=== PATIENT | male | born 1990 | race Two or more races ===

== ENCOUNTER 2016-10-15 00:55 | Inpatient (IN) | payer MEDICAID ==
[2016-10-15] VITALS (35 sets, daily range): BP systolic 82–133; BP diastolic 44–89
[~2016-10-15] VITALS: Ht 165.1 cm; Wt 55.8 kg
[~2016-10-15 00:55] MED LIST: ACET-868 GT; ALBU2.5V13 IN; ALBU2.5V13 NEB; BISA10SU61 PR; CHLO15MO2 MM; CRAN3875 GT; DEXT1DRO3 EACHEYE; DOCU50LI GT; FAMO-130 GT; HEPA500013 SQ; IPRA0.2S9 HHN; IPRA0.2S9 IH; LACT-96 GT; MAGN400O6 GT; METO25TA6 GT; METO5SOL2 GT; MULT-213 GT; MUPI22OI7; NA P133E RC; SACC250C6 GT; VIT500LI GT
[2016-10-15] MEDS ORDERED: LEVOFLOXACIN 750 MG /D5W 150ML PIGGYBACK IV ONE (01:00)
[2016-10-15] MEDS ORDERED: IV NS 0.9% 1,000 ML BAG IV ONE ×2 (01:00→12:30)
[2016-10-15] MEDS ORDERED: MEROPENEM 1,000 MG in IV NS 0.9% 100 ML IV ONE (01:00)
[2016-10-15] MEDS ORDERED: ACETAMINOPHEN ES 500 MG TABLET PO ONE (01:00)
--- NOTE | 2016-10-15 01:00 | NUR ---
bb from [facility]; elevated temp and tachycardic PT BIBRA FROM [facility] FOR ELEVATED TEMP AND TACHYCARDIA. PT OBTUNDED. CONNTECTED TO VENT WITH PRESCRIBED SETTINGS AC 18, TV 400 FIO2 40% AND PEEP 5. PT NTOED WITH GTUBE INTACT AND PATENT. F/C REPLACED PER DR. CAPELLAN ORDER. NO NVD NOTED. PT NOT DIAPHORETIC. PT GOWNED AND PLACED ON MONITOR. DR CAPELLAN AT BEDSIDE FOR EVAL.
[2016-10-15] MEDS ORDERED: ACETAMINOPHEN 650 MG/20.3 ML UDC ONE (01:20)
--- NOTE | 2016-10-15 01:31 | NUR ---
VERBAL ORDERS PER DR. CAPELLAN TO GIVE TYLENOL LIQ 1000MG VVIA GT ONE TIME NOW.
[2016-10-15 01:34] LABS: EOSINOPHILS % (AUTO) 0.1 % (0.0-6.0); HEMATOCRIT 33 % (39-51); HEMOGLOBIN 10.5 g/dL (13.5-17.5); LYMPHOCYTES # (AUTO) 0.7 /CMM (0.8-4.8); LYMPHOCYTES % (AUTO) 4.5 % (20.0-44.0); MEAN CORPUSCULAR HEMOGLOBIN 26 PG (26.0-33.0); MEAN CORPUSCULAR HGB CONC 32 g/dl (31.0-36.0); MEAN CORPUSCULAR VOLUME 82 fL (80-96); MONOCYTES # (AUTO) 0.9 /CMM (0.1-1.30); MONOCYTES % (AUTO) 5.5 % (2.0-12.0); NEUTROPHILS # (AUTO) 14.5 /CMM (1.8-8.9); NEUTROPHILS % (AUTO) 89.9 % (43.0-81.0); PLATELET COUNT (AUTO) 608 /CMM (150-450); RDW COEFFICIENT OF VARIATION 16.4 (11.5-15.0); RED BLOOD CELL COUNT(AUTO) 3.97 MIL/uL (4.5-6.0); WHITE BLOOD COUNT (AUTO) 16.1 K/uL (4.3-11.0)
--- NOTE | 2016-10-15 01:35 | NUR ---
XRAY AT BEDSIDE
[2016-10-15 01:39] LABS: CALCIUM, SERUM 9.4 mg/dL (8.5-10.1); CREATININE 0.2 mg/dL (0.6-1.3); POTASSIUM 4.2 mmol/L (3.5-5.1)
[2016-10-15 01:45] LABS: ALBUMIN 3.1 g/dL (3.4-5.0); BILIRUBIN,DIRECT 0.2 mg/dL (0.0-0.2); BILIRUBIN,TOTAL 0.4 mg/dL (0.2-1.0); TOTAL PROTEIN, SERUM 9.6 g/dL (6.4-8.2)
[2016-10-15 01:49] LABS: LACTIC ACID 0.7 mmol/L (0.4-2.0)
--- NOTE | 2016-10-15 02:01 | NUR ---
EVE MOTHER [phone]
--- NOTE | 2016-10-15 02:34 | NUR ---
URINE COLLECTED. CALLED LAB FOR VAULT WORKER.
[2016-10-15 02:37] LABS: INR 1.05 (0.87-1.13); PROTHROMBIN TIME 11.3 SECS (9.5-12.7)
[2016-10-15] MEDS ORDERED: IV NS 0.9% 2,000 ML ONE (02:58)
[2016-10-15] MEDS ORDERED: IV SET PRIMARY 1 EA INFUS.SET MC ONE (02:58)
--- NOTE | 2016-10-15 03:05 | NUR ---
SAMPLE MOUNTER CATILAN AT BEDSIDE FOR EVAL.
[2016-10-15] MEDS ORDERED: MEROPENEM 1 G VIAL IV ONE (03:07)
[2016-10-15] MEDS ORDERED: IV NS 0.9% 100 ML IV ONE (03:08)
[2016-10-15] MEDS ORDERED: IV SET PRIMARY PUMP SET 1 EA INFUS.SET MC ONE ×3 (03:08→12:38)
[2016-10-15 03:11] LABS: APPEARANCE,URINE CLOUDY (CLEAR)
[2016-10-15 03:12] LABS: COLOR,URINE YELLOW (YELLOW)
[2016-10-15 03:13] LABS: PROTEIN,URINE 2+ mg/dl (NEGATIVE)
[2016-10-15 03:14] LABS: BILIRUBIN,URINE NEGATIVE (NEGATIVE); BLOOD, URINE 3+ Ery/uL (NEGATIVE); KETONES,URINE NEGATIVE (NEGATIVE); UGLUCOSE NEGATIVE (NEGATIVE)
[2016-10-15 03:15] LABS: LEUKOCYTE ESTERASE ,URINE 3+ (NEGATIVE); NITRITE, URINE POSITIVE (NEGATIVE); UROBILINOGEN,URINE 0.2 EU/dL (0.2)
[2016-10-15] MEDS ORDERED: IBUPROFEN SUSP 100 MG/5 ML UDC ONE (03:15)
--- NOTE | 2016-10-15 03:16 | NUR ---
ICU BED 258 PER HOUSE SUP
[2016-10-15 03:17] LABS: ADD URINE CULTURE YES; BACTERIA,URINE 3+ /HPF (None Seen); RBC,URINE TOO NUMEROUS TO COUN /HPF (0-2); SQUAMOUS EPITHELIAL CELL,UR Rare /HPF (None Seen); WBC,URINE TOO NUMEROUS TO COUN /HPF (0-3)
[2016-10-15 03:21] LABS: TRIPLE PHOSPHATE CRYSTAL,UR Rare /HPF (None Seen)
--- NOTE | 2016-10-15 03:26 | NUR ---
RECTAL TEMP 100.4. DR CAPELLAN AWARE.
[2016-10-15] MEDS ORDERED: ACETAMINOPHEN SUSP 80 MG/0.8 ML BOTTLE PO PRN (03:30)
[2016-10-15] MEDS ORDERED: IBUPROFEN SUSP 100 MG/5 ML UDC PO PRN ×2 (03:30→04:30)
[2016-10-15] MEDS ORDERED: LEVOFLOXACIN 750 MG /D5W 150ML 150 ML IV ONE (03:45)
--- NOTE | 2016-10-15 03:59 | NUR ---
REPORT GIVEN TO SAFETY AND HEALTH CONSULTANT FOR CONTINUE TO CARE.
--- NOTE | 2016-10-15 04:09 | NUR ---
PT TRANSFERED TO ICU VIA ACLS PROTOCOL.
--- NOTE | 2016-10-15 04:20 | NUR ---
SERVICE NOW DEVELOPER NOTES RECEIVED PT FROM ER. DX OF SEPSIS AND UTI. PT IS OBTUNDED, NO REFLEXES, NO WITHDRAWAL TO DEEP PAIN. TELE READS ST AT 108 BPM. ON VENT VIA TRACH, SETTINGS OF AC 18, TV 400, FIO2 40%, PEEP 5, TARIK WELL. SPB RANGING 86-93. RIGHT HAND 22G IV NOT WORKING, REMOVED. LEFT FOOT 20G IV RUNNING 2L NS BOLUS AND LEVAQUIN. SKIN ULCER NOTED AT LEFT BUTTOCKS. NEW RENEE CATH PLACED IN ER, DRAINING TO CLOUDY YELLOW URINE. PT NOTED WITH DIAPHORESIS, AFEBRILE. MODERATED AMOUNTS OF CLEAR THIN ORAL SECRETIONS. ORAL CARE RENDERED, BED BATH GIVEN, HOB ELEVATED, TURNED AND REPOSITIONED.
[2016-10-15] MEDS ORDERED: ENOXAPARIN SODIUM 40 MG/0.4 ML DISP.SYRIN SQ SCH (04:30)
[2016-10-15] MEDS ORDERED: METOPROLOL TARTRATE 25 MG TABLET GT SCH (04:30)
[2016-10-15] MEDS ORDERED: ENOXAPARIN SODIUM 40 MG/0.4 ML DISP.SYRIN SQ ONE (04:37)
[2016-10-15] MEDS ORDERED: IV NS 0.9% 1,000 ML ONE (04:38)
[2016-10-15] MEDS: IV NS 0.9% 1,000 ML IV PRN ×2 (04:48→12:42)
[2016-10-15] MEDS: LEVOFLOXACIN 750 MG /D5W 150ML 750 MG in PREMIX 1 EA IV SCH (04:58)
--- NOTE | 2016-10-15 05:15 | NUR ---
ACQUISITIONS EDITOR NOTES PT NOTED WITH LOW SBP RANGING 87-90. KENTRELL SKILL LABOR CONTACTED AND MADE AWARE. ORDER RECEIVED FOR MIDLINE, WANTS TO HOLD OFF ON LEVOPHED AT THIS TIME.
[2016-10-15] MEDS: IPRATROPIUM NEB FS 0.5 MG/2.5 ML AMPUL.NEB IH SCH ×3 (07:22→20:25)
--- NOTE | 2016-10-15 07:30 | NUR ---
ICU/RN: PT RECEIVED, INTUBATED, TOLERATING CURRENT VENT SETTINGS, OBTUNDED, DOES NOT RESPOND TO DEEP PAIN, GAG AND COUGH REFLEX ABSENT. LARGE AMOUNT OF CLEAR WHITE SECRETIONS SUCTIONED. HOB ELEVATED PER ASPIRATION PRECAUTIONS. PT FOR MIDLINE PLACEMENT. ALARM SOUNDS AUDIBLE. WILL CONT TO MONITOR PT.
[2016-10-15] MEDS ORDERED: ALBUTEROL FS 2.5 MG/0.5 ML VIAL.NEB NEB SCH (07:35)
--- NOTE | 2016-10-15 07:37 | NUR ---
RT PATIENT REC'D TRACHED ON [facility] VENT WITH ORDERED SETTINGS SET PER MD TOLERATED WELL. VENT ALARMS CHECKED + AUDIBLE. PATIENT NON RESPONSIVE, NO DISTRESS NOTED. SX'D WITH SMALL AMT PALE SEMITHICK SECRETIONS. B/S MG. STEVOU BAG AT HOB Addendum: 10/15/16 at 1755 by ROMIE RODRIGUEZ RT Amended: Links added.
[2016-10-15] MEDS ORDERED: SECONDARY IV SET 1 EA INFUS.SET MC ONE ×2 (08:37→15:30)
[2016-10-15] MEDS: MULTIVITAMIN LIQ 5 ML UDC GT SCH (08:55)
[2016-10-15] MEDS: ASCORBIC ACID SYRUP 500 MG/5 ML UDC GT SCH (08:56)
[2016-10-15] MEDS: CHLORHEXIDINE GLUCONATE 15 ML UDC MM SCH ×2 (08:56→16:55)
[2016-10-15] MEDS: METOCLOPRAMIDE HCL 10 MG/10 ML UDC GT SCH ×3 (08:56→16:55)
[2016-10-15] MEDS: ATENOLOL 50 MG TABLET GT SCH ×2 (08:56→14:11)
[2016-10-15] MEDS ORDERED: Medication Not On Formulary EA (Cran/Vitc/Mannose/Inulin/Brom (Uti-Stat Liquid) 30 ML) GT SCH (09:00)
[2016-10-15] MEDS ORDERED: SACCHAROMYCES BOULARDII 250 MG CAPSULE PO SCH (09:00)
[2016-10-15] MEDS: LACTOBACILLUS RHAMNOSUS GG 1 EACH CAP.SPRINK PO SCH ×2 (09:38→16:55)
[2016-10-15] MEDS: POLYVINYL ALCOHOL 15 ML BOTTLE EACHEYE SCH ×2 (09:38→17:05)
[2016-10-15] MEDS ORDERED: FIBERSOURCE HN 1,000 ML BOTTLE GT PRN (10:00)
[2016-10-15] MEDS ORDERED: ACETAMINOPHEN 160 MG/5 ML GT PRN (12:00)
[2016-10-15] MEDS ORDERED: IV NS 0.9% 250 ML BAG IV ONE (12:00)
[2016-10-15] MEDS ORDERED: IV NS 0.9% 1,000 ML IV PRN ×2 (12:30)
--- NOTE | 2016-10-15 12:30 | NUR ---
ICU/RN: DR TERRY AT THE BEDSIDE; NOTIFIED ON INCREASED HR 120'S, MINIMAL URINE OUTPUT AND DECREASED BP. ORDERS FOR IVF BOLUS AND FLUIDS NOTED AND CARRIED OUT.
--- NOTE | 2016-10-15 12:37 | NUR ---
RT PER DR CRISOSTOMO RR ON VENT LOWERED TO 14. RN AWARE. VENT ALARMS CHECKED + AUDIBLE. AMBU BAG AT HOB Addendum: 10/15/16 at 1238 by ROMIE RODRIGUEZ RT Amended: Links added.
[2016-10-15] MEDS: FIBERSOURCE HN 1,000 ML BOTTLE GT PRN (12:43)
[2016-10-15] MEDS: ACETAMINOPHEN 650 MG/20.3 ML UDC GT PRN ×2 (12:59→22:03)
[2016-10-15] MEDS ORDERED: MEROPENEM 500 MG in IV NS 0.9% 50 ML IV SCH (13:00)
[2016-10-15] MEDS: MEROPENEM 1 G in IV NS 0.9% 100 ML IV SCH ×2 (13:00→22:03)
[2016-10-15] MEDS: ALBUTEROL FS 2.5 MG/3 ML VIAL.NEB NEB SCH ×2 (13:30→20:25)
--- NOTE | 2016-10-15 13:55 | NUR ---
ICU/RN: DR MURRAY AT BEDSIDE; UPDATED ON PT STATUS. ORDERS NOTED AND CARRIED OUT.
[2016-10-15] MEDS ORDERED: LINEZOLID RTU BAG 600 MG in PREMIX 1 EA IV SCH (14:00)
--- NOTE | 2016-10-15 14:00 | NUR ---
ICU/RN: NON-ADMIN 500CC IV NS AND DUPLICATED 1L NS BOLUS. CLARIFIED WITH DR TERRY. ONLY ADMIN 1L NS BOLUS X1.
--- NOTE | 2016-10-15 14:01 | NUR ---
WOUND CARE CONSULT: PT NOT SEEN YET FOR SKIN ASSESSMENT DUE TO UNSTABLE PER RN. WILL SEE PT PT CONDITION PERMITS. ADMISSION PHOTO SHOWS A WOUND ON LEFT BUTTOCK. RECOMMENDATIONS MADE BASED ON ADMISSION PHOTO AND NURSING REPORT. PT ON FIRST STEP MATTRESS. PT TO BE TURNED AND REPOSITIONED EVERY 2 HRS PT CONDITION PERMITS, HEELS FLOATED. SKIN PROTECTION AND WOUND RECOMMENDATIONS DISCUSSED WITH NURSING STAFF. MD IN AGREEMENT WITH PLAN OF CARE.
[2016-10-15] MEDS: Z GUARD REMEDY 2 OZ OINT TP SCH (15:07)
[2016-10-15] MEDS: HYDROGEL DRESSING 90 GM TUBE TP PRN (15:07)
[2016-10-15] MEDS: HYDROGEL DRESSING 90 GM TUBE TP SCH (15:07)
[2016-10-15] MEDS: Z GUARD REMEDY 2 OZ OINT TP PRN (15:07)
[2016-10-15] MEDS: LINEZOLID RTU BAG 600 MG in PREMIX 1 EA IV SCH (15:41)
--- NOTE | 2016-10-15 16:00 | NUR ---
ICU/RN: BED BATH PROVIDED. WITH ONE MODERATE AMOUNT OF SOFT GREEN STOOL. WOUND CARE RENDERED. TOLERATED WELL.
--- NOTE | 2016-10-15 17:44 | NUR ---
RN NOTES RECEIVED PT FROM ICU IN ROOM 112-2, PT IS OBTUNDED, VENT DEPENDENT , TOLERATING CURRENT SETTING WELL, TRACH CARE AND ORAL SUCTIONING DONE , PT ON TELE ST IN 100'S, FIBERSOURCE RUNNING AT 35CC/HR VIA GT , NO RESIDUAL NOTED, L UPPER ARM MIDLINE CLEAN AND DRY ,SR UP x3, CALL LIGHT WITHIN EASY REACH, BED LOCKED AND IN LOW POSITION , WILL CONTINUE TO MONITOR PT CLOSELY AND NOTIFY MD FOR ANY SIGNIFICANT CHANGES.
--- NOTE | 2016-10-15 17:45 | NUR ---
ICU/RN: PT TRANSFERRED TO GAIL 112-2 WITHOUT INCIDENT ACCOMPANIED BY RN AND RT; REPORT GIVEN. BELONGINGS AND MEDS TRANSFERRED WITH PT.
--- NOTE | 2016-10-15 18:21 | NUR ---
RN NOTES PT STABLE, MOM AT THE BEDSIDE , TRACH CARE DONE.
--- NOTE | 2016-10-15 19:30 | NUR ---
RN INITIAL NOTE RECEIVED PT IN NO ACUTE DISTRESS IN BED. PT IS OBTUNDED. PT IS ON MECHANICAL VENT VIA TRACH. TRACH SITE IS CLEAN DRY INTACT AND PATENT. PT TOLERATING VENT SETTING WELL WITH O2 SAT @ 100%. PT IS ON TELE WITH ST ON THE MONITOR. PT HAS GTUBE THAT IS CLEAN DRY INTACT AND PATENT WITH FIBERSOURCE @ 35ML/HR, BUT WILL INCREASE (PER DIETARY) TO 65ML/HR. PT HAS F/C THAT CLEAN DRY INTACT AND PATENT WITH BHANU COLOR URINE DRAINING. PT HAS KALEB MIDLINE THAT IS CLEAN DRY INTACT AND PATENT WITH NS @ 75ML/HR. BED IN LOW LOCK POSITION WITH RIALS UP X 2. ALL SAFETY MEASURES ENSURED AND CARRIED OUT. WILL CONTINUE TO MONITOR PT.
--- NOTE | 2016-10-15 20:51 | NUR ---
pt received on vent via trach, settings as charted ambu bag at bedside alarms set and audible suctioned a small amount of thick yellow secretions breath sounds equal bilateral coarse pt receiving albuterol and atrovent q6 Addendum: 10/15/16 at 2052 by DRAGAN HAN RT Amended: Links added.
[2016-10-16] VITALS: BP 105/60
[2016-10-16] MEDS: IPRATROPIUM NEB FS 0.5 MG/2.5 ML AMPUL.NEB IH SCH ×4 (02:19→19:54)
[2016-10-16] MEDS: ALBUTEROL FS 2.5 MG/3 ML VIAL.NEB NEB SCH ×4 (02:19→19:30)
[2016-10-16] MEDS ORDERED: MEROPENEM 500 MG in IV NS 0.9% 50 ML IV SCH (03:00)
[2016-10-16] MEDS: LINEZOLID RTU BAG 600 MG in PREMIX 1 EA IV SCH ×2 (03:00→15:48)
[2016-10-16 04:00] VITALS: BP 96/62
[2016-10-16] MEDS: MEROPENEM 1 G in IV NS 0.9% 100 ML IV SCH ×3 (05:54→21:00)
--- NOTE | 2016-10-16 06:50 | NUR ---
RN CLOSING PT REMAINS IN NO ACUTE DISTRESS IN BED. PT DID NOT HAVE ANY SIGNIFICANT CHANGE IN CONDITION. ALL NEEDS MET ALL ORDERS CARRIED OUT. ALL SAFETY MEASURES ENSURED AND CARRIED OUT. WILL ENDORSE REPORT TO AM RN FOR CONTINUITY OF CARE.
[2016-10-16 08:00] VITALS: BP 125/78
--- NOTE | 2016-10-16 08:00 | NUR ---
RN INITIAL NOTE PT RECEIVED IN BED. ON TELE SINUS TACHYCARDIA HR 103. PT IS OBTUNDED. TRACH SHILEY #6, AC14, TV 400, FI02 40. PT SATING WELL. NO S/S OF RESPIRATORY DISTRESS OR SOB, GT INTACT. PT TOLERATING FEEDING WELL. FIBERSOURCE 50ML/HR. IV DRESSING C/D/I. FLUSHED AND PATENT. F/C INTACT, DRAINING WITH GRAVITY. SMALL SKIN WOUND ON BUTTOCKS, CLEANED AND APPLIED NEW DRESSING. SKIN WARM AND DRY TO TOUCH. NO S/S OF PAIN OR DISCOMFORT. SAFETY MEASURES IN PLACE, WILL CONTINUE TO MONITOR.
[2016-10-16] MEDS: ASCORBIC ACID SYRUP 500 MG/5 ML UDC GT SCH (08:18)
[2016-10-16] MEDS: MULTIVITAMIN LIQ 5 ML UDC GT SCH (08:19)
[2016-10-16] MEDS: METOCLOPRAMIDE HCL 10 MG/10 ML UDC GT SCH ×3 (08:19→17:13)
[2016-10-16] MEDS: CHLORHEXIDINE GLUCONATE 15 ML UDC MM SCH ×2 (08:19→17:13)
[2016-10-16] MEDS: POLYVINYL ALCOHOL 15 ML BOTTLE EACHEYE SCH ×2 (08:19→17:13)
[2016-10-16] MEDS: LACTOBACILLUS RHAMNOSUS GG 1 EACH CAP.SPRINK PO SCH ×2 (08:19→17:13)
[2016-10-16] MEDS: Z GUARD REMEDY 2 OZ OINT TP SCH (08:21)
[2016-10-16] MEDS: ATENOLOL 50 MG TABLET GT SCH (08:21)
[2016-10-16] MEDS: HYDROGEL DRESSING 90 GM TUBE TP PRN (08:22)
[2016-10-16] MEDS: HYDROGEL DRESSING 90 GM TUBE TP SCH (08:25)
[2016-10-16] MEDS: ENOXAPARIN SODIUM 40 MG/0.4 ML DISP.SYRIN SQ SCH (08:45)
--- NOTE | 2016-10-16 08:55 | NUR ---
WOUND CARE CONSULT: PT PRESENTS WITH EDEMA TO LOWER EXTREMITIES, IMMOBILITY AND TINY WOUND TO LEFT BUTTOCK PRESENT ON ADMISSION. SOME REDNESS TO SURROUNDING AREA WITH SLIGHT INDURATION. RECOMMEND SURGICAL CONSULT. CONTINUE PRESENT WOUND TREATMENT. DISCUSSED SKIN PROTECTION WITH NURSING STAFF. PT ON FIRST STEP MATTRESS. IN AGREEMENT WITH PLAN OF CARE. Addendum: 10/16/16 at 0857 by SHELIA ARGUELLES WNDNU Amended: Links added.
[2016-10-16 09:55] LABS: BASOPHILS % (AUTO) 0.2 % (0.0-2.0); EOSINOPHILS % (AUTO) 0.2 % (0.0-6.0); HEMATOCRIT 28 % (39-51); HEMOGLOBIN 8.9 g/dL (13.5-17.5); LYMPHOCYTES # (AUTO) 1.2 /CMM (0.8-4.8); MEAN CORPUSCULAR HEMOGLOBIN 26 PG (26.0-33.0); MEAN CORPUSCULAR HGB CONC 32 g/dl (31.0-36.0); MEAN CORPUSCULAR VOLUME 82 fL (80-96); MONOCYTES # (AUTO) 0.8 /CMM (0.1-1.30); MONOCYTES % (AUTO) 7.2 % (2.0-12.0); NEUTROPHILS # (AUTO) 8.7 /CMM (1.8-8.9); NEUTROPHILS % (AUTO) 81.4 % (43.0-81.0); PLATELET COUNT (AUTO) 444 /CMM (150-450); RDW COEFFICIENT OF VARIATION 15.7 (11.5-15.0); RED BLOOD CELL COUNT(AUTO) 3.39 MIL/uL (4.5-6.0); WHITE BLOOD COUNT (AUTO) 10.6 K/uL (4.3-11.0)
[2016-10-16 10:05] LABS: CALCIUM, SERUM 8.5 mg/dL (8.5-10.1); CREATININE 0.2 mg/dL (0.6-1.3); POTASSIUM 3.3 mmol/L (3.5-5.1)
--- NOTE | 2016-10-16 11:30 | NUR ---
RN NOTE PT RUNNING FEVER, TYLENOL GIVEN, ICE PACKS FOR COOLING, FAN. NOTIFIED
[2016-10-16] MEDS: ACETAMINOPHEN 650 MG/20.3 ML UDC GT PRN ×2 (11:37→22:26)
[2016-10-16 12:00] VITALS: BP 99/65
--- NOTE | 2016-10-16 13:00 | NUR ---
SUPERVISOR ELECTROLYTIC TINNING NOTE HR ON TELE MONITOR ST 110-120 ,ELY GONZALEZ DNP AWARE NO NEW ORDER GIVEN AT THIS TIME
--- NOTE | 2016-10-16 13:15 | NUR ---
nutrition consult received on 10/16 regarding TF rate, RD assessed patient on 10/15. currently on PEG feeding of FIBERSOURCE HN@50ml/hr, suggest Nutren pulmonary @ 45ml/hr x24hrs due to respiratory failure w/trach when medically feasible.
[2016-10-16] MEDS ORDERED: POTASSIUM CHLORIDE 20 MEQ POWDER PACKET NG SCH (14:00)
[2016-10-16] MEDS ORDERED: IV SET PRIMARY PUMP SET 1 EA INFUS.SET MC ONE (15:35)
[2016-10-16 16:00] VITALS: BP 116/76
--- NOTE | 2016-10-16 17:00 | NUR ---
LEAN LEADER NOTE ELY JAMA DNP ARE THAT PATIENT HAD EARLIER T101,1 TYLENOL GIVEN AND COOLING MEASURE PROVIDED , WILL CONT TO MONITOR CLOSELY, IVF STOPPED ORDERED
--- NOTE | 2016-10-16 18:27 | NUR ---
N CLOSING NOTE PT RESTING IN BED COMFORTABLY, ALL MD ORDERS CARRIED OUT. PT KEPT CLEAN AND DRY. IV SITE C/D/I PATENT, RUNNING FLUIDS. ALL SAFETY MEASURES IN PLACE AT ALL TIMES. REPORT WILL BE GIVEN TO PM RN FOR HARRY.
[2016-10-16 20:00] VITALS: BP 138/84
--- NOTE | 2016-10-16 20:00 | NUR ---
RECEIVED PATIENT OBTUNDED.AFEBRILE.NORMOTENSIVE.ST 123 PER MONITOR.NO ACUTE DISTRESS NOTED.CHRONIC VENT TRACH PATIENT ON AC 14,TV 400,FIO2 40%,PEEP 5.SPO2 100%.BILATERAL RHONCHI ON AUSCULTATION.SUCTION SMALL AMOUNT WHITE SECRETION.GT FEEDING NOT TOLERATED. RESIDUAL 250 ML.FEEDING OH HOLD FOR NOW WILL RECHECK RESIDUAL IN 2 HRS.FC TO GRAVITY DRAINING YELLOW URINE.REPOSITIONED TO COMFORT.UE AND LE OFFLOADED WITH PILLOWS.SAFETY CHECKED WITH CALL LIGHT AT BEDSIDE.REDNESS NOTED TO BILATERAL NECK,RIGHT SHOULDER AND RIGHT UPPER CHEST PHOTO TAKEN.CONTINUE TO MONITOR.
--- NOTE | 2016-10-16 20:03 | NUR ---
ALBUTEROL NOT GIVEN DUE TO INCREASE HR 138. RN NOTIFIED.
--- NOTE | 2016-10-16 21:30 | NUR ---
PT RECEIVED TRACH WITH MARIA E 6 ON VENT. NO RESP DISTRESS NOTED. PT TOLERATING VENT SETTINGS. SX'D FOR SML AMT OF THICK WHITE SECRETIONS. VENT ALARMS SET AND AUDIBLE. AMBU BAG AT BEDSIDE. VENT PLUGGED INTO RED OUTLET. WILL CONTINUE TO MONITOR. Addendum: 10/16/16 at 2131 by JAVI NOLAN RT Amended: Links added.
--- NOTE | 2016-10-16 22:45 | NUR ---
PATIENT FEBRILE 103.8 TEMPORAL.TYLENOL ADMINISTERED PRN. COMPLETE BED BATH RENDERED. AND COMPLETE LINENS CHANGED.APPLIED COOLING BLANKET AND CONTINUE TO MONITOR.ELECTRIC FAN ON.
[2016-10-17] VITALS: BP 103/59
--- NOTE | 2016-10-17 | NUR ---
PATIENT STATUS UNCHANGED.LATEST TEMP 100.3 CONTINUES COOLING MEASURES DONE. GT RESIDUAL 100 ML.GT FEEDING RESTARTED.HOB KEPT ELEVATED AT 30 DEGREES.
[2016-10-17] MEDS: IPRATROPIUM NEB FS 0.5 MG/2.5 ML AMPUL.NEB IH SCH ×4 (01:06→19:48)
[2016-10-17] MEDS: ALBUTEROL FS 2.5 MG/3 ML VIAL.NEB NEB SCH ×4 (01:07→19:48)
[2016-10-17] MEDS: LINEZOLID RTU BAG 600 MG in PREMIX 1 EA IV SCH (03:11)
[2016-10-17] MEDS ORDERED: SECONDARY IV SET 1 EA INFUS.SET MC ONE (03:12)
[2016-10-17 04:00] VITALS: BP_SYST 103; BP_SYST 104; BP_DIAS 59; BP_DIAS 66
--- NOTE | 2016-10-17 04:00 | NUR ---
PATIENT REDNESS TO NECK,SHOULDER AND RIGHT CHEST RESOLVED.LATEST TEMP 98.7.IV ANTIBIOTICS ADMINISTERED.GT FEEDING RESIDUAL 120 ML.FEEDING CONTINUED.
[2016-10-17] MEDS: LEVOFLOXACIN 750 MG /D5W 150ML 750 MG in PREMIX 1 EA IV SCH (05:03)
[2016-10-17] MEDS: MEROPENEM 1 G in IV NS 0.9% 100 ML IV SCH ×3 (06:42→20:35)
--- NOTE | 2016-10-17 06:48 | NUR ---
PATIENT REMAINS OBTUNDED.NO DISTRESS NOTED.VS STABLE.LATEST TEMP 97.7. ST 120'S. ALL NEEDS ANTICIPATED AND MET.GOOD URINE OUTPUT.
[2016-10-17 07:09] LABS: BASOPHILS % (AUTO) 0.1 % (0.0-2.0); EOSINOPHILS # (AUTO) 0.2 /CMM (0.0-0.7); EOSINOPHILS % (AUTO) 1.7 % (0.0-6.0); HEMATOCRIT 25 % (39-51); HEMOGLOBIN 8.1 g/dL (13.5-17.5); LYMPHOCYTES # (AUTO) 1.3 /CMM (0.8-4.8); MEAN CORPUSCULAR HEMOGLOBIN 27 PG (26.0-33.0); MEAN CORPUSCULAR HGB CONC 33 g/dl (31.0-36.0); MEAN CORPUSCULAR VOLUME 82 fL (80-96); MONOCYTES # (AUTO) 0.7 /CMM (0.1-1.30); MONOCYTES % (AUTO) 7.5 % (2.0-12.0); NEUTROPHILS # (AUTO) 7.1 /CMM (1.8-8.9); NEUTROPHILS % (AUTO) 76.7 % (43.0-81.0); PLATELET COUNT (AUTO) 627 /CMM (150-450); RDW COEFFICIENT OF VARIATION 15.3 (11.5-15.0); RED BLOOD CELL COUNT(AUTO) 2.99 MIL/uL (4.5-6.0); WHITE BLOOD COUNT (AUTO) 9.2 K/uL (4.3-11.0)
--- NOTE | 2016-10-17 07:20 | NUR ---
RN NOTE: RECEIVED PATIENT WHILE RESTING IN BED. PATIENT OBTUNDED, VENT/TRACH DEPENDANT. NO SOB, NO COMPLICATIONS AT THIS TIME. F/C INTACT. GT INTACT. IV AXB INFUSING. PATIENTS TEMPERATURE BEING MONITORED, NO FEVER AT THIS TIME. PATIENTS NEEDS ATTENDED TO, SAFETY MEASURES IN PLACE, WILL CONTINUE TO MONITOR.
[2016-10-17 07:37] LABS: CALCIUM, SERUM 8.9 mg/dL (8.5-10.1); POTASSIUM 4.4 mmol/L (3.5-5.1)
[2016-10-17 07:57] LABS: CREATININE 0.1 mg/dL (0.6-1.3)
[2016-10-17 08:00] VITALS: BP_SYST 131; BP_SYST 139; BP_DIAS 93
--- NOTE | 2016-10-17 08:00 | NUR ---
RN NOTE: GT RESIDUAL IS 250ML. GT FEEDING HELD. MD NOTIFIED, WILL CONTINUE TO MONITOR.
[2016-10-17] MEDS: POLYVINYL ALCOHOL 15 ML BOTTLE EACHEYE SCH ×2 (08:21→16:03)
[2016-10-17] MEDS: METOCLOPRAMIDE HCL 10 MG/10 ML UDC GT SCH ×3 (08:21→16:03)
[2016-10-17] MEDS: ASCORBIC ACID SYRUP 500 MG/5 ML UDC GT SCH (08:21)
[2016-10-17] MEDS: LACTOBACILLUS RHAMNOSUS GG 1 EACH CAP.SPRINK PO SCH ×2 (08:22→16:03)
[2016-10-17] MEDS: ATENOLOL 50 MG TABLET GT SCH (08:22)
[2016-10-17] MEDS: MULTIVITAMIN LIQ 5 ML UDC GT SCH (08:22)
[2016-10-17] MEDS: CHLORHEXIDINE GLUCONATE 15 ML UDC MM SCH ×2 (08:22→16:04)
[2016-10-17] MEDS: HYDROGEL DRESSING 90 GM TUBE TP SCH (08:23)
[2016-10-17] MEDS: Z GUARD REMEDY 2 OZ OINT TP SCH (08:23)
[2016-10-17] MEDS: ENOXAPARIN SODIUM 40 MG/0.4 ML DISP.SYRIN SQ SCH (08:25)
[2016-10-17] MEDS: ACETAMINOPHEN 650 MG/20.3 ML UDC GT PRN ×2 (10:32→21:05)
--- NOTE | 2016-10-17 10:43 | NUR ---
RN NOTE: PATIENT HAS TEMPERATURE OF 100.1. TYLENOL ADMINISTERED. COOLING BLANKET APPLIED, WILL CONTINUE TO MONITOR.
--- NOTE | 2016-10-17 11:00 | NUR ---
RN NOTE: PATIENT'S GT RESIDUAL IS 10ML. GT FEEDING RESTARTED, WILL CONTINUE TO MONITOR.
--- NOTE | 2016-10-17 11:15 | NUR ---
RN NOTE: PER ELY JAMA, RESTART GT FEEDING AT 35ML/HR AT THIS TIME AND SLOWLY INCREASE TOLERATED.
[2016-10-17] MEDS: FIBERSOURCE HN 1,000 ML BOTTLE GT PRN (11:19)
[2016-10-17 12:00] VITALS: BP_SYST 143; BP_SYST 144; BP_DIAS 71; BP_DIAS 72
--- NOTE | 2016-10-17 13:00 | NUR ---
RN NOTE: PATIENTS TEMPERATURE HAS COME DOWN TO 98.0. COOLING BLANKET REMOVED. WILL CONTINUE TO MONITOR.
[2016-10-17 16:00] VITALS: BP 143/72
--- NOTE | 2016-10-17 16:00 | NUR ---
RN NOTE: GT RESIDUAL CHECKED, 30 ML RESIDUAL. WILL CONTINUE TO RUN FEEDING AT 35ML/HR
--- NOTE | 2016-10-17 18:48 | NUR ---
RN NOTE: PATIENT RESTING IN BED, VENT DEPENDENT, OBTUNDED. PATIENTS GT FEEDING INFUSING. COOLING BLANKET IN PLACE. NO FEVER AT THIS TIME. PATIENTS NEEDS ATTENDED TO, SAFETY MEASURES IN PLACE, WILL ENDORSE TO SPRAY GUNNER FOR HARRY.
--- NOTE | 2016-10-17 19:30 | NUR ---
FABRIC SOURCER INITIAL NOTES PT RECEIVED IN BED RESTING. OBTUNDED. FAMILY AT BEDSIDE. ON [facility] VENT TOLERATING WELL AND SATING WELL. NO S/S OF RESPIRATORY DISTRESS NOTED AT THIS TIME. ON TELE SINUS TACH 120. IV KALEB MIDLINE CLEAN, DRY AND INTACT PATENT AND FLUSHING WELL. GTUBE FEEDING WELL TOLERATED AT THIS TIME, 10ML RESIDUAL. GTUBE PATENT AND FLUSHING WELL. RENEE CATHETER IN PLACE AND DRAINING BY GRAVITY, CLEAN AND PATENT.HAS COOLING BLANKET IN PLACE. ALL SAFETY MEASURES IN PLACE. WILL CONTINUE TO MONITOR.
[2016-10-17 20:00] VITALS: BP 123/82
[2016-10-17] MEDS: LINEZOLID 600 MG TABLET GT SCH (20:35)
--- NOTE | 2016-10-17 23:30 | NUR ---
CORRUGATED SHEET MATERIAL SHEETER NOTE PT FOUND WITH GTUBE PULLED OUT. RENEE INSERTED TO KEEP OPEN AND RESIDUAL ASPIRATED. MD NORIEGA AWARE AND ORDERED TO FOLLOW UP WITH GI IN THE MORNING. WILL CONTINUE TO MONITOR. ORDERS NOTED AND CARRIED OUT.
[2016-10-18] VITALS: BP 135/97
[2016-10-18] MEDS: ALBUTEROL FS 2.5 MG/3 ML VIAL.NEB NEB SCH ×4 (02:11→20:26)
[2016-10-18] MEDS: IPRATROPIUM NEB FS 0.5 MG/2.5 ML AMPUL.NEB IH SCH ×4 (02:11→20:26)
[2016-10-18] MEDS: LEVOFLOXACIN 750 MG /D5W 150ML 750 MG in PREMIX 1 EA IV SCH (03:30)
[2016-10-18 04:00] VITALS: BP 133/94
--- NOTE | 2016-10-18 05:30 | NUR ---
TURN SUPERVISOR NOTE DUE TO NO GTUBE ACCESS AT THIS TIME, THERE ARE NO IV PAIN MEDICATIONS AVAILABLE TO ADMINISTER FOR TACHYCARDIA. DR. NORIEGA ORDERED MORPHINE 1MG/0.5ML IVP Q4H PRN FOR SEVERE PAIN. ORDERS NOTED AND CARRIED OUT. WILL CONTINUE TO MONITOR.
[2016-10-18] MEDS: MEROPENEM 1 G in IV NS 0.9% 100 ML IV SCH ×3 (05:38→21:00)
--- NOTE | 2016-10-18 06:45 | NUR ---
PHOTO STUDIO ASSISTANT CLOSING NOTE. PT REMAINED STABLE DURING SHIFT. MECH VENT WITH TRACH WELL TOLERATED AND SATING WELL. IV SITE INTACT. RENEE CATHETER DRAINING WELL. TELE-SINUS TACHY DURING SHIFT. GTUBE SITE OPEN AND INTACT WITH RENEE CATHETER. WILL ENDORSE TO NEXT SHIFT FOR GI TO REINSERT GTUBE AND FOR HARRY.
[2016-10-18 07:07] LABS: BASOPHILS % (AUTO) 0.4 % (0.0-2.0); EOSINOPHILS # (AUTO) 0.1 /CMM (0.0-0.7); EOSINOPHILS % (AUTO) 1.4 % (0.0-6.0); HEMATOCRIT 36 % (39-51); HEMOGLOBIN 11.4 g/dL (13.5-17.5); LYMPHOCYTES # (AUTO) 1.7 /CMM (0.8-4.8); LYMPHOCYTES % (AUTO) 17.2 % (20.0-44.0); MEAN CORPUSCULAR HEMOGLOBIN 26 PG (26.0-33.0); MEAN CORPUSCULAR HGB CONC 32 g/dl (31.0-36.0); MEAN CORPUSCULAR VOLUME 82 fL (80-96); MONOCYTES # (AUTO) 0.7 /CMM (0.1-1.30); MONOCYTES % (AUTO) 7.7 % (2.0-12.0); NEUTROPHILS % (AUTO) 73.3 % (43.0-81.0); PLATELET COUNT (AUTO) 498 /CMM (150-450); RED BLOOD CELL COUNT(AUTO) 4.37 MIL/uL (4.5-6.0); WHITE BLOOD COUNT (AUTO) 9.6 K/uL (4.3-11.0)
--- NOTE | 2016-10-18 07:30 | NUR ---
PT RECEIVED RESTING COMFORTABLY IN BED WITH EYES CLOSED. NO S/S OR C/O PAIN OR DISTRESS NOTED. SIDE RAILS UP X2, CALL LIGHT LEFT WITHIN REACH. WILL CONTINUE PLAN OF CARE.
[2016-10-18 08:00] VITALS: BP 111/80
[2016-10-18 08:01] LABS: CALCIUM, SERUM 9.2 mg/dL (8.5-10.1); CREATININE 0.1 mg/dL (0.6-1.3); POTASSIUM 3.7 mmol/L (3.5-5.1)
[2016-10-18] MEDS: MULTIVITAMIN LIQ 5 ML UDC GT SCH (08:13)
[2016-10-18] MEDS: ASCORBIC ACID SYRUP 500 MG/5 ML UDC GT SCH (08:13)
[2016-10-18] MEDS: LINEZOLID 600 MG TABLET GT SCH ×2 (08:13→21:00)
[2016-10-18] MEDS: CHLORHEXIDINE GLUCONATE 15 ML UDC MM SCH ×2 (08:13→16:16)
[2016-10-18] MEDS: METOCLOPRAMIDE HCL 10 MG/10 ML UDC GT SCH ×3 (08:13→16:16)
[2016-10-18] MEDS: LACTOBACILLUS RHAMNOSUS GG 1 EACH CAP.SPRINK PO SCH ×2 (08:13→16:16)
[2016-10-18] MEDS: ATENOLOL 50 MG TABLET GT SCH (08:29)
[2016-10-18] MEDS: ENOXAPARIN SODIUM 40 MG/0.4 ML DISP.SYRIN SQ SCH (08:33)
[2016-10-18] MEDS: POLYVINYL ALCOHOL 15 ML BOTTLE EACHEYE SCH ×2 (08:35→17:40)
[2016-10-18] MEDS: HYDROGEL DRESSING 90 GM TUBE TP SCH (08:35)
[2016-10-18] MEDS: Z GUARD REMEDY 2 OZ OINT TP SCH (08:35)
--- NOTE | 2016-10-18 10:00 | NUR ---
PAGED DR RIBEIRO. AWAITING CALL BACK
--- NOTE | 2016-10-18 10:15 | NUR ---
RECEIVED CALL MD RIBEIRO.
[2016-10-18] MEDS ORDERED: DIATR MEGLU/DIATRIZOATE SODIUM 30 ML BOTTLE (GASTROGRAPHIN) ONE (10:24)
--- NOTE | 2016-10-18 10:25 | NUR ---
AT BEDSIDE DR RIBEIRO FOR GTUBE REPLACEMENT. NEW ORDERS RECEIVED, WILL CARRY OUT.
[2016-10-18 12:51] VITALS: BP 102/62
[2016-10-18 16:00] VITALS: BP 108/66
--- NOTE | 2016-10-18 18:22 | NUR ---
CHANGE OF SHIFT REPORT PT RESTING COMFORTABLY IN BED WITH EYES CLOSED. NO S/S OR C/O PAIN OR DISTRESS NOTED. SIDE RAILS UP X2, CALL LIGHT LEFT WITHIN REACH. PT KEPT CLEAN, DRY, AND COMFORTABLE. NO SIGNIFICANT CHANGES SINCE PREVIOUS SHIFT. WILL GIVE REPORT TO JOSE FRANCISCO FLOR.
--- NOTE | 2016-10-18 19:30 | NUR ---
TOASTER OPERATOR INITIAL NOTES PT RECEIVED IN BED RESTING. OBTUNDED. FAMILY AT BEDSIDE. ON [facility] VENT TOLERATING WELL AND SATING WELL. NO S/S OF RESPIRATORY DISTRESS NOTED AT THIS TIME. ON TELE SINUS TACH 120'S. IV KALEB MIDLINE CLEAN, DRY AND INTACT PATENT AND FLUSHING WELL. GTUBE FEEDING WELL TOLERATED AT THIS TIME, 20ML RESIDUAL. GTUBE PATENT AND FLUSHING WELL. RENEE CATHETER IN PLACE AND DRAINING BY GRAVITY, CLEAN AND PATENT.HAS COOLING BLANKET IN PLACE. ALL SAFETY MEASURES IN PLACE. WILL CONTINUE TO MONITOR.
[2016-10-18 20:00] VITALS: BP 103/60
[2016-10-18] MEDS ORDERED: SECONDARY IV SET 1 EA INFUS.SET MC ONE (20:53)
[2016-10-18] MEDS: IBUPROFEN SUSP 100 MG/5 ML UDC GT PRN (22:15)
[2016-10-19] VITALS: BP 126/86
[2016-10-19] MEDS: ALBUTEROL FS 2.5 MG/3 ML VIAL.NEB NEB SCH ×4 (01:33→19:18)
[2016-10-19] MEDS: IPRATROPIUM NEB FS 0.5 MG/2.5 ML AMPUL.NEB IH SCH ×4 (01:33→19:18)
[2016-10-19] MEDS: MORPHINE SULFATE INJ 2 MG/ML DISP.SYRIN IV PRN (01:51)
[2016-10-19 04:00] VITALS: BP 137/91
[2016-10-19] MEDS: MEROPENEM 1 G in IV NS 0.9% 100 ML IV SCH ×3 (04:51→21:10)
[2016-10-19] MEDS ORDERED: IV NS 0.9% 250 ML IV ONE (05:21)
[2016-10-19] MEDS ORDERED: IV SET PRIMARY PUMP SET 1 EA INFUS.SET MC ONE (05:21)
--- NOTE | 2016-10-19 06:30 | NUR ---
CMM PROGRAMMER CLOSING NOTE PT REMAINED STABLE DURING SHIFT. MECH VENT WELL TOLERATED, SATING WELL AND NO S/S OF RESPIRATORY DISTRESS NOTED. IV SITE CLEAN AND INTACT. GTUBE FEEDING WELL TOLERATED AND NO RESIDUAL AT THIS TIME. RENEE CATHETER DRAINING BY GRAVITY AND PATENT. ALL SAFETY MEASURES IN PLACE. WILL ENDORSE TO NEXT SHIFT FOR HARRY.
--- NOTE | 2016-10-19 07:00 | NUR ---
RN NOTES RECEIVED PT ON BED, OBTUNDED , NONVERBAL , VENT DEPENDENT , TRACH CARE DONE , TOLERATING CURRENT SETTING WELL, NO S/S OF RESPIRATORY DISTRESS NOTED AT THIS TIME. ON TELE SINUS TACH 120'S. L UA MIDLINE CLEAN, DRY AND INTACT PATENT AND FLUSHING WELL. TOLERATING G TUBE FEEDING WELL, NO RESIDUAL NOTED , .RENEE CATHETER IN PLACE AND DRAINING BY GRAVITY, CLEAN AND PATENT. COOLING BLANKET IN PLACE. SR UP x3, BED LOCKED AND IN LOW POSITION, ALL SAFETY MEASURES IN PLACE. WILL CONTINUE TO MONITOR PT CLOSELY AN NOTIFY MD FOR ANY SIGNIFICANT CHANGES .
--- NOTE | 2016-10-19 07:37 | NUR ---
RT PATIENT REC'D TRACHED ON [facility] VENT WITH SETTINGS SET PER MD TOLERATED WELL. VENT ALARMS CHECKED + AUDIBLE. TRACH SECURE + IN PROPER POSITION. PATIENT APPEARS COMFORTABLE AND IN NO DISTRESS. SX'D WITH SMALL AMT PALE SEMI-THICK SECRETIONS. B/S DIM COARSE. AMBU BAG AT [facility]. Addendum: 10/19/16 at 0844 by ROMIE RODRIGUEZ RT Amended: Links added.
[2016-10-19 07:40] LABS: CALCIUM, SERUM 8.7 mg/dL (8.5-10.1); CREATININE 0.2 mg/dL (0.6-1.3); POTASSIUM 4.5 mmol/L (3.5-5.1)
[2016-10-19 08:00] VITALS: BP 140/72
[2016-10-19] MEDS: CHLORHEXIDINE GLUCONATE 15 ML UDC MM SCH ×2 (08:23→16:37)
[2016-10-19] MEDS: ASCORBIC ACID SYRUP 500 MG/5 ML UDC GT SCH (08:23)
[2016-10-19] MEDS: MULTIVITAMIN LIQ 5 ML UDC GT SCH (08:24)
[2016-10-19] MEDS: ATENOLOL 50 MG TABLET GT SCH (08:24)
[2016-10-19] MEDS: METOCLOPRAMIDE HCL 10 MG/10 ML UDC GT SCH ×3 (08:24→16:37)
[2016-10-19] MEDS: LINEZOLID 600 MG TABLET GT SCH ×2 (08:24→21:10)
[2016-10-19] MEDS: LACTOBACILLUS RHAMNOSUS GG 1 EACH CAP.SPRINK PO SCH ×2 (08:24→16:37)
[2016-10-19] MEDS: ENOXAPARIN SODIUM 40 MG/0.4 ML DISP.SYRIN SQ SCH (08:25)
[2016-10-19] MEDS: POLYVINYL ALCOHOL 15 ML BOTTLE EACHEYE SCH ×2 (08:26→16:38)
[2016-10-19] MEDS: HYDROGEL DRESSING 90 GM TUBE TP PRN (08:26)
[2016-10-19] MEDS: Z GUARD REMEDY 2 OZ OINT TP SCH (08:26)
[2016-10-19] MEDS: HYDROGEL DRESSING 90 GM TUBE TP SCH (08:27)
[2016-10-19 12:00] VITALS: BP 107/67
--- NOTE | 2016-10-19 12:00 | NUR ---
RN NOTES PT STABLE, TRACH CARE DONE, TOLERATING TF WELL. NO RESIDUAL NOTED .
[2016-10-19] MEDS: IBUPROFEN SUSP 100 MG/5 ML UDC GT PRN (12:18)
[2016-10-19] MEDS: FIBERSOURCE HN 1,000 ML BOTTLE GT PRN (15:55)
[2016-10-19 16:00] VITALS: BP 112/77
--- NOTE | 2016-10-19 18:21 | NUR ---
RN NOTES TRACH CARE DONE , MEDICATED PER MD ORDER ,SUPPORTIVE FAMILY AT THE BEDSIDE, NO TF RESIDUAL NOTED , NO SIGNIFICANT CHANGES NOTED ON THIS SHIFT .
--- NOTE | 2016-10-19 19:23 | NUR ---
PT RECEIVED TRACHED ON VENT SETTINGS CHARTED. TRACH IS SECURE. NO RESP DISTRESS NOTED. SX WITH SMALL WHITE THICK SECRETIONS. VENT IS PLUGGED IN RED OUTLET. VENT ALARMS CHECKED AND AUDIBLE. AMBU BAG BEDSIDE. WILL CONTINUE TO MONITOR Addendum: 10/20/16 at 0459 by CHAVEZ POPE RT Amended: Links added.
[2016-10-19 20:00] VITALS: BP 99/66
[2016-10-20] VITALS (7 sets, daily range): BP systolic 107–143; BP diastolic 70–92
[2016-10-20] MEDS: IPRATROPIUM NEB FS 0.5 MG/2.5 ML AMPUL.NEB IH SCH ×4 (00:47→20:07)
[2016-10-20] MEDS: ALBUTEROL FS 2.5 MG/3 ML VIAL.NEB NEB SCH ×4 (00:47→20:08)
[2016-10-20] MEDS: MEROPENEM 1 G in IV NS 0.9% 100 ML IV SCH ×3 (05:04→21:07)
[2016-10-20 06:37] LABS: EOSINOPHILS # (AUTO) 0.2 /CMM (0.0-0.7); EOSINOPHILS % (AUTO) 1.5 % (0.0-6.0); HEMATOCRIT 36 % (39-51); HEMOGLOBIN 11.6 g/dL (13.5-17.5); LYMPHOCYTES # (AUTO) 1.6 /CMM (0.8-4.8); LYMPHOCYTES % (AUTO) 14.6 % (20.0-44.0); MEAN CORPUSCULAR HEMOGLOBIN 26 PG (26.0-33.0); MEAN CORPUSCULAR HGB CONC 32 g/dl (31.0-36.0); MEAN CORPUSCULAR VOLUME 82 fL (80-96); MONOCYTES # (AUTO) 0.6 /CMM (0.1-1.30); MONOCYTES % (AUTO) 5.3 % (2.0-12.0); NEUTROPHILS # (AUTO) 8.7 /CMM (1.8-8.9); NEUTROPHILS % (AUTO) 78.6 % (43.0-81.0); PLATELET COUNT (AUTO) 565 /CMM (150-450); RDW COEFFICIENT OF VARIATION 15.6 (11.5-15.0); RED BLOOD CELL COUNT(AUTO) 4.44 MIL/uL (4.5-6.0); WHITE BLOOD COUNT (AUTO) 11.1 K/uL (4.3-11.0)
[2016-10-20 06:53] LABS: CALCIUM, SERUM 9.7 mg/dL (8.5-10.1); CREATININE 0.2 mg/dL (0.6-1.3); MAGNESIUM 2.2 mg/dL (1.8-2.4); PHOSPHORUS 3.3 mg/dL (2.5-4.9); POTASSIUM 5.1 mmol/L (3.5-5.1)
--- NOTE | 2016-10-20 07:20 | NUR ---
LAMPS TESTER AND INSPECTOR INITIAL NOTES: Rec'd pt on bed, HOB elevated, obtunded. On MV via trache w/ following settings: Shiley #6 XLT, AC 14, TV 400, FiO2 40%, PEEP 5, saturating at 100%. On telemonitor, ST, HR 123 bpm. Has GT patent & intact, residual checked, on continuous GT feeding Fibersource at 50 ml/hr. Has FC patent & intact, draining to adequate yellow urine output. Pt's KALEB midline on TKO, patent & intact, no signs of infection/ infiltration noted. Call light placed w/in reached. Bed kept low & in locked position. Will continue to monitor.
[2016-10-20] MEDS: METOCLOPRAMIDE HCL 10 MG/10 ML UDC GT SCH ×3 (08:00→16:29)
[2016-10-20] MEDS: CHLORHEXIDINE GLUCONATE 15 ML UDC MM SCH ×2 (08:00→16:29)
[2016-10-20] MEDS: MULTIVITAMIN LIQ 5 ML UDC GT SCH (08:00)
[2016-10-20] MEDS: ASCORBIC ACID SYRUP 500 MG/5 ML UDC GT SCH (08:00)
[2016-10-20] MEDS: ATENOLOL 50 MG TABLET GT SCH (08:00)
[2016-10-20] MEDS: LACTOBACILLUS RHAMNOSUS GG 1 EACH CAP.SPRINK PO SCH ×2 (08:00→16:32)
[2016-10-20] MEDS: LINEZOLID 600 MG TABLET GT SCH ×2 (08:00→21:07)
[2016-10-20] MEDS: Z GUARD REMEDY 2 OZ OINT TP SCH (08:01)
[2016-10-20] MEDS: POLYVINYL ALCOHOL 15 ML BOTTLE EACHEYE SCH ×2 (08:01→16:31)
[2016-10-20] MEDS: HYDROGEL DRESSING 90 GM TUBE TP SCH (08:01)
[2016-10-20] MEDS: ENOXAPARIN SODIUM 40 MG/0.4 ML DISP.SYRIN SQ SCH (08:18)
--- NOTE | 2016-10-20 16:00 | NUR ---
RN NOTES: Pt seen & examined by Dr. Shultz & Dr. Ruiz, w/ no new orders made for now.
[2016-10-20] MEDS: FIBERSOURCE HN 1,000 ML BOTTLE GT PRN (16:29)
--- NOTE | 2016-10-20 18:34 | NUR ---
HIGH SCHOOL ENGLISH TEACHER CLOSING NOTES: No acute changes w/in shift. Pt is obtunded, not in any distress. MV settings tolerated well, saturating at 100%. FC patent & intact. Pt KALEB midline at TKO, infusing well, patent, C/D/I, no signs of infection/ infiltration. GT patent & intact. Wound care done. Turned & repositioned, offload heels done as per protocol. Isolation measures observed. Safety maintained. Will endorse to PM nurse for HARRY.
--- NOTE | 2016-10-20 19:30 | NUR ---
ENZYME CHEMIST INITIAL NOTE RECEIVED PT FROM SUDHEER FLOR. PT IN BED. MOTHER AT BEDSIDE. OBTUNDED. LUNG SOUNDS DIMINISHED. BOWEL SOUNDS PRESENT. GT PATENT AND INTACT WITH 100CC RESIDUAL. IV PATENT AND INTACT. PULSES PRESENT IN ALL EXTREMITIES. FLACCID EXTREMITIES. EXTREMITIES OFFLOADED. IV INTACT AND DRAINING. BED IN LOW LOCKED POSITION. WILL CONTINUE TO MONITOR.
[2016-10-21] VITALS: BP 107/67
[2016-10-21] MEDS: IPRATROPIUM NEB FS 0.5 MG/2.5 ML AMPUL.NEB IH SCH ×4 (00:43→20:28)
[2016-10-21] MEDS: ALBUTEROL FS 2.5 MG/3 ML VIAL.NEB NEB SCH ×4 (00:43→20:28)
[2016-10-21 04:00] VITALS: BP 157/69
[2016-10-21] MEDS ORDERED: IV SET PRIMARY PUMP SET 1 EA INFUS.SET MC ONE (04:01)
[2016-10-21] MEDS ORDERED: IV NS 0.9% 250 ML IV ONE (04:01)
[2016-10-21] MEDS: MEROPENEM 1 G in IV NS 0.9% 100 ML IV SCH ×3 (06:19→20:29)
--- NOTE | 2016-10-21 07:41 | NUR ---
GEM CARVER NOTE PATIENT IN BED ,ALL NEEDS ATTENDED , WITH TRACH TO VENT SETTING ORDERED AMBU BAG AT HOB AT ALL TIME, ON TELE MONITOR ST 124 HR , , WITH F\C TO GRAVITY , WITH G TUBE FEEDING ORDERED, KEEP HOB ELEVATED AT ALL TIME ,LT UPPER ARM MID LINE IN PLACE NO S\S INFECTION NOTED, SEEN BY RT , ON [employer] MATRES, BED IN LOWEST AND LOCKED POSITION, ALL NEEDS ATTENDED, CALL LIGHT WITHIN REACH,WILL CONT TO MONITOR CLOSELY
[2016-10-21 08:00] VITALS: BP 113/81
[2016-10-21 08:43] LABS: BASOPHILS % (AUTO) 0.3 % (0.0-2.0); EOSINOPHILS # (AUTO) 0.2 /CMM (0.0-0.7); EOSINOPHILS % (AUTO) 1.4 % (0.0-6.0); HEMATOCRIT 39 % (39-51); HEMOGLOBIN 12.3 g/dL (13.5-17.5); LYMPHOCYTES # (AUTO) 1.4 /CMM (0.8-4.8); LYMPHOCYTES % (AUTO) 11.8 % (20.0-44.0); MEAN CORPUSCULAR HEMOGLOBIN 26 PG (26.0-33.0); MEAN CORPUSCULAR HGB CONC 32 g/dl (31.0-36.0); MEAN CORPUSCULAR VOLUME 82 fL (80-96); MONOCYTES # (AUTO) 0.5 /CMM (0.1-1.30); MONOCYTES % (AUTO) 4.2 % (2.0-12.0); NEUTROPHILS # (AUTO) 9.5 /CMM (1.8-8.9); NEUTROPHILS % (AUTO) 82.3 % (43.0-81.0); PLATELET COUNT (AUTO) 647 /CMM (150-450); RDW COEFFICIENT OF VARIATION 15.6 (11.5-15.0); RED BLOOD CELL COUNT(AUTO) 4.72 MIL/uL (4.5-6.0); WHITE BLOOD COUNT (AUTO) 11.5 K/uL (4.3-11.0)
[2016-10-21] MEDS: LACTOBACILLUS RHAMNOSUS GG 1 EACH CAP.SPRINK PO SCH ×2 (08:44→16:28)
[2016-10-21] MEDS: LINEZOLID 600 MG TABLET GT SCH ×2 (08:44→20:29)
[2016-10-21] MEDS: MULTIVITAMIN LIQ 5 ML UDC GT SCH (08:44)
[2016-10-21] MEDS: ASCORBIC ACID SYRUP 500 MG/5 ML UDC GT SCH (08:44)
[2016-10-21] MEDS: METOCLOPRAMIDE HCL 10 MG/10 ML UDC GT SCH ×3 (08:44→16:28)
[2016-10-21] MEDS: CHLORHEXIDINE GLUCONATE 15 ML UDC MM SCH ×2 (08:44→16:28)
[2016-10-21] MEDS: ATENOLOL 50 MG TABLET GT SCH (08:45)
[2016-10-21] MEDS: ENOXAPARIN SODIUM 40 MG/0.4 ML DISP.SYRIN SQ SCH (08:47)
[2016-10-21] MEDS: POLYVINYL ALCOHOL 15 ML BOTTLE EACHEYE SCH ×2 (08:49→16:28)
[2016-10-21] MEDS: HYDROGEL DRESSING 90 GM TUBE TP SCH (08:49)
[2016-10-21] MEDS: Z GUARD REMEDY 2 OZ OINT TP SCH (08:50)
[2016-10-21 08:59] LABS: CALCIUM, SERUM 9.6 mg/dL (8.5-10.1); CREATININE 0.2 mg/dL (0.6-1.3); PHOSPHORUS 3.4 mg/dL (2.5-4.9); POTASSIUM 4.9 mmol/L (3.5-5.1)
[2016-10-21 12:00] VITALS: BP 110/72
--- NOTE | 2016-10-21 12:49 | NUR ---
PROGRAMMER ANALYST HEALTH IT NOTE DR. GONZALEZ EXAMINE PT. AWARE THAT LF. ARM RED WARM TO TOUCH AND RT. ARM COOL WITH NORMAL COLOR LEFT ARM ELEVATED. WILL CONTINUE TO MONITOR.
[2016-10-21] MEDS: FIBERSOURCE HN 1,000 ML BOTTLE GT PRN (15:58)
[2016-10-21 16:00] VITALS: BP 129/69
--- NOTE | 2016-10-21 16:39 | NUR ---
BRUSH TRIMMING MACHINE SETTER NOTES PT RESTING COMFORTABLY NOT IN ACUTE DISTRESS, KEEP CLEAN AND DRY , ORAL CARE DONE. WILL CONTINUE TO MONITOR CLOSELY.
--- NOTE | 2016-10-21 18:44 | NUR ---
JIG FILLER NOTE RESTING COMFORTABLY AT THIS TIME, CONT ON VENT SETTING NOT IN ACUTE DISTRESS
--- NOTE | 2016-10-21 19:30 | NUR ---
RN INITIAL NOTES RECEIVED PT ASLEEP ON BED, OBTUNDED, OPENS EYES ONLY. FAMILY AT BEDSIDE. ON VENT, SHILEY 6, AC 14, TV 400, 40% FIO2, PEEP 5. CURRENTLY ST ON THE MONITOR, HR 110'S. RENEE CATH INTACT. ON GTUBE FEEDING OF FIBERSOURCE @ 50MLS/HR, WITH 40MLS RESIDUALS, WILL RECHECK LATER. LEFT UPPER ARM MIDLINE FLUSHED AND PATENT, NO S/S OF INFILTRATION/INFECTION, DRESSING CDI. BED LOW AND LOCKED, SIDERAILS UP, BED ALARM ON. WILL MONITOR
[2016-10-21 20:00] VITALS: BP 111/71
[2016-10-22] VITALS: BP_SYST 119; BP_SYST 134; BP_DIAS 57; BP_DIAS 71
[2016-10-22] MEDS: ALBUTEROL FS 2.5 MG/3 ML VIAL.NEB NEB SCH ×4 (02:24→20:15)
[2016-10-22] MEDS: IPRATROPIUM NEB FS 0.5 MG/2.5 ML AMPUL.NEB IH SCH ×4 (02:24→20:15)
[2016-10-22 04:00] VITALS: BP 103/70
[2016-10-22] MEDS: MEROPENEM 1 G in IV NS 0.9% 100 ML IV SCH ×2 (04:06→13:21)
--- NOTE | 2016-10-22 06:30 | NUR ---
RN CLOSING NOTES PT REMAINS STABLE OF THE MOMENT. ALL DUE MEDS GIVEN. AM CARE PROVIDED. WILL ENDORSE TO AM RN
[2016-10-22 07:44] LABS: BASOPHILS % (AUTO) 0.3 % (0.0-2.0); EOSINOPHILS # (AUTO) 0.2 /CMM (0.0-0.7); EOSINOPHILS % (AUTO) 1.4 % (0.0-6.0); HEMATOCRIT 38 % (39-51); HEMOGLOBIN 12.5 g/dL (13.5-17.5); LYMPHOCYTES # (AUTO) 1.4 /CMM (0.8-4.8); LYMPHOCYTES % (AUTO) 12.1 % (20.0-44.0); MEAN CORPUSCULAR HEMOGLOBIN 27 PG (26.0-33.0); MEAN CORPUSCULAR HGB CONC 33 g/dl (31.0-36.0); MEAN CORPUSCULAR VOLUME 82 fL (80-96); MONOCYTES # (AUTO) 0.5 /CMM (0.1-1.30); MONOCYTES % (AUTO) 4.3 % (2.0-12.0); NEUTROPHILS # (AUTO) 9.5 /CMM (1.8-8.9); NEUTROPHILS % (AUTO) 81.9 % (43.0-81.0); PLATELET COUNT (AUTO) 717 /CMM (150-450); RDW COEFFICIENT OF VARIATION 16.3 (11.5-15.0); RED BLOOD CELL COUNT(AUTO) 4.63 MIL/uL (4.5-6.0); WHITE BLOOD COUNT (AUTO) 11.6 K/uL (4.3-11.0)
[2016-10-22 08:00] VITALS: BP_SYST 128; BP_DIAS 73; BP_DIAS 93
[2016-10-22] MEDS: CHLORHEXIDINE GLUCONATE 15 ML UDC MM SCH ×2 (09:24→16:10)
[2016-10-22] MEDS: ASCORBIC ACID SYRUP 500 MG/5 ML UDC GT SCH (09:24)
[2016-10-22] MEDS: LACTOBACILLUS RHAMNOSUS GG 1 EACH CAP.SPRINK PO SCH ×2 (09:24→16:10)
[2016-10-22] MEDS: METOCLOPRAMIDE HCL 10 MG/10 ML UDC GT SCH ×3 (09:24→16:10)
[2016-10-22] MEDS: LINEZOLID 600 MG TABLET GT SCH (09:24)
[2016-10-22] MEDS: MULTIVITAMIN LIQ 5 ML UDC GT SCH (09:24)
[2016-10-22] MEDS: ATENOLOL 50 MG TABLET GT SCH (09:26)
[2016-10-22] MEDS: HYDROGEL DRESSING 90 GM TUBE TP SCH (09:28)
[2016-10-22] MEDS: Z GUARD REMEDY 2 OZ OINT TP SCH (09:28)
[2016-10-22] MEDS: ENOXAPARIN SODIUM 40 MG/0.4 ML DISP.SYRIN SQ SCH (09:28)
[2016-10-22 09:30] LABS: EOSINOPHILS % (MANUAL) 2 % (0-4); LYMPHOCYTES % (MANUAL) 17 % (16-48); MONOCYTES % (MANUAL) 3 % (0-11.0); NEUTROPHILS % (MANUAL) 78 (42-76); PLATELET ESTIMATE INCREASED
[2016-10-22] MEDS: POLYVINYL ALCOHOL 15 ML BOTTLE EACHEYE SCH ×2 (09:30→16:31)
[2016-10-22] MEDS: FIBERSOURCE HN 1,000 ML BOTTLE GT PRN (09:38)
[2016-10-22 11:29] LABS: CREATININE 0.2 mg/dL (0.6-1.3); MAGNESIUM 2.2 mg/dL (1.8-2.4)
[2016-10-22 12:00] VITALS: BP 105/71
--- NOTE | 2016-10-22 15:00 | NUR ---
RN NOTE: BED BATH, WOUND CARE RENDERED, TOLERATED WELL.
[2016-10-22 16:00] VITALS: BP 102/62
[2016-10-22] MEDS ORDERED: PIPERACILLIN /TAZOBACTAM 4.5 G in IV D5W 50 ML IV SCH (16:00)
[2016-10-22] MEDS ORDERED: SECONDARY IV SET 1 EA INFUS.SET MC ONE (17:48)
[2016-10-22] MEDS: PIPERACILLIN /TAZOBACTAM 4.5 G in IV D5W 50 ML IV SCH (18:08)
--- NOTE | 2016-10-22 19:17 | NUR ---
ONSITE CASE MANAGER: NO ACUTE DISTRESS NOTED THROUGHOUT SHIFT. TOLERATING CURRENT VENT SETTINGS; AIRWAY CLEARED OF SECRETIONS. TOLERATING TF WITH 10 CC RESIDUAL. FC DRAINING WELL TO GRAVITY. AFEBRILE. ST 105ON MONITOR. CARE ENDORSED TO PM RN FOR HARRY.
[2016-10-22 20:00] VITALS: BP 113/73
--- NOTE | 2016-10-22 20:00 | NUR ---
TELE NOTES RECEIVED PT ON VENT PER TRACH W/ FI02 40%,JLP=[id number]%.DOES NOT O[PEN EYES TO COMMANDS.EXTREMITIES FLACCID.RECEIVING FIBERSOURCE VIA GT AT 50 ML/HR.NO RESIDUAL OBTAINED.
[2016-10-22] MEDS: SULFAMETH/TRIMETH 800/160 MG 1 UDTAB TABLET PO SCH (21:15)
[2016-10-23] VITALS: BP 111/74
[2016-10-23] MEDS: PIPERACILLIN /TAZOBACTAM 4.5 G in IV D5W 50 ML IV SCH ×4 (00:27→17:39)
[2016-10-23] MEDS: IPRATROPIUM NEB FS 0.5 MG/2.5 ML AMPUL.NEB IH SCH ×4 (02:06→20:30)
[2016-10-23] MEDS: ALBUTEROL FS 2.5 MG/3 ML VIAL.NEB NEB SCH ×4 (02:06→20:30)
[2016-10-23] MEDS ORDERED: IV NS 0.9% 250 ML IV ONE (03:45)
[2016-10-23] MEDS: IV NS 0.9% 250 ML IV PRN (03:55)
[2016-10-23 04:00] VITALS: BP 108/34
--- NOTE | 2016-10-23 05:54 | NUR ---
END NOTES SUCTIONED INFREQUENTLY FOR SCANT YELLOW THIN TO THICK SECRETIONS.TRACH CARE DONE,ORAL CARE DONE.BED BATH GIVEN EARLIER.AFEBRILE.MONITOR SHOWS SINUS TACH W/OUT ECTOPICS.GOOD URINE OUTPUT.
--- NOTE | 2016-10-23 05:57 | NUR ---
END NOT Addendum: 10/23/16 at 0603 by MINI ZARATE RN END NOTES INSTEAD OF END NOT
[2016-10-23 07:36] LABS: EOSINOPHILS # (AUTO) 0.3 /CMM (0.0-0.7); EOSINOPHILS % (AUTO) 1.6 % (0.0-6.0); HEMATOCRIT 37 % (39-51); LYMPHOCYTES # (AUTO) 1.5 /CMM (0.8-4.8); MEAN CORPUSCULAR HEMOGLOBIN 27 PG (26.0-33.0); MEAN CORPUSCULAR HGB CONC 33 g/dl (31.0-36.0); MEAN CORPUSCULAR VOLUME 82 fL (80-96); MONOCYTES # (AUTO) 0.8 /CMM (0.1-1.30); MONOCYTES % (AUTO) 3.9 % (2.0-12.0); NEUTROPHILS # (AUTO) 16.8 /CMM (1.8-8.9); NEUTROPHILS % (AUTO) 86.5 % (43.0-81.0); PLATELET COUNT (AUTO) 661 /CMM (150-450); RDW COEFFICIENT OF VARIATION 16.7 (11.5-15.0); RED BLOOD CELL COUNT(AUTO) 4.49 MIL/uL (4.5-6.0); WHITE BLOOD COUNT (AUTO) 19.4 K/uL (4.3-11.0)
[2016-10-23 07:41] LABS: CALCIUM, SERUM 9.6 mg/dL (8.5-10.1); CREATININE 0.2 mg/dL (0.6-1.3); POTASSIUM 4.5 mmol/L (3.5-5.1)
[2016-10-23 08:00] VITALS: BP 107/41
--- NOTE | 2016-10-23 08:00 | NUR ---
RN GAIL; ASSESSMENT RECEIVED PT VENTED VIA TRACH SEE FLOW SHEET FOR VENT SETTINGS. PT IS OBTUNDED UNABLE TO FOLLOW COMMANDS OR TRACK WITH EYES. PT TOLERATING TUBE FEEDINGS. NO RESIDUALS NOTED. RENEE CATH INTACT DRAINING TO GRAVITY CLEAR YELLOW URINE WITH SOME SEDIMENTATIONS. NO ACUTE DISTRESS NOTED WILL CONTINUE TO MONITOR CLOSELY.
[2016-10-23] MEDS: MULTIVITAMIN LIQ 5 ML UDC GT SCH (08:18)
[2016-10-23] MEDS: LACTOBACILLUS RHAMNOSUS GG 1 EACH CAP.SPRINK PO SCH ×2 (08:18→17:39)
[2016-10-23] MEDS: CHLORHEXIDINE GLUCONATE 15 ML UDC MM SCH ×2 (08:18→17:39)
[2016-10-23] MEDS: METOCLOPRAMIDE HCL 10 MG/10 ML UDC GT SCH ×3 (08:18→17:39)
[2016-10-23] MEDS: ATENOLOL 50 MG TABLET GT SCH (08:18)
[2016-10-23] MEDS: SULFAMETH/TRIMETH 800/160 MG 1 UDTAB TABLET PO SCH (08:18)
[2016-10-23] MEDS: ASCORBIC ACID SYRUP 500 MG/5 ML UDC GT SCH (08:18)
[2016-10-23] MEDS: HYDROGEL DRESSING 90 GM TUBE TP SCH (08:20)
[2016-10-23] MEDS: Z GUARD REMEDY 2 OZ OINT TP SCH (08:20)
[2016-10-23] MEDS: POLYVINYL ALCOHOL 15 ML BOTTLE EACHEYE SCH ×2 (08:21→17:40)
[2016-10-23] MEDS: ENOXAPARIN SODIUM 40 MG/0.4 ML DISP.SYRIN SQ SCH (08:22)
[2016-10-23 12:00] VITALS: BP 100/61
[2016-10-23] MEDS: FIBERSOURCE HN 1,000 ML BOTTLE GT PRN (15:13)
[2016-10-23 16:00] VITALS: BP 115/70
--- NOTE | 2016-10-23 19:30 | NUR ---
RN INITIAL NOTES RECEIVED PT ASLEEP ON BED, OBTUNDED, OPENS EYES ONLY. FAMILY AT BEDSIDE. ON VENT, SHILEY 6, AC 14, TV 400, 40% FIO2, PEEP 5. CURRENTLY ST ON THE MONITOR, HR 110'S. RENEE CATH INTACT. ON GTUBE FEEDING OF FIBERSOURCE @ 50MLS/HR, NO RESIDUALS, TOLERATING WELL. LEFT UPPER ARM MIDLINE FLUSHED AND PATENT, NO S/S OF INFILTRATION/INFECTION, DRESSING CDI. BED LOW AND LOCKED, SIDERAILS UP, BED ALARM ON. WILL MONITOR
[2016-10-23 20:00] VITALS: BP 118/76
[2016-10-23] MEDS: METRONIDAZOLE 500 MG TABLET PO SCH (20:37)
--- NOTE | 2016-10-23 21:50 | NUR ---
PT RECEIVED TRACH WITH MARIA E 6 ON VENT. NO RESP DISTRESS NOTED. PT TOLERATING VENT SETTINGS. SX'D FOR SML AMT OF THICK WHITE SECRETIONS. VENT ALARMS SET AND AUDIBLE. AMBU BAG AT BEDSIDE. VENT PLUGGED INTO RED OUTLET. WILL CONTINUE TO MONITOR. Addendum: 10/23/16 at 2150 by JAVI NOLAN RT Amended: Links added.
[2016-10-24] VITALS: BP 112/65
[2016-10-24] MEDS: PIPERACILLIN /TAZOBACTAM 4.5 G in IV D5W 50 ML IV SCH ×5 (01:07→23:45)
[2016-10-24] MEDS: IPRATROPIUM NEB FS 0.5 MG/2.5 ML AMPUL.NEB IH SCH ×4 (01:35→19:50)
[2016-10-24] MEDS: ALBUTEROL FS 2.5 MG/3 ML VIAL.NEB NEB SCH ×4 (01:35→19:50)
[2016-10-24 04:00] VITALS: BP 110/68
[2016-10-24] MEDS: METRONIDAZOLE 500 MG TABLET PO SCH ×3 (05:01→21:09)
[2016-10-24] MEDS: ACETAMINOPHEN 650 MG/20.3 ML UDC GT PRN (06:27)
--- NOTE | 2016-10-24 06:30 | NUR ---
RN CLOSING NOTES PT REMAINS STABLE OF THE MOMENT. ALL DUE MEDS GIVEN, AM CARE PROVIDED. WILL ENDORSE CONTINUITY OF CARE TO AM RN
--- NOTE | 2016-10-24 07:00 | NUR ---
RN NOTES RECEIVED PT ON BED , OBTUNDED, OPENS EYES ONLY. VENT DEPENDENT, TRACH CARE DONE, SHILEY 6, AC 14, TV 400, 40% FIO2, PEEP 5. TOLERATING CURRENT SETTING WELL, ON TELE ST ON HR 120'S. RENEE CATH INTACT AND DRAINING TO GRAVITY , G TUBE FEEDING OF FIBERSOURCE @ 50MLS/HR TOLERATING WELL, NO RESIDUALS NOTED, LEFT UPPER ARM MIDLINE SITE CDI, NO S/S OF INFILTRATION/INFECTION, BED LOCKED AND IN LOW POSITION , SIDE RAILS UP x3 , BED ALARM ON. WILL CONTINUE TO MONITOR PT CLOSELY AND NOTIFY MD FOR ANY SINGFINCAT CHANGES
[2016-10-24 08:00] VITALS: BP 122/84
[2016-10-24] MEDS: CHLORHEXIDINE GLUCONATE 15 ML UDC MM SCH ×2 (08:02→16:32)
[2016-10-24] MEDS: ASCORBIC ACID SYRUP 500 MG/5 ML UDC GT SCH (08:02)
[2016-10-24] MEDS: ENOXAPARIN SODIUM 40 MG/0.4 ML DISP.SYRIN SQ SCH (08:03)
[2016-10-24] MEDS: ATENOLOL 50 MG TABLET GT SCH (08:08)
[2016-10-24] MEDS: METOCLOPRAMIDE HCL 10 MG/10 ML UDC GT SCH ×3 (08:11→16:32)
[2016-10-24] MEDS: MULTIVITAMIN LIQ 5 ML UDC GT SCH (08:11)
[2016-10-24] MEDS: LACTOBACILLUS RHAMNOSUS GG 1 EACH CAP.SPRINK PO SCH ×2 (08:12→16:32)
[2016-10-24] MEDS: HYDROGEL DRESSING 90 GM TUBE TP SCH (08:13)
[2016-10-24] MEDS: Z GUARD REMEDY 2 OZ OINT TP SCH (08:14)
[2016-10-24] MEDS: POLYVINYL ALCOHOL 15 ML BOTTLE EACHEYE SCH ×2 (09:28→16:33)
--- NOTE | 2016-10-24 10:54 | NUR ---
RN NOTES PT ENDORSE TO [facility] FOR CONTINUITY OF CARE .
[2016-10-24 12:00] VITALS: BP 100/66
--- NOTE | 2016-10-24 15:14 | NUR ---
RT WAS NOT ABLE TO GIVE TX DUE TO CODE BLUE FOR ANOTHER PATIENT. WILL GIVE NEXT SCHEDULED DOSE.
--- NOTE | 2016-10-24 15:19 | NUR ---
RN NOTES PT RECEIVED FROM [facility] RN IN STABLE CONDITION , CONTINUE TO MONITOR PT CLOSELY
[2016-10-24 16:00] VITALS: BP 107/68
[2016-10-24] MEDS: FIBERSOURCE HN 1,000 ML BOTTLE GT PRN (16:32)
--- NOTE | 2016-10-24 18:00 | NUR ---
RN NOTES PT STABLE TRACH CARE DONE, SUPPORTIVE FAMILY AT THE BEDSIDE, TOLERATING TF WELL, NO RESIDUAL NOTED, L UPPER ARM MIDLINE CDI, MEDICATED PER MD ORDER , ONE LOOSE STOOL NOTED ON THIS SHIFT. ID NOTIFIED , NO SIGNIFICANT CHANGES NOTED ON THIS SHIFT.
--- NOTE | 2016-10-24 19:30 | NUR ---
FUR SEWER: RECEIVED PT. OBTUNDED, OPENS EYES WITH DEEP PAIN STIMULI. ON MECH VENT VIA TRACH AND TOLERATING VENT SETTINGS ORDERED WT NO ACUTE DISTRESS. NO FACIAL GRIMACE NOTED. ST WT HR 118 ON TELE MONITOR. AFEBRILE. TOLERATING GTF WT 10ML RESIDUAL. F/C PATENT AND INTACT DRAINING YELLOW URINE. SAFETY PRECAUTION NOTED. WILL CONTINUE TO MONITOR.
[2016-10-24 20:00] VITALS: BP 112/71
[2016-10-24] MEDS: IV NS 0.9% 250 ML IV PRN (21:10)
[2016-10-24] MEDS ORDERED: IV SET PRIMARY PUMP SET 1 EA INFUS.SET MC ONE (21:19)
--- NOTE | 2016-10-24 22:45 | NUR ---
PT RECEIVED TRACH WITH MARIA E 6 ON VENT. NO RESP DISTRESS NOTED. PT TOLERATING VENT SETTINGS. SX'D FOR SML AMT OF THICK WHITE SECRETIONS. VENT ALARMS SET AND AUDIBLE. AMBU BAG AT BEDSIDE. VENT PLUGGED INTO RED OUTLET. WILL CONTINUE TO MONITOR. Addendum: 10/24/16 at 2245 by JAVI NOLAN RT Amended: Links added.
[2016-10-25] VITALS: BP 124/88
[2016-10-25] MEDS: IPRATROPIUM NEB FS 0.5 MG/2.5 ML AMPUL.NEB IH SCH ×4 (01:15→20:36)
[2016-10-25] MEDS: ALBUTEROL FS 2.5 MG/3 ML VIAL.NEB NEB SCH ×4 (01:15→19:30)
[2016-10-25 04:00] VITALS: BP 123/84
[2016-10-25] MEDS: METRONIDAZOLE 500 MG TABLET PO SCH ×3 (05:35→21:20)
[2016-10-25] MEDS: PIPERACILLIN /TAZOBACTAM 4.5 G in IV D5W 50 ML IV SCH ×2 (05:36→11:49)
--- NOTE | 2016-10-25 06:30 | NUR ---
VINEGAR MAKER: REMAINED ST ON TELE MONITOR WT HR IN THE 120s AND LOW 100s. AFEBRILE. NO ACUTE DISTRESS. TOLERATING GTF WT 20CC RESIDUAL. ALL DUE ATB THERAPY GIVEN ORDERED WT NO ADVERSE SIDE EFFECTS. ALL NEEDS MET.
[2016-10-25 07:10] LABS: BASOPHILS % (AUTO) 0.4 % (0.0-2.0); EOSINOPHILS # (AUTO) 0.1 /CMM (0.0-0.7); HEMATOCRIT 38 % (39-51); HEMOGLOBIN 11.9 g/dL (13.5-17.5); LYMPHOCYTES # (AUTO) 1.5 /CMM (0.8-4.8); LYMPHOCYTES % (AUTO) 11.1 % (20.0-44.0); MEAN CORPUSCULAR HEMOGLOBIN 26 PG (26.0-33.0); MEAN CORPUSCULAR HGB CONC 32 g/dl (31.0-36.0); MEAN CORPUSCULAR VOLUME 83 fL (80-96); MONOCYTES % (AUTO) 7.4 % (2.0-12.0); NEUTROPHILS # (AUTO) 10.9 /CMM (1.8-8.9); NEUTROPHILS % (AUTO) 80.1 % (43.0-81.0); PLATELET COUNT (AUTO) 519 /CMM (150-450); RDW COEFFICIENT OF VARIATION 17.1 (11.5-15.0); RED BLOOD CELL COUNT(AUTO) 4.54 MIL/uL (4.5-6.0); WHITE BLOOD COUNT (AUTO) 13.6 K/uL (4.3-11.0)
--- NOTE | 2016-10-25 07:30 | NUR ---
RN INITIAL NOTE PT RECEIVED IN BED. PT IS OBTUNDED, NON-VERBAL. NO S/S OF PAIN OR DISCOMFORT. RESPIRATIONS ARE EVEN AND UNLABORED. TRACH PT. FI02 40%. PT SINUS TACH ON TELE. F/C PATENT AND DRAINING TO GRAVITY. GTUBE FLUSHED AND PATENT. FIBERSOURCE RUNNING AT 50ML/HR. TOLERATING GT FEEDING WELL. LEFT UPPER MIDLINE FLUSHED, AND PATENT. DRESSING C/D/I. SAFETY MEASURES IMPLEMENTED. BED IN LOCKED POSITION, SIDE RAILS UP. CALL LIGHT WITHIN EASY REACH. WILL CONTINUE TO MONITOR.
--- NOTE | 2016-10-25 07:35 | NUR ---
RT PATIENT REC'D TRACHED ON [facility] VENT WITH SETTINGS SET PER MD TARIK KILGORE. VENT ALARMS CHECKED + AUDIBLE. TRACH SECURE + IN PROPER POSITION. SX'D WITH MOD AMT PALE SEMITHICK SECRETIONS. PATIENT APPEARS COMFORTABLE AND IN NO DISTRESS. AMBU BAG AT HOB. Addendum: 10/25/16 at 1356 by ROMIE RODRIGUEZ RT Amended: Links added.
[2016-10-25 07:54] LABS: CALCIUM, SERUM 9.4 mg/dL (8.5-10.1); CREATININE 0.3 mg/dL (0.6-1.3); MAGNESIUM 2.2 mg/dL (1.8-2.4); PHOSPHORUS 3.8 mg/dL (2.5-4.9); POTASSIUM 5.4 mmol/L (3.5-5.1)
[2016-10-25 08:00] VITALS: BP 91/59
[2016-10-25] MEDS: ATENOLOL 50 MG TABLET GT SCH (09:00)
[2016-10-25] MEDS: Z GUARD REMEDY 2 OZ OINT TP PRN (09:08)
[2016-10-25] MEDS: HYDROGEL DRESSING 90 GM TUBE TP SCH (09:09)
[2016-10-25] MEDS: POLYVINYL ALCOHOL 15 ML BOTTLE EACHEYE SCH ×2 (09:09→16:26)
[2016-10-25] MEDS: METOCLOPRAMIDE HCL 10 MG/10 ML UDC GT SCH ×3 (09:11→16:25)
[2016-10-25] MEDS: ASCORBIC ACID SYRUP 500 MG/5 ML UDC GT SCH (09:11)
[2016-10-25] MEDS: MULTIVITAMIN LIQ 5 ML UDC GT SCH (09:11)
[2016-10-25] MEDS: LACTOBACILLUS RHAMNOSUS GG 1 EACH CAP.SPRINK PO SCH ×2 (09:11→16:26)
[2016-10-25] MEDS: CHLORHEXIDINE GLUCONATE 15 ML UDC MM SCH ×2 (09:11→16:25)
[2016-10-25] MEDS: Z GUARD REMEDY 2 OZ OINT TP SCH (09:20)
[2016-10-25] MEDS: ENOXAPARIN SODIUM 40 MG/0.4 ML DISP.SYRIN SQ SCH (09:20)
[2016-10-25] MEDS: FIBERSOURCE HN 1,000 ML BOTTLE GT PRN (11:49)
[2016-10-25 12:00] VITALS: BP 114/72
[2016-10-25] MEDS: IBUPROFEN SUSP 100 MG/5 ML UDC GT PRN (12:04)
--- NOTE | 2016-10-25 13:32 | NUR ---
RN NOTE CALLED DR BURNS REGARDING LOW URINE OUTPUT
[2016-10-25 16:00] VITALS: BP 122/64
[2016-10-25] MEDS: ACETAMINOPHEN 650 MG/20.3 ML UDC GT PRN (16:25)
--- NOTE | 2016-10-25 19:06 | NUR ---
RN CLOSING NOTE PT RESTING IN BED COMFORTABLY, ALL MD ORDERS CARRIED OUT. PT KEPT CLEAN AND DRY. IV SITE C/D/I. ALL SAFETY MEASURES IN PLACE AT ALL TIMES. REPORT WILL BE GIVEN TO PM RN FOR HARRY.
--- NOTE | 2016-10-25 19:30 | NUR ---
BUSINESS PROCESS ANALYST: RECEIVED PT ST ON NEWSROOM INTERN WT HR IN THE 130s. AFEBRILE. REPOSITIONED FOR COMFORT. NOTED K=5.4 IN AM LABS WT NO TX AT THIS TIME. PAGED . WILL CONTINUE TO MONITOR.
[2016-10-25 20:00] VITALS: BP 119/78
[2016-10-25] MEDS ORDERED: SODIUM POLYSTYRENE SULFONATE 15 G/60 ML BOTTLE GT ONE (21:00)
[2016-10-25] MEDS ORDERED: ATENOLOL 50 MG TABLET GT ONE (21:00)
--- NOTE | 2016-10-25 21:00 | NUR ---
CLEANING CREW MEMBER: DR. ELENA CALLED BACK AND WAS NOTIFIED OF HR IN THE 130s SINCE DAY SHIFT, K=5.4, TENORMIN WAS HELD AT 0900 PER PARAMETER. BP AT 8PM = 119/78 AND HR REMAINED IN THE 130s. WT ORDER TO GIVE TENORMIN 50MG VIA GT X 1 AND KAYEXELATE 30GM X 1. NOTED AND CARRIED OUT. WILL CONTINUE TO MONITOR.
[2016-10-25] MEDS: CEFEPIME 1 GM in IV D5W 50 ML IV SCH (21:19)
[2016-10-25] MEDS: IV NS 0.9% 250 ML IV PRN (21:21)
--- NOTE | 2016-10-25 22:30 | NUR ---
MUSIC JOURNALIST: HR IMPROVE NOW LESS THAN 120s
[2016-10-26] VITALS (7 sets, daily range): BP systolic 104–127; BP diastolic 69–90
[2016-10-26] MEDS: IPRATROPIUM NEB FS 0.5 MG/2.5 ML AMPUL.NEB IH SCH ×4 (00:55→19:47)
[2016-10-26] MEDS: ALBUTEROL FS 2.5 MG/3 ML VIAL.NEB NEB SCH ×4 (00:55→19:47)
[2016-10-26] MEDS: METRONIDAZOLE 500 MG TABLET PO SCH ×3 (04:49→20:15)
--- NOTE | 2016-10-26 06:09 | NUR ---
UNIT DOSE ALBUTEROL RESP TX HELD DUE TO INCREASED HR. RN LISETTE AWARE
--- NOTE | 2016-10-26 06:30 | NUR ---
SANITATION TRUCK DRIVER: ON S/P KAYEXELATE 30 GM WT 3 LARGE AMT. OF SOFT TO LIQUID BROWN STOOLS. GOOD SKIN/LORI CARE RENDERED. ST WT HR IN THE 120s. NO OTHER HARRY DURING THE SHIFT. REMAINED AFEBRILE.
--- NOTE | 2016-10-26 07:20 | NUR ---
RN INITIAL NOTES: Rec'd pt on bed obtunded, w/ HOB elevated, not in any distress. On MV via trache w/ ff settings: Shiley 6 XLT, AC 14, TV 400, FiO2 40%, PEEP 5, saturating at 100%. On telemonitor, ST HR 123. On cont GT feeding, Fibersource at 50 cc/hr, patent, residual checked. Pt has patent & intact FC draining to adequate urine output. Has KALEB midline, TKO, patent, C/D/I, no signs of infection/ infiltration noted. Bed kept low & in locked position. Will turn & reposition, offload heels as per protocol. Will continue to monitor.
[2016-10-26 07:21] LABS: BASOPHILS % (AUTO) 0.2 % (0.0-2.0); EOSINOPHILS # (AUTO) 0.1 /CMM (0.0-0.7); EOSINOPHILS % (AUTO) 1.2 % (0.0-6.0); HEMATOCRIT 38 % (39-51); HEMOGLOBIN 12.2 g/dL (13.5-17.5); LYMPHOCYTES # (AUTO) 1.1 /CMM (0.8-4.8); LYMPHOCYTES % (AUTO) 15.1 % (20.0-44.0); MEAN CORPUSCULAR HEMOGLOBIN 26 PG (26.0-33.0); MEAN CORPUSCULAR HGB CONC 32 g/dl (31.0-36.0); MEAN CORPUSCULAR VOLUME 82 fL (80-96); MONOCYTES # (AUTO) 0.6 /CMM (0.1-1.30); MONOCYTES % (AUTO) 7.6 % (2.0-12.0); NEUTROPHILS # (AUTO) 5.6 /CMM (1.8-8.9); NEUTROPHILS % (AUTO) 75.9 % (43.0-81.0); PLATELET COUNT (AUTO) 564 /CMM (150-450); RDW COEFFICIENT OF VARIATION 16.4 (11.5-15.0); RED BLOOD CELL COUNT(AUTO) 4.62 MIL/uL (4.5-6.0); WHITE BLOOD COUNT (AUTO) 7.4 K/uL (4.3-11.0)
--- NOTE | 2016-10-26 07:38 | NUR ---
Received male davina pt on a mechanical vent. Pt davina is secure. Vent is plugged into a red outlet, alarms are set and audible. BVM is at bedside. Addendum: 10/26/16 at 0953 by VERENICE GOOD RT Amended: Links added.
[2016-10-26 08:04] LABS: CALCIUM, SERUM 8.9 mg/dL (8.5-10.1); CREATININE 0.2 mg/dL (0.6-1.3); MAGNESIUM 1.8 mg/dL (1.8-2.4); PHOSPHORUS 3.6 mg/dL (2.5-4.9); POTASSIUM 2.9 mmol/L (3.5-5.1)
[2016-10-26] MEDS: CEFEPIME 1 GM in IV D5W 50 ML IV SCH ×2 (08:53→20:15)
[2016-10-26] MEDS: CHLORHEXIDINE GLUCONATE 15 ML UDC MM SCH ×2 (08:53→17:25)
[2016-10-26] MEDS: ATENOLOL 50 MG TABLET GT SCH (08:54)
[2016-10-26] MEDS: METOCLOPRAMIDE HCL 10 MG/10 ML UDC GT SCH ×3 (08:54→17:25)
[2016-10-26] MEDS: ASCORBIC ACID SYRUP 500 MG/5 ML UDC GT SCH (08:54)
[2016-10-26] MEDS: MULTIVITAMIN LIQ 5 ML UDC GT SCH (08:54)
[2016-10-26] MEDS: LACTOBACILLUS RHAMNOSUS GG 1 EACH CAP.SPRINK PO SCH ×2 (08:54→17:25)
[2016-10-26] MEDS: Z GUARD REMEDY 2 OZ OINT TP SCH (08:55)
[2016-10-26] MEDS: HYDROGEL DRESSING 90 GM TUBE TP SCH (08:55)
[2016-10-26] MEDS: ENOXAPARIN SODIUM 40 MG/0.4 ML DISP.SYRIN SQ SCH (08:57)
[2016-10-26] MEDS: POLYVINYL ALCOHOL 15 ML BOTTLE EACHEYE SCH ×2 (08:59→17:26)
[2016-10-26] MEDS: POTASSIUM CHLORIDE 20 MEQ POWDER PACKET GT SCH ×3 (11:11→12:42)
[2016-10-26] MEDS: FIBERSOURCE HN 1,000 ML BOTTLE GT PRN (11:11)
--- NOTE | 2016-10-26 18:34 | NUR ---
RN CLOSING NOTES: No acute changes w/in shift. Pt saturated 100% w/ prescribed MV settings. Suctioned secretions. On telemonitor, ST w/ HR 114. GT feeding of Fibersource x 50 cc/hr, tolerated well, residual checked. Pt KALEB midline, TKO, patent & intact w/ no signs of infection/ infiltration noted. Low potassium level 2.9 replaced as ordered. Wound care done. Turned & repositioned, offloading of heels done. Will endorse to PM RN for HARRY.
[2016-10-26] MEDS: ACETAMINOPHEN 650 MG/20.3 ML UDC GT PRN (21:44)
[2016-10-26] MEDS: MORPHINE SULFATE INJ 2 MG/ML DISP.SYRIN IV PRN (21:45)
--- NOTE | 2016-10-26 21:54 | NUR ---
RN:TELE: PT HR INCREASING 130-140'S. PT MEDICATED FOR PAIN AND FEVER, DUE TO ABNORMAL VS. WILL CONTINUE TO MONITOR CLOSELY.
--- NOTE | 2016-10-26 22:10 | NUR ---
WBC trending down & afebrile, contineu IV abx, plan is to dc back to [facility] [phone] when discharge. Addendum: 10/26/16 at 2214 by ERICK NANCE RN Amended: Links added.
[2016-10-27] VITALS: BP 136/87
[2016-10-27] MEDS: IPRATROPIUM NEB FS 0.5 MG/2.5 ML AMPUL.NEB IH SCH ×4 (01:30→20:14)
[2016-10-27] MEDS: ALBUTEROL FS 2.5 MG/3 ML VIAL.NEB NEB SCH ×4 (01:30→20:14)
--- NOTE | 2016-10-27 01:57 | NUR ---
RT Q6 TX HELD DUE TPO INCREASED HR AND NURSE REQUEST. NO SOB OR DISTRESS NOTED AT THIS TIME.
[2016-10-27 04:00] VITALS: BP 122/92
[2016-10-27] MEDS: FIBERSOURCE HN 1,000 ML BOTTLE GT PRN (04:43)
[2016-10-27] MEDS: METRONIDAZOLE 500 MG TABLET PO SCH ×3 (04:43→21:00)
--- NOTE | 2016-10-27 07:30 | NUR ---
RN INITIAL NOTES PT IS IN BED, WITH HOB 35 DEGREES ELEVATED, NO SIGN AND SYMPTOMS OF DISTRESS NOTED, OBTUNDED, ON VENT, TRACHE SHILEY 6XLT, AC 14, VT 400, PEEP 5, SAT 100%, ON TELE, ST HR OF 118. ON GT FEEDING, RESIDUAL CHECKED FIBERSOURCE @ 50 ML/HR, PT RENEE IS PATENT AND DRAINING, PTS IV IS PATENT, NO SIGN OR SYMPTOMS OF INFECTION OR INFILTRATION. PT SKIN IS CDI AND PT TURNED Q2 HOURS, PATIENTS NEED ANTICIPATED. WILL CONTINUE TO MONITOR.
[2016-10-27 08:00] VITALS: BP 133/92
[2016-10-27 08:08] LABS: CALCIUM, SERUM 9.4 mg/dL (8.5-10.1); CREATININE 0.2 mg/dL (0.6-1.3)
[2016-10-27] MEDS: ASCORBIC ACID SYRUP 500 MG/5 ML UDC GT SCH (08:09)
[2016-10-27] MEDS: MULTIVITAMIN LIQ 5 ML UDC GT SCH (08:09)
[2016-10-27] MEDS: METOCLOPRAMIDE HCL 10 MG/10 ML UDC GT SCH ×3 (08:09→16:41)
[2016-10-27] MEDS: LACTOBACILLUS RHAMNOSUS GG 1 EACH CAP.SPRINK PO SCH ×2 (08:09→16:42)
[2016-10-27] MEDS: CHLORHEXIDINE GLUCONATE 15 ML UDC MM SCH ×2 (08:09→16:42)
[2016-10-27] MEDS: ATENOLOL 50 MG TABLET GT SCH (08:12)
[2016-10-27] MEDS: ENOXAPARIN SODIUM 40 MG/0.4 ML DISP.SYRIN SQ SCH (08:13)
[2016-10-27] MEDS: POLYVINYL ALCOHOL 15 ML BOTTLE EACHEYE SCH ×2 (08:14→16:47)
[2016-10-27] MEDS: Z GUARD REMEDY 2 OZ OINT TP SCH (08:15)
[2016-10-27] MEDS: HYDROGEL DRESSING 90 GM TUBE TP SCH (08:15)
[2016-10-27 12:00] VITALS: BP 91/61
[2016-10-27 16:00] VITALS: BP 114/80
--- NOTE | 2016-10-27 19:20 | NUR ---
RN CLOSING NOTES ENDORSED TO THE NIGHT NURSE, PT IS IN BED, NO ACUTE DISTRESS NOTED, PT KEPT CLEAN AND DRY, TURNED AND REPOSITIONED. ALL MD ORDER CARRIED OUT, ALL MEDS GIVEN, SAFETY MEASURES MAINTAINED, ALL NEEDS ANTICIPATED.
[2016-10-27 20:00] VITALS: BP 115/82
[2016-10-28] VITALS (9 sets, daily range): BP systolic 111–131; BP diastolic 73–93
[2016-10-28] MEDS: IV NS 0.9% 1,000 ML IV PRN ×2 (00:33→12:49)
[2016-10-28] MEDS: IPRATROPIUM NEB FS 0.5 MG/2.5 ML AMPUL.NEB IH SCH ×4 (01:45→16:23)
[2016-10-28] MEDS: ALBUTEROL FS 2.5 MG/3 ML VIAL.NEB NEB SCH ×4 (01:45→19:30)
[2016-10-28] MEDS: FIBERSOURCE HN 1,000 ML BOTTLE GT PRN (04:23)
[2016-10-28] MEDS: METRONIDAZOLE 500 MG TABLET PO SCH ×3 (04:23→20:07)
[2016-10-28 08:01] LABS: EOSINOPHILS # (AUTO) 0.2 /CMM (0.0-0.7); EOSINOPHILS % (AUTO) 1.3 % (0.0-6.0); HEMATOCRIT 36 % (39-51); HEMOGLOBIN 11.5 g/dL (13.5-17.5); LYMPHOCYTES # (AUTO) 1.3 /CMM (0.8-4.8); MEAN CORPUSCULAR HEMOGLOBIN 27 PG (26.0-33.0); MEAN CORPUSCULAR HGB CONC 32 g/dl (31.0-36.0); MEAN CORPUSCULAR VOLUME 82 fL (80-96); MONOCYTES # (AUTO) 0.9 /CMM (0.1-1.30); MONOCYTES % (AUTO) 5.6 % (2.0-12.0); NEUTROPHILS # (AUTO) 13.5 /CMM (1.8-8.9); NEUTROPHILS % (AUTO) 85.1 % (43.0-81.0); PLATELET COUNT (AUTO) 453 /CMM (150-450); RDW COEFFICIENT OF VARIATION 16.9 (11.5-15.0); RED BLOOD CELL COUNT(AUTO) 4.32 MIL/uL (4.5-6.0); WHITE BLOOD COUNT (AUTO) 15.8 K/uL (4.3-11.0)
--- NOTE | 2016-10-28 08:12 | NUR ---
RT PATIENT REC'D TRACHED ON [facility] VENT WITH SETTINGS SET PER MD TOLERATED WELL. VENT ALARMS CHECKED + AUDIBLE. VENT PLUGGED INTO RED OUTLET. PATIENT APPEARS COMFORTABLE AND NO DISTRESS. TRACH SECURE AND IN PROPER POSITION. PATIENT SUCTIONED WITH SMALL AMT PALE SEMITHICK SECRETIONS. BS DIM COARSE. AMBU BAG AT [facility]. CONT CURRENT PLAN OF CARE. Addendum: 10/28/16 at 1225 by ROMIE RODRIGUEZ RT Amended: Links added.
[2016-10-28] MEDS: METOCLOPRAMIDE HCL 10 MG/10 ML UDC GT SCH ×3 (08:47→16:22)
[2016-10-28] MEDS: ASCORBIC ACID SYRUP 500 MG/5 ML UDC GT SCH (08:47)
[2016-10-28] MEDS: LACTOBACILLUS RHAMNOSUS GG 1 EACH CAP.SPRINK PO SCH ×2 (08:47→16:24)
[2016-10-28] MEDS: MULTIVITAMIN LIQ 5 ML UDC GT SCH (08:47)
[2016-10-28] MEDS: CHLORHEXIDINE GLUCONATE 15 ML UDC MM SCH ×2 (08:47→16:22)
[2016-10-28] MEDS: ATENOLOL 50 MG TABLET GT SCH (08:48)
[2016-10-28] MEDS: ACETAMINOPHEN 650 MG/20.3 ML UDC GT PRN ×2 (08:48→16:22)
[2016-10-28] MEDS: Z GUARD REMEDY 2 OZ OINT TP SCH (08:49)
[2016-10-28] MEDS: HYDROGEL DRESSING 90 GM TUBE TP SCH (08:49)
[2016-10-28] MEDS: ENOXAPARIN SODIUM 40 MG/0.4 ML DISP.SYRIN SQ SCH (08:51)
[2016-10-28] MEDS: POLYVINYL ALCOHOL 15 ML BOTTLE EACHEYE SCH ×2 (08:53→16:23)
--- NOTE | 2016-10-28 09:08 | NUR ---
RECEIVED ASLEEP,NO ACUTE DISTRESS BUT TACHYCARDIC,NO ACUTE DISTRESS. Addendum: 10/28/16 at 1634 by LILIANA WOOTEN RN pt. w/ low urine output , made aware,continue ivf as ordered will continue to monitor output
[2016-10-28 10:06] LABS: CALCIUM, SERUM 9.3 mg/dL (8.5-10.1); CREATININE 0.2 mg/dL (0.6-1.3); MAGNESIUM 1.8 mg/dL (1.8-2.4); PHOSPHORUS 2.9 mg/dL (2.5-4.9); POTASSIUM 3.6 mmol/L (3.5-5.1)
--- NOTE | 2016-10-28 16:37 | NUR ---
pt. c/o grimacing prn tylenol given via gtube.
[2016-10-28] MEDS ORDERED: IV LR 1000 ML 1,000 ML IV ONE (18:00)
--- NOTE | 2016-10-28 20:00 | NUR ---
RN INITIAL NOTES RECEIVED PT OBTUNDED ON BED. ON VENT AC 14, TV 400, 40% FIO2, PEEP 5, SHILEY 6 XLT, SATURATING WELL. CURRENTLY SINUS RHYTHM ON THE MONITOR, HR 80-90'S. FAMILY IS AT BEDSIDE. RENEE CATH IS INTACT. ON GTUBE FEEDING OF FIBERSOURCE @ 50MLS/HR, NO RESIDUALS. LEFT UPPER ARM MIDLINE WITH NS @ 100MLS/HR, FLUSHED AND PATENT, NO S/S OF INFILTRATION/INFECTION, DRESSING CDI. BED LOW AND LOCKED, SIDERAIILS UP. WILL MONITOR
--- NOTE | 2016-10-28 20:34 | NUR ---
pt received on vent via trach, settings as charted ambu bag at bedside alarms set and audible. disconnect alarms checked suctioned a small amount of thin yellow secretions breath sounds equal bilateral coarse pt receiving albuterol and atrovent q6 Addendum: 10/28/16 at 2034 by DRAGAN HAN RT Amended: Links added.
--- NOTE | 2016-10-28 21:45 | NUR ---
RN NOTES CALLED ON-CALL KENTRELL TATE NP TO NOTIFY OF PATIENT RECTAL TEMP 94.6 DESPITE WARM BLANKETS COVERING PATIENT. LEA PRADO ORDERED HELIO HUGGER TO BE USED TO BRING PATIENT TEMP TO NORMAL RANGE
[2016-10-29] VITALS: BP 117/79
[2016-10-29] MEDS: FIBERSOURCE HN 1,000 ML BOTTLE GT PRN (01:43)
[2016-10-29] MEDS: IV NS 0.9% 1,000 ML IV PRN ×2 (01:44→12:49)
[2016-10-29] MEDS: ALBUTEROL FS 2.5 MG/3 ML VIAL.NEB NEB SCH ×3 (02:07→13:47)
[2016-10-29] MEDS: IPRATROPIUM NEB FS 0.5 MG/2.5 ML AMPUL.NEB IH SCH ×3 (02:07→13:47)
[2016-10-29 04:00] VITALS: BP 108/76
[2016-10-29] MEDS: METRONIDAZOLE 500 MG TABLET PO SCH ×2 (04:31→12:42)
--- NOTE | 2016-10-29 06:30 | NUR ---
RN CLOSING NOTES PT REMAINS STABLE OF THE MOMENT. ALL DUE MEDS GIVEN, AM CARE PROVIDED. WILL ENDORSE TO AM RN
--- NOTE | 2016-10-29 07:10 | NUR ---
RN INITIAL NOTES: Received patient on bed during rounds, obtunded, not responsive to painful stimuli, does not track, not able to make needs known needs anticipated and attended. With KALEB midline flushed with NS and patent SL on TKO. With Vent and trach setting are the following AC 14 TV 400 FIO2 40% Peep 5 saturating well at 99-100%. NPO maintained. With Gtube in placed, checked for patency and no residual noted, Fibersource at 50cc/hr tolerating well. HOB elevated, aspiration precaution observed. On Degroot catheter in placed, draining well to yellow urine, no sediments, no hematuria, no foul odor noted. NO SOB, No LOC, respirations are even and unlabored, no acute distress noted. Kept clean and dry. Provided safety and comfort measures. Bed low and locked position, fall precaution observed. Will turn and reposition, offload heels as per protocol. Suction secretions PRN. Possible dc to SNF. To continue to monitor accordingly.
--- NOTE | 2016-10-29 07:20 | NUR ---
RN NOTES: With IVF NS at 100cc/hr infusing well.
[2016-10-29 07:44] LABS: BASOPHILS % (AUTO) 0.1 % (0.0-2.0); EOSINOPHILS # (AUTO) 0.2 /CMM (0.0-0.7); EOSINOPHILS % (AUTO) 1.3 % (0.0-6.0); HEMATOCRIT 34 % (39-51); HEMOGLOBIN 10.8 g/dL (13.5-17.5); LYMPHOCYTES # (AUTO) 1.1 /CMM (0.8-4.8); LYMPHOCYTES % (AUTO) 9.3 % (20.0-44.0); MEAN CORPUSCULAR HEMOGLOBIN 26 PG (26.0-33.0); MEAN CORPUSCULAR HGB CONC 32 g/dl (31.0-36.0); MEAN CORPUSCULAR VOLUME 83 fL (80-96); MONOCYTES # (AUTO) 0.8 /CMM (0.1-1.30); MONOCYTES % (AUTO) 6.7 % (2.0-12.0); NEUTROPHILS # (AUTO) 9.7 /CMM (1.8-8.9); NEUTROPHILS % (AUTO) 82.6 % (43.0-81.0); PLATELET COUNT (AUTO) 411 /CMM (150-450); RDW COEFFICIENT OF VARIATION 16.7 (11.5-15.0); RED BLOOD CELL COUNT(AUTO) 4.09 MIL/uL (4.5-6.0); WHITE BLOOD COUNT (AUTO) 11.8 K/uL (4.3-11.0)
[2016-10-29 07:51] LABS: CALCIUM, SERUM 8.7 mg/dL (8.5-10.1); CREATININE 0.2 mg/dL (0.6-1.3); MAGNESIUM 1.6 mg/dL (1.8-2.4); PHOSPHORUS 3.1 mg/dL (2.5-4.9); POTASSIUM 4.2 mmol/L (3.5-5.1)
[2016-10-29 08:00] VITALS: BP 122/81
[2016-10-29] MEDS: ASCORBIC ACID SYRUP 500 MG/5 ML UDC GT SCH (08:15)
[2016-10-29] MEDS: MULTIVITAMIN LIQ 5 ML UDC GT SCH (08:15)
[2016-10-29] MEDS: LACTOBACILLUS RHAMNOSUS GG 1 EACH CAP.SPRINK PO SCH (08:16)
[2016-10-29] MEDS: CHLORHEXIDINE GLUCONATE 15 ML UDC MM SCH (08:16)
[2016-10-29] MEDS: METOCLOPRAMIDE HCL 10 MG/10 ML UDC GT SCH ×2 (08:16→12:42)
[2016-10-29] MEDS: ATENOLOL 50 MG TABLET GT SCH (08:16)
[2016-10-29] MEDS: ENOXAPARIN SODIUM 40 MG/0.4 ML DISP.SYRIN SQ SCH (08:17)
[2016-10-29] MEDS: POLYVINYL ALCOHOL 15 ML BOTTLE EACHEYE SCH (08:19)
[2016-10-29] MEDS: HYDROGEL DRESSING 90 GM TUBE TP SCH (08:20)
[2016-10-29] MEDS: Z GUARD REMEDY 2 OZ OINT TP SCH (08:20)
[2016-10-29 12:00] VITALS: BP 102/67
[2016-10-29] MEDS ORDERED: MAGNESIUM OXIDE 400 MG TABLET PO ONE (12:44)
[2016-10-29 16:00] VITALS: BP 97/67
--- NOTE | 2016-10-29 16:09 | NUR ---
RN NOTES: Seen and examined by Dr. Bar with orders noted and carried out. For dc today to [facility], Gunjan mother informed of transfer.
--- NOTE | 2016-10-29 16:44 | NUR ---
CHACHO NOTES: Referred to JOHAN Stanford to continue x7more days, noted and carried out. Addendum: 10/29/16 at 1653 by LAZARUS CLARKE RN Flagyl x7more days.
--- NOTE | 2016-10-29 16:51 | NUR ---
RN NOTES: Report to Thony lenz given to CHACHO Oconnor, all queries answered.
--- NOTE | 2016-10-29 17:18 | NUR ---
RN NOTES: As per Dr. Bar to continue all medication to [facility]di dc Narcotics, noted and carried out. Left the unit at this time in stable condition accompanied by EMT and RT, all dc paper forms given to EMT.
== END 2016-10-29 17:20 | DRG 130 ==
LOC: ER 00:57 → TELE1 03:05 → ICU 04:00 → TELE-TD 17:24 → TELE1 10-16 11:18
PROVIDERS: ADMIT Nurse Practitioner Acute Care; ATTEND Nurse Practitioner Acute Care
PROC: 5A1955Z Respiratory Ventilation, Greater than 96 Consecutive Hours (ICD-10-PCS; principal; 2016-10-15)
PROC: 05H633Z Insertion of Infusion Device into Left Subclavian Vein, Percutaneous Approach (ICD-10-PCS; principal; 2016-10-15)
DX: J95.851 Ventilator associated pneumonia (principal); J69.0 Pneumonitis due to inhalation of food and vomit; A41.9 Sepsis, unspecified organism; G93.41 Metabolic encephalopathy; R53.2 Functional quadriplegia; G12.21 Amyotrophic lateral sclerosis; L89.309 Pressure ulcer of unspecified buttock, unspecified stage; J96.11 Chronic respiratory failure with hypoxia; Z99.11 Dependence on respirator [ventilator] status; J44.0 Chronic obstructive pulmonary disease with (acute) lower respiratory infection; M21.372 Foot drop, left foot; M21.371 Foot drop, right foot; B96.5 Pseudomonas (aeruginosa) (mallei) (pseudomallei) as the cause of diseases classified elsewhere; B96.4 Proteus (mirabilis) (morganii) as the cause of diseases classified elsewhere; K21.9 Gastro-esophageal reflux disease without esophagitis; L03.113 Cellulitis of right upper limb; Y84.8 Other medical procedures as the cause of abnormal reaction of the patient, or of later complication, without mention of misadventure at the time of the procedure; Z93.0 Tracheostomy status; Y92.89 Other specified places as the place of occurrence of the external cause; Z93.1 Gastrostomy status; N39.0 Urinary tract infection, site not specified; F03.90 Unspecified dementia, unspecified severity, without behavioral disturbance, psychotic disturbance, mood disturbance, and anxiety; E87.6 Hypokalemia; D63.8 Anemia in other chronic diseases classified elsewhere; Z79.01 Long term (current) use of anticoagulants; R13.19 Other dysphagia; D75.89 Other specified diseases of blood and blood-forming organs; J98.11 Atelectasis; Z87.442 Personal history of urinary calculi; Z88.1 Allergy status to other antibiotic agents
CPT/HCPCS: 31720; 36415; 36600; 71010-TC; 74000-TC; 80048-TC; 80076-TC; 81000-TC; 82803-TC; 82962-TC; 83605-TC; 83735-TC; 84100-TC; 85025-TC; 85730-TC; 87040-TC; 87070-TC; 87081-TC; 87086-TC; 87186-TC; 94002-TC; 94003-TC; 94640-TC; 94760-TC; 99082-TC; A4216; A4606; A6248; J0692; J1650; J1956; J2020; J2185; J2270; J2543; J7030; J7050; J7060; J7120; J8597; Q9963; Z7610

== ENCOUNTER 2016-12-17 20:53 | Inpatient (IN) | payer MEDICAID ==
[~2016-12-17] VITALS: Ht 157.5 cm; Wt 51.7 kg
--- NOTE | 2016-12-17 20:55 | NUR ---
26 YO MALE BB RA FROM SNF. PT IS ALERT X 0, NON VERBAL. PT DS TO ER BED 5. PER EMS, SNF CALLED EMS FOR HYPOTENSION. PT IS CHRONIC G TUBE/ VENT DEPENDENT; PORTEX 7.0, AC 14, TV 400, PEEP 5.0, FIO2 30%. PT ERCTAL TEMP IS NOTED AT 90.8. PT GOWNED, PLACED ONC ARDIAC MONITOR. WARM BLANKETS PLACED ON PT. NOTED HYPOTENSION 93/45. 20G RIGHT FOOT IV STARTED, BLOOD SAMPLE OBTAINED AND SENT TO LAB. AWAITING ORDERS FROM PROVIDER, WILL CONTINUE TO SEBASTIEN.
--- NOTE | 2016-12-17 21:00 | NUR ---
MD BAIN AT BED SIDE FOR EVAL
[2016-12-17 21:12] VITALS: BP 97/69
--- NOTE | 2016-12-17 21:15 | NUR ---
MEDICATED PT ORDERED
--- NOTE | 2016-12-17 21:15 | NUR ---
RT NOTE PT PLACED ON VENTILATOR ON SETTINGS ENDORSED. AC 14 400 30% +5. PT TRACH SIZE PORTEX 7 CUFFED. CUFF INFLATED. VENT ALARMS SET PER PROTOCOL AND AUDIBLE. VENT PLUGGED IN TO RED OUTLET. AMBU BAG AT BEDSIDE. CLEAR BREATH SOUNDS UPON AUSCULTATION. MODERATE THIN YELLOW SECRETIONS FOUND UPON SUCTION. NO DISTRESS NOTED. WILL CONTINUE TO MONITOR. Addendum: 12/17/16 at 2119 by ANGELIA NAIK RT Amended: Links added.
[2016-12-17] MEDS ORDERED: IV NS 0.9% 1,000 ML ONE ×4 (21:22→23:41)
[2016-12-17] MEDS ORDERED: IV SET PRIMARY PUMP SET 1 EA INFUS.SET MC ONE ×3 (21:22→22:32)
[2016-12-17 21:28] LABS: BASOPHILS % (AUTO) 0.3 % (0.0-2.0); EOSINOPHILS % (AUTO) 0.3 % (0.0-6.0); HEMATOCRIT 31 % (39-51); HEMOGLOBIN 10.4 g/dL (13.5-17.5); LYMPHOCYTES # (AUTO) 0.6 /CMM (0.8-4.8); LYMPHOCYTES % (AUTO) 4.1 % (20.0-44.0); MEAN CORPUSCULAR HEMOGLOBIN 27 PG (26.0-33.0); MEAN CORPUSCULAR HGB CONC 33 g/dl (31.0-36.0); MEAN CORPUSCULAR VOLUME 82 fL (80-96); MONOCYTES # (AUTO) 0.2 /CMM (0.1-1.30); MONOCYTES % (AUTO) 1.1 % (2.0-12.0); NEUTROPHILS # (AUTO) 13.7 /CMM (1.8-8.9); NEUTROPHILS % (AUTO) 94.2 % (43.0-81.0); PLATELET COUNT (AUTO) 199 /CMM (150-450); RDW COEFFICIENT OF VARIATION 17.7 (11.5-15.0); RED BLOOD CELL COUNT(AUTO) 3.84 MIL/uL (4.5-6.0); WHITE BLOOD COUNT (AUTO) 14.5 K/uL (4.3-11.0)
--- NOTE | 2016-12-17 21:29 | NUR ---
RADILOGY AT BED SIDE FOR X RAY
[2016-12-17] MEDS ORDERED: IV NS 0.9% 1,000 ML BAG IV ONE ×3 (21:30→22:30)
[2016-12-17 21:40] LABS: INR 1.12 (0.87-1.13); PROTHROMBIN TIME 11.7 SECS (9.5-12.7)
[2016-12-17 21:43] LABS: CALCIUM, SERUM 9.7 mg/dL (8.5-10.1); CARBON DIOXIDE 21 mmol/L (21-32); CHLORIDE 105 mmol/L (98-107); CREATININE 0.2 mg/dL (0.6-1.3); GLUCOSE 72 mg/dL (74-106); POTASSIUM 3.3 mmol/L (3.5-5.1); SODIUM SERUM 138 mmol/L (136-145); UREA NITROGEN, BLOOD 22 mg/dL (7-18)
[2016-12-17 21:45] LABS: TROPONIN I < 0.017 ng/mL (0.00-0.056)
[2016-12-17 21:48] LABS: ALANINE AMINOTRANSFERASE 71 U/L (12-78); ALBUMIN 2.7 g/dL (3.4-5.0); ALKALINE PHOSPHATASE 257 U/L (46-116); ASPARTATE AMINOTRANSFERASE 59 U/L (15-37); BILIRUBIN,DIRECT 0.7 mg/dL (0.0-0.2); BILIRUBIN,TOTAL 1.3 mg/dL (0.2-1.0); TOTAL PROTEIN, SERUM 8.6 g/dL (6.4-8.2)
[2016-12-17 21:55] LABS: APPEARANCE,URINE CLOUDY (CLEAR); BILIRUBIN,URINE 1+ (NEGATIVE); BLOOD, URINE 1+ Ery/uL (NEGATIVE); COLOR,URINE YELLOW (YELLOW); KETONES,URINE NEGATIVE (NEGATIVE); LEUKOCYTE ESTERASE ,URINE 3+ (NEGATIVE); NITRITE, URINE POSITIVE (NEGATIVE); PROTEIN,URINE 2+ mg/dl (NEGATIVE); UGLUCOSE NEGATIVE (NEGATIVE)
[2016-12-17 21:59] LABS: BACTERIA,URINE Many /HPF (None Seen); SQUAMOUS EPITHELIAL CELL,UR Rare /HPF (None Seen); WBC,URINE 21-50 /HPF (0-3)
--- NOTE | 2016-12-17 22:09 | NUR ---
PT BP 85/60, NOTIFIED. ADMIN 1000ML NS PER VERBAL ORDER MD BEACH
--- NOTE | 2016-12-17 22:23 | NUR ---
PAGED DR MARA DAMON
[2016-12-17] MEDS ORDERED: LEVOFLOXACIN 750 MG /D5W 150ML PIGGYBACK IV ONE (22:30)
[2016-12-17] MEDS ORDERED: AZTREONAM 1 G in IV NS 0.9% 100 ML IV ONE (22:30)
[2016-12-17] MEDS ORDERED: AZTREONAM 1 G VIAL ONE (22:32)
[2016-12-17] MEDS ORDERED: IV NS 0.9% 100 ML IV ONE (22:32)
[2016-12-17] MEDS ORDERED: FIBERSOURCE HN 1,000 ML BOTTLE GT PRN (23:00)
[2016-12-17] MEDS ORDERED: BISACODYL SUPP (10 MG) 10 MG/SUPP.RECT SUPP.RECT RC PRN (23:00)
[2016-12-17] MEDS ORDERED: ONDANSETRON HCL/PF 4 MG/2 ML VIAL IVP PRN (23:00)
[2016-12-17] MEDS ORDERED: NA PHOS,M-B/NA PHOS,DI-BA 1 EA ENEMA RC PRN (23:00)
[2016-12-17] MEDS ORDERED: ACETAMINOPHEN 325 MG TABLET PO PRN (23:00)
[2016-12-17] MEDS ORDERED: MORPHINE SULFATE INJ 2 MG/ML DISP.SYRIN IV PRN (23:00)
--- NOTE | 2016-12-17 23:05 | NUR ---
REPORT GIVEN TO HERNAN FLOR FOR HARRY
--- NOTE | 2016-12-17 23:15 | NUR ---
ICU ADMISSION TO ROOM 258: RECEIVED PT VIA GURNEY FROM ER. PT OBTUNDED AND DOES NOT RESPOND TO PAIN .PUPILS EQUAL BUT SLUGGISH . PT TRACH PORTEX 7 CONNECTED TO VENT AT FOLLOWING SETTINGS: AC 14 ,TV 400, FIO2 30%, PEEP 5 . O2 SAT 88%. SUCTIONED PT AND HOB ELEVATED. FIO2 TITRATED UP TO 50%. GTUBE INTACT AND PATENT. FC INTACT AND PATENT. CLOUDY YELLOW URINE NOTED. SKIN INTACT BUT SACRUM NOTED TO BE RED AND HAS AN OLD SCAR. PICTURE TAKEN AND PLACED IN CHART. R FOOT AND L WRIST IV ACCESS INTACT AND PATENT. DR MARA DAMON AT BEDSIDE . ASSESSED PT AND GAVE ORDER FOR VASOPRESSOR AND CENTRAL LINE . BED BATH GIVEN AND TOLERATED WELL. WILL CONT TO MONITOR FOR ANY CHANGES IN CONDITION.
--- NOTE | 2016-12-17 23:28 | NUR ---
TRANSPORTED PT TO ICU BED WITHOUT INCIDENT
[2016-12-17 23:30] VITALS: BP 88/17
[2016-12-17] MEDS ORDERED: SECONDARY IV SET 1 EA INFUS.SET MC ONE (23:42)
[2016-12-17] MEDS: IV NS 0.9% 1,000 ML IV PRN (23:47)
[2016-12-17] MEDS ORDERED: LINEZOLID RTU BAG 300 ML IV ONE (23:58)
[2016-12-17] MEDS ORDERED: MEROPENEM 1 G VIAL IV ONE (23:58)
[2016-12-17] MEDS ORDERED: LEVOFLOXACIN 750 MG /D5W 150ML 150 ML IV ONE (23:59)
[2016-12-18] VITALS (79 sets, daily range): BP systolic 71–121; BP diastolic 43–72
--- NOTE | 2016-12-18 | NUR ---
TOE FORMER: CALLED [facility] FOR CENTRAL LINE PLACEMENT. PER [facility] ,NO ONE IS AVAILABLE AT THIS TIME FOR CENTRAL LINE INSERTION AND IT WILL HAVE TO BE DONE BY ER MD. CALLED ER , PER ER NURSE HERNESTO CHANG IS NOT AVAILABLE AT THIS TIME TO INSERT CENTRAL LINE. CHARGE NURSE SULMA INSERTED PERIPHERAL IV IN EJ FOR NOW.
[2016-12-18] MEDS: MEROPENEM 1 G in IV NS 0.9% 100 ML IV SCH ×4 (00:19→20:08)
[2016-12-18] MEDS ORDERED: IV NS 0.9% 100 ML IV ONE ×2 (00:20→04:16)
[2016-12-18] MEDS ORDERED: IV D5W 500 ML IV ONE (00:21)
[2016-12-18] MEDS ORDERED: IV SET PRIMARY PUMP SET 1 EA INFUS.SET MC ONE ×3 (00:21→08:49)
[2016-12-18] MEDS ORDERED: NOREPINEPHRINE 4 MG/4 ML AMPUL IV ONE (00:21)
[2016-12-18] MEDS: LINEZOLID RTU BAG 600 MG in PREMIX 1 EA IV SCH ×3 (00:21→20:48)
--- NOTE | 2016-12-18 00:30 | NUR ---
CLOSING COORDINATOR : MOTHER AT BEDSIDE . UPDATED WITH CURRENT CONDITION. VERIFIED CODE STATUS WITH MOTHER. MOTHER DOES NOT WANT DEFIBRILLATION DONE DURING CODE BUT CHEST COMPRESSIONS AND MEDICATIONS ARE OKAY. CHARGE NURSE AND DR MARA DAMON AWARE AND ORDER PLACED IN CHART.
[2016-12-18] MEDS: NOREPINEPHRINE 8 MG in IV D5W 500 ML IV PRN ×2 (00:49→10:18)
[2016-12-18] MEDS: ALBUTEROL FS 2.5 MG/0.5 ML VIAL.NEB NEB SCH ×4 (01:02→19:48)
[2016-12-18] MEDS: IPRATROPIUM NEB FS 0.5 MG/2.5 ML AMPUL.NEB IH SCH ×4 (01:02→19:48)
[2016-12-18] MEDS ORDERED: FIBERSOURCE HN 1,000 ML BOTTLE ONE (02:48)
--- NOTE | 2016-12-18 04:00 | NUR ---
ENVIRONMENTAL COORDINATOR :TURNED LEVOPHED OFF . BP AND MAP WNL .
[2016-12-18 04:49] LABS: BASOPHILS % (AUTO) 0.3 % (0.0-2.0); EOSINOPHILS % (AUTO) 0.1 % (0.0-6.0); HEMATOCRIT 30 % (39-51); HEMOGLOBIN 9.6 g/dL (13.5-17.5); LYMPHOCYTES # (AUTO) 0.4 /CMM (0.8-4.8); LYMPHOCYTES % (AUTO) 4.2 % (20.0-44.0); MEAN CORPUSCULAR HEMOGLOBIN 26 PG (26.0-33.0); MEAN CORPUSCULAR HGB CONC 32 g/dl (31.0-36.0); MEAN CORPUSCULAR VOLUME 82 fL (80-96); MONOCYTES # (AUTO) 0.2 /CMM (0.1-1.30); MONOCYTES % (AUTO) 1.8 % (2.0-12.0); NEUTROPHILS # (AUTO) 9.4 /CMM (1.8-8.9); NEUTROPHILS % (AUTO) 93.6 % (43.0-81.0); PLATELET COUNT (AUTO) 140 /CMM (150-450); RDW COEFFICIENT OF VARIATION 19.1 (11.5-15.0); RED BLOOD CELL COUNT(AUTO) 3.66 MIL/uL (4.5-6.0)
[2016-12-18 05:02] LABS: CALCIUM, SERUM 8.4 mg/dL (8.5-10.1); CREATININE 0.3 mg/dL (0.6-1.3); MAGNESIUM 1.7 mg/dL (1.8-2.4); PHOSPHORUS 4.2 mg/dL (2.5-4.9); POTASSIUM 3.2 mmol/L (3.5-5.1)
[2016-12-18 05:10] LABS: THYROID STIMULATING HORMONE 2.836 uIU/mL (0.358-3.74)
--- NOTE | 2016-12-18 07:17 | NUR ---
METEOROLOGY TEACHER: NO CHANGES NOTED . ENDORSED CARE TO AM NURSE Addendum: 12/18/16 at 0721 by NOEL ASIF RN ALL IVS INTACT AND PATENT , GOOD BLOOD RETURN NOTED. BEDSIDE REPORT DONE.
--- NOTE | 2016-12-18 07:22 | NUR ---
INITIAL ITINERANT TEACHER ASSISTANT NOTE RCVD PT WITH EYES CLOSED, NON-VERBAL, UNABLE TO FOLLOW ANY COMMANDS, UNABLE TO RESPOND TO PAINFUL STIMULI. EYES APPEAR RED. PUPILS EQUAL BUT SLUGGISH. TOLERATING ORDERED VENT SETTINGS. TUBE FEEDING HELD 150ML GASTRIC RESIDUAL OBTAINED. HOB ELEVATED. RENEE DRAINING CLOUDY, YELLOW URINE. IV SITES C/D/I/PATENT. NO S/O INFILTRATION OR PHLEBITIS OBSERVED. BED IN LOW AND LOCKED POSITION. CALL LIGHT WITHIN REACH. PT'S TEMP UPON INITIAL ASSESSMENT 93.3 RECTALLY. BEAR HUGGER BLANKET WAS PLACED OVER PT, RECTAL PROBE IN PLACE FOR CONTINUOUS TEMP MONITORING. AVANI NICHOLE RN INFORMED.
[2016-12-18] MEDS ORDERED: FIBERSOURCE HN 1,000 ML BOTTLE GT PRN (08:00)
[2016-12-18] MEDS ORDERED: SECONDARY IV SET 1 EA INFUS.SET MC ONE ×3 (08:13→13:13)
[2016-12-18] MEDS: Magnesium 1GM/D5W 100ML PREMIX 100 ML IV SCH ×2 (08:21→10:48)
[2016-12-18] MEDS: CHLORHEXIDINE GLUCONATE 15 ML UDC MM SCH ×2 (08:22→16:05)
[2016-12-18] MEDS: MULTIVITAMINS W-MINERALS 1 TAB TABLET PO SCH (08:22)
[2016-12-18] MEDS: DOCUSATE SODIUM LIQ 100 MG/10 ML UDC GT SCH ×2 (08:22→16:05)
[2016-12-18] MEDS: PANTOPRAZOLE 40 MG VIAL IV SCH (08:22)
[2016-12-18] MEDS: ACIDOPHILUS/BULGARICUS 1 EACH TAB.CHEW GT SCH ×3 (08:22→16:05)
[2016-12-18] MEDS: IV NS 0.9% 1,000 ML IV PRN ×2 (08:22→20:11)
[2016-12-18] MEDS: MUPIROCIN OINT 2% 22 GM TUBE SCH ×2 (08:53→20:09)
[2016-12-18] MEDS ORDERED: METOCLOPRAMIDE HCL 10 MG/10 ML UDC GT SCH (09:00)
[2016-12-18] MEDS ORDERED: IV NS 0.9% 1,000 ML BAG IV ONE (09:30)
--- NOTE | 2016-12-18 09:33 | NUR ---
JOB COST ESTIMATOR NOTE DR. WREN AT PT'S BEDSIDE HE WAS INFORMED OF PT'S DECREASED BP, PT STARTED ON LEVOPHED MAINTAINING SBP > 90 AT THIS TIME. RCVD ORDER TO GIVE 1L NS BOLUS AND DECREASE PEEP TO 0. RT CONTACTED FOR VENT CHANGES. ORDERS PLACED AND ACKNOWLEDGED. WILL CONTINUE TO MONITOR.
[2016-12-18] MEDS: ENOXAPARIN SODIUM 40 MG/0.4 ML DISP.SYRIN SQ SCH (11:37)
[2016-12-18] MEDS: POTASSIUM CL. PREMIX PERIPHER. 50 ML IV SCH ×2 (11:38→13:06)
--- NOTE | 2016-12-18 12:30 | NUR ---
CONTINUOUS PILLOWCASE CUTTER NOTE PAULO DISCONTINUED PT'S SBP >110. WILL CONTINUE TO MONITOR. Addendum: 12/18/16 at 1911 by HU JOHNSON RN KYLE MCDONALD DISCONTINUED TEMP OVER 99 F. WILL CONTINUE TO MONITOR.
[2016-12-18] MEDS ORDERED: IV NS 0.9% 250 ML IV ONE (13:13)
[2016-12-18] MEDS: POLYVINYL ALCOHOL 15 ML BOTTLE EACHEYE PRN (13:20)
[2016-12-18] MEDS ORDERED: ACETAMINOPHEN 650 MG/20 ML UDC- FOR SA PATIENTS ONLY GT PRN (13:30)
[2016-12-18] MEDS: ACETAMINOPHEN 650 MG/20.3 ML UDC NG PRN (13:50)
--- NOTE | 2016-12-18 16:27 | NUR ---
BALE PILER NOTE JOHAN ROJAS INFORMED OF PT'S HIGH RESIDUALS THROUGHOUT THE DAY. HE RECOMMENDED TO DECREASE THE RATE OF FEEDING TO 20ML/HR FOR NOW. ORDER ENTERED AND ACKNOWLEDGED. WILL CONTINUE MONITORING.
[2016-12-18 16:55] LABS: ABG BASE EXCESS -7.9 mmol/L; ABG OXYGEN SATURATION 95.9 % (92.0-98.5); ABG PCO2 54.6 mmHg (35.0-45.0); ABG PH 7.187 (7.350-7.450); ABG PO2 98.9 mmHg (75.0-100.0); AaDO2 196.2 mmHg; COHb 0.4 % (0.5-1.5); MetHb 0.8 % (0.0-1.5); O2Hb 94.7 % (94.0-97.0); SITE, ABG Right Radial; VT, ABG 400 mL
--- NOTE | 2016-12-18 17:30 | NUR ---
NETWORK OPERATIONS PROJECT MANAGER NOTE LEVO RESTARTED SBP 83 WILL CONTINUE TO MONITOR.
--- NOTE | 2016-12-18 19:07 | NUR ---
HAND BULLDOZER NOTE NO NEURO CHANGES IN PT'S CONDITION, SR AT THIS TIME. VENT SETTINGS ADJUSTED AFTER ABG RESULTS. RENEE CHANGED, DATED AND DRAINING. SASKIA PICC AND LEFT WRIST #22 C/D/I/PATENT. NO S/O INFILTRATION OR PHLEBITIS OBSERVED. TUBE FEEDING RATE DECREASED DUE TO HIGH RESIDUALS. HOGSHEAD COOPER RN INFORMED. PT'S CARE ENDORSED FOR CONTINUATION OF CARE. PT'S MOTHER AT BEDSIDE UPDATED ON PT'S CONDITION.
--- NOTE | 2016-12-18 20:44 | NUR ---
PT RECEIVED TRACHED PTX 7 ON VENT. NO RESP DISTRESS. PT TOLERATING VENT SETTINGS. SX'D FOR MOD AMT OF THIN WHITE SECRETIONS. VENT ALARMS SET AND AUDIBLE. AMBU BAG AT BEDSIDE. WILL CONTINUE TO MONITOR. Addendum: 12/18/16 at 2044 by JAVI NOLAN RT Amended: Links added.
[2016-12-19] VITALS (80 sets, daily range): BP systolic 85–136; BP diastolic 40–74
--- NOTE | 2016-12-19 | NUR ---
RADIO PRESENTER: KATE TURNED OFF . WILL CONT TO MONITOR BP THROUGHOUT THE SHIFT.
[2016-12-19] MEDS: ALBUTEROL FS 2.5 MG/0.5 ML VIAL.NEB NEB SCH ×4 (01:18→19:38)
[2016-12-19] MEDS: IPRATROPIUM NEB FS 0.5 MG/2.5 ML AMPUL.NEB IH SCH ×4 (01:18→19:38)
[2016-12-19] MEDS: FIBERSOURCE HN 1,000 ML BOTTLE GT PRN ×2 (03:24→20:02)
[2016-12-19] MEDS: IV NS 0.9% 1,000 ML IV PRN (03:26)
--- NOTE | 2016-12-19 04:00 | NUR ---
SIDE SAWYER:PT TOLERATED BED BATH WELL. NO BM . COPIOUS AMOUNTS OF ORAL SECRETIONS SUCTIONED. RECTAL THERMOMETER REMOVED. TEMP WNL AND NOT NEEDED AT THIS TIME. SACRAL AREA STILL HAS REDNESS BUT IS INTACT. NO CHANGES NOTED TO SKIN
[2016-12-19 04:33] LABS: BASOPHILS % (AUTO) 0.3 % (0.0-2.0); EOSINOPHILS % (AUTO) 0.5 % (0.0-6.0); HEMATOCRIT 24 % (39-51); HEMOGLOBIN 7.9 g/dL (13.5-17.5); LYMPHOCYTES # (AUTO) 0.7 /CMM (0.8-4.8); LYMPHOCYTES % (AUTO) 13.3 % (20.0-44.0); MEAN CORPUSCULAR HEMOGLOBIN 27 PG (26.0-33.0); MEAN CORPUSCULAR HGB CONC 33 g/dl (31.0-36.0); MEAN CORPUSCULAR VOLUME 83 fL (80-96); MONOCYTES # (AUTO) 0.4 /CMM (0.1-1.30); MONOCYTES % (AUTO) 9.1 % (2.0-12.0); NEUTROPHILS # (AUTO) 3.8 /CMM (1.8-8.9); NEUTROPHILS % (AUTO) 76.8 % (43.0-81.0); PLATELET COUNT (AUTO) 160 /CMM (150-450); RED BLOOD CELL COUNT(AUTO) 2.94 MIL/uL (4.5-6.0); WHITE BLOOD COUNT (AUTO) 4.9 K/uL (4.3-11.0)
[2016-12-19] MEDS: MEROPENEM 1 G in IV NS 0.9% 100 ML IV SCH ×3 (04:33→20:01)
[2016-12-19 04:44] LABS: ALBUMIN 1.9 g/dL (3.4-5.0); BILIRUBIN,TOTAL 0.3 mg/dL (0.2-1.0); CALCIUM, SERUM 8.2 mg/dL (8.5-10.1); CREATININE 0.3 mg/dL (0.6-1.3); MAGNESIUM 2.1 mg/dL (1.8-2.4); PHOSPHORUS 2.9 mg/dL (2.5-4.9); POTASSIUM 3.4 mmol/L (3.5-5.1); TOTAL PROTEIN, SERUM 6.5 g/dL (6.4-8.2)
--- NOTE | 2016-12-19 07:50 | NUR ---
DRAG OUT WORKER: pt.is without sedation, on AC vent mode, obtunded, U/LE flat, no cough reflex, AML, no grimacing, O2 sat. WNL, SR, Levophed was stopped over night, MAP 60-67 now, Levophed gtt to keep MAP below 60 order, H/H 7.9/24, no acute bleeding events by report, K+3.4/replace by order and stop IVF, suctioned orally - 100ml saliva out, viaTT - no blood
--- NOTE | 2016-12-19 08:00 | NUR ---
LOCAL TELEPHONE OPERATOR: GTF residual 20ml, no high episodes over night, continue goal 40ml/h, keep HOB over 35
[2016-12-19 08:12] LABS: ABG BASE EXCESS -4.9 mmol/L; ABG OXYGEN SATURATION 97.7 % (92.0-98.5); ABG PH 7.448 (7.350-7.450); ABG PO2 112.8 mmHg (75.0-100.0); AaDO2 213.3 mmHg; COHb 0.8 % (0.5-1.5); MetHb 0.9 % (0.0-1.5); PEEP,BG 0 cm H2O; SITE, ABG Right Radial
[2016-12-19] MEDS: MULTIVITAMINS W-MINERALS 1 TAB TABLET PO SCH (08:20)
[2016-12-19] MEDS: CHLORHEXIDINE GLUCONATE 15 ML UDC MM SCH ×2 (08:20→17:07)
[2016-12-19] MEDS: DOCUSATE SODIUM LIQ 100 MG/10 ML UDC GT SCH ×2 (08:20→17:07)
[2016-12-19] MEDS: PANTOPRAZOLE 40 MG VIAL IV SCH (08:20)
[2016-12-19] MEDS: POTASSIUM CHLORIDE 20 MEQ TAB.PRT.SR PO SCH ×3 (08:20→10:53)
[2016-12-19] MEDS: ACIDOPHILUS/BULGARICUS 1 EACH TAB.CHEW GT SCH ×3 (08:20→17:07)
[2016-12-19] MEDS: LINEZOLID RTU BAG 600 MG in PREMIX 1 EA IV SCH (08:21)
[2016-12-19] MEDS: POLYVINYL ALCOHOL 15 ML BOTTLE EACHEYE PRN ×2 (08:23→20:04)
[2016-12-19] MEDS: Z GUARD REMEDY 2 OZ OINT TP PRN ×2 (08:23→20:04)
[2016-12-19] MEDS: MUPIROCIN OINT 2% 22 GM TUBE SCH ×2 (08:23→20:03)
--- NOTE | 2016-12-19 08:50 | NUR ---
INDUSTRIAL SECURITY ANALYST: is in room, updated with pt.current status, neuro status, long time mental flat reaction with cough/gag reflex absent by RT, Caleb report(he knows pt.well), VS, I/O, ABG, H/H, GTF, pressor off now, see new orders
--- NOTE | 2016-12-19 12:25 | NUR ---
KNOCKER OFF: JOHAN Louie updated with pt.current condition, neuro status, pressor off, VS, I/O, GTF, labs, H/H, meds, said: continue Lovenox, see new orders
[2016-12-19] MEDS: ENOXAPARIN SODIUM 40 MG/0.4 ML DISP.SYRIN SQ SCH (12:28)
[2016-12-19] MEDS ORDERED: IV NS 0.9% 250 ML BAG IV ONE (16:40)
[2016-12-19] MEDS ORDERED: BLOOD IV SET 1 EA INFUS.SET MC ONE (17:00)
--- NOTE | 2016-12-19 17:00 | NUR ---
HOT STRIP MILL SUPERVISOR: pt.mother was notified by phone call re pt.current status, VS, orders, POC, H/H with Romanian translation, agree and gave consent for blood transfusion per JOHAN Louie order
--- NOTE | 2016-12-19 18:14 | NUR ---
ANESTHESIOLOGY PHYSICIAN ASSISTANT: pt.neuro status is same, comatose, still cough/gag reflex negative, suctioned deeply/keep HOB over 35, flat U/LE, no reaction by pain stimuli, very sluggish pupils reaction, SR, MAP over 65, pressor is off over 18 hrs, O2 sat. WNL, GTF residual WNL, charge nurse updated
--- NOTE | 2016-12-19 18:35 | NUR ---
PULLER OUT: unable to verify PRBC unit and match by product code scan (confirmed with CHACHO Gerber), notified blood bank and sent unit back
--- NOTE | 2016-12-19 18:43 | NUR ---
POLYMER MATERIALS CONSULTANT: blood bank will make other PRBC unit
--- NOTE | 2016-12-19 18:44 | NUR ---
GRINDER MACHINE SETTER: pt.mother is in room, notified re pt.current condition/neurostatus, VS, I/O, POC, orders, BT, H/H, said: she is aware and over 2 years her son is with status without pain stimuli reaction/absent cough reflex and flat extremities
--- NOTE | 2016-12-19 19:28 | NUR ---
EQUIPMENT SERVICE ASSOCIATE : RECEIVED REPORT AT BEDSIDE. ONE UNIT OF BLOOD VERIFIED AND TRANSFUSION STARTED W VIJAY RN . WILL MONITOR FOR ADVERSE REACTIONS . PT OBTUNDED AND DOES NOT RESPOND TO PAIN . NO GAG REFLEX NOTED. PUPILS EQUAL BUT SLUGGISH . PT TRACH PORTEX 7 CONNECTED TO VENT AT FOLLOWING SETTINGS: AC 14 ,TV 400, FIO2 50%, PEEP 5 . O2 SAT WNL . SUCTIONED PT AND HOB ELEVATED. G-TUBE INTACT AND PATENT. NO RESIDUAL NOTED AT THIS TIME , CONTINUE WITH FEEDING AT GOAL RATE . FC INTACT AND PATENT. CLOUDY YELLOW URINE NOTED. SKIN INTACT BUT SACRUM NOTED TO BE REDDENED AND HAS AN OLD SCAR. SASKIA AND L WRIST IV ACCESS INTACT AND PATENT. WILL CONT TO MONITOR FOR ANY CHANGES IN CONDITION
[2016-12-19] MEDS: LINEZOLID 600 MG TABLET GT SCH (20:01)
--- NOTE | 2016-12-19 21:55 | NUR ---
SPONGE BUFFER: TRANSFUSION ENDED. PT HAD NO AVERSE REACTIONS. WILL CONT TO MONITOR. BED BATH GIVEN AND TOLERATED WELL
[2016-12-20] VITALS (33 sets, daily range): BP systolic 92–115; BP diastolic 49–70
[2016-12-20] MEDS: ALBUTEROL FS 2.5 MG/0.5 ML VIAL.NEB NEB SCH ×4 (01:41→19:35)
[2016-12-20] MEDS: IPRATROPIUM NEB FS 0.5 MG/2.5 ML AMPUL.NEB IH SCH ×4 (01:41→19:35)
[2016-12-20 04:43] LABS: BASOPHILS % (AUTO) 0.3 % (0.0-2.0); EOSINOPHILS # (AUTO) 0.2 /CMM (0.0-0.7); EOSINOPHILS % (AUTO) 2.1 % (0.0-6.0); HEMATOCRIT 31 % (39-51); LYMPHOCYTES # (AUTO) 0.8 /CMM (0.8-4.8); MEAN CORPUSCULAR HEMOGLOBIN 27 PG (26.0-33.0); MEAN CORPUSCULAR HGB CONC 32 g/dl (31.0-36.0); MEAN CORPUSCULAR VOLUME 85 fL (80-96); MONOCYTES # (AUTO) 0.4 /CMM (0.1-1.30); MONOCYTES % (AUTO) 5.7 % (2.0-12.0); NEUTROPHILS # (AUTO) 6.3 /CMM (1.8-8.9); NEUTROPHILS % (AUTO) 81.9 % (43.0-81.0); PLATELET COUNT (AUTO) 240 /CMM (150-450); RDW COEFFICIENT OF VARIATION 18.9 (11.5-15.0); RED BLOOD CELL COUNT(AUTO) 3.65 MIL/uL (4.5-6.0); WHITE BLOOD COUNT (AUTO) 7.7 K/uL (4.3-11.0)
[2016-12-20 05:03] LABS: CALCIUM, SERUM 8.8 mg/dL (8.5-10.1); CREATININE 0.2 mg/dL (0.6-1.3)
[2016-12-20 05:07] LABS: POTASSIUM 5.3 mmol/L (3.5-5.1)
[2016-12-20] MEDS: MEROPENEM 1 G in IV NS 0.9% 100 ML IV SCH ×3 (05:09→21:09)
--- NOTE | 2016-12-20 07:31 | NUR ---
MANAGER MEAT: pt.is comatose, no cough/gag reflex, pupils are equal, very sluggish reaction, no grimacing, U/LE flat, keep HOB over 35, SR, pressor off, MAP over 60, got PRBC x1 last night, Hb 10.0, no acute bleeding event over night, GTF residaul, O2sat WNL
[2016-12-20] MEDS: MULTIVITAMINS W-MINERALS 1 TAB TABLET PO SCH (08:33)
[2016-12-20] MEDS: ACIDOPHILUS/BULGARICUS 1 EACH TAB.CHEW GT SCH ×3 (08:33→17:32)
[2016-12-20] MEDS: PANTOPRAZOLE 40 MG VIAL IV SCH (08:33)
[2016-12-20] MEDS: CHLORHEXIDINE GLUCONATE 15 ML UDC MM SCH ×2 (08:33→17:32)
[2016-12-20] MEDS: LINEZOLID 600 MG TABLET GT SCH (08:33)
[2016-12-20] MEDS: DOCUSATE SODIUM LIQ 100 MG/10 ML UDC GT SCH ×2 (08:33→17:32)
[2016-12-20] MEDS: ENOXAPARIN SODIUM 40 MG/0.4 ML DISP.SYRIN SQ SCH (08:34)
[2016-12-20] MEDS: POLYVINYL ALCOHOL 15 ML BOTTLE EACHEYE PRN (08:35)
[2016-12-20] MEDS: MUPIROCIN OINT 2% 22 GM TUBE SCH ×2 (08:35→21:10)
--- NOTE | 2016-12-20 08:57 | NUR ---
POCKET MARKER: Bob Louie NP is in room, updated with pt.current condition, neuro status, VS, I/O, labs, meds, [facility] transfer order, no BM last 24hrs, one PRBC unit was given, pt.mother visit, checked pt.reflexes, see new orders
--- NOTE | 2016-12-20 09:15 | NUR ---
MANAGER OF ENVIRONMENTAL SERVICES: is in room, notified re pt.current, neurostatus, VS, I/O, suction amount, GTF, pressor off over 24hrs, O2 sat., labs, see new orders, ok for [facility] transfer order
--- NOTE | 2016-12-20 15:42 | NUR ---
PER DIEM CLERK: same neuro status, SR, SBP over 100, GTF residual 60ml now, keep HOB over 40, no BM, O2 sat. WNL, got room in [facility]
--- NOTE | 2016-12-20 16:00 | NUR ---
ACQUISITIONS LOGISTICS ANALYST: pt.is transferred to [facility] after report for Zabrina, RN
--- NOTE | 2016-12-20 16:20 | NUR ---
GAIL/RN: RECEIVED REPORT FROM VIJAY FLOR IN ICU. PT TRANSFERRED TO ROOM 101 VIA BED. PT ON VENT SETTINGS ORDERED BY MD, NO ACUTE DISTRESS NOTED AT THIS TIME. PT SINUS ON TELE. PT COMATOSE, DOES NOTE FOLLOW COMMANDS, NO GAG OR COUGH REFLEX NOTED. RENEE CATH IN PLACE, URINE OUTPUT NOTED. GTUBE FEEDING INFUSING ORDERED, TOLERATING WELL. PICC LINE PATENT AND INTACT, NO S/S OF INFECTION. ALL NEEDS WILL BE MET, SAFETY MEASURES TAKEN, BED IN LOW POSITION, SIDE RAILS UP, CALL LIGHT WITHIN REACH.
--- NOTE | 2016-12-20 18:53 | NUR ---
GAIL/RN: REPORT WILL BE ENDORSED TO NIGHT NURSE FOR CONTINUATION OF CARE. ALL NEEDS MET. PT ON VENT SETTINGS ORDERED BY MD, NO ACUTE DISTRESS NOTED. STOOL SAMPLE SENT FOR OB. MOTHER AT BEDSIDE, PT CLEAN AND DRY. FEEDING INFUSING ORDERED. BED IN LOW POSITION, SIDE RAILS UP, CALL LIGHT WITHIN REACH. WILL CONTINUE CARE
[2016-12-20] MEDS: FIBERSOURCE HN 1,000 ML BOTTLE GT PRN (21:08)
[2016-12-21] VITALS: BP 102/60
[2016-12-21] MEDS: IPRATROPIUM NEB FS 0.5 MG/2.5 ML AMPUL.NEB IH SCH ×4 (01:45→19:43)
[2016-12-21] MEDS: ALBUTEROL FS 2.5 MG/0.5 ML VIAL.NEB NEB SCH ×4 (01:45→19:43)
[2016-12-21 04:00] VITALS: BP 102/78
[2016-12-21] MEDS: MEROPENEM 1 G in IV NS 0.9% 100 ML IV SCH ×3 (05:05→21:32)
[2016-12-21] MEDS ORDERED: IV NS 0.9% 250 ML IV ONE (05:06)
[2016-12-21 06:26] LABS: BASOPHILS % (AUTO) 0.3 % (0.0-2.0); EOSINOPHILS # (AUTO) 0.1 /CMM (0.0-0.7); EOSINOPHILS % (AUTO) 1.8 % (0.0-6.0); HEMATOCRIT 33 % (39-51); HEMOGLOBIN 10.6 g/dL (13.5-17.5); LYMPHOCYTES # (AUTO) 0.9 /CMM (0.8-4.8); LYMPHOCYTES % (AUTO) 11.1 % (20.0-44.0); MEAN CORPUSCULAR HEMOGLOBIN 28 PG (26.0-33.0); MEAN CORPUSCULAR HGB CONC 33 g/dl (31.0-36.0); MEAN CORPUSCULAR VOLUME 85 fL (80-96); MONOCYTES # (AUTO) 0.4 /CMM (0.1-1.30); MONOCYTES % (AUTO) 5.6 % (2.0-12.0); NEUTROPHILS # (AUTO) 6.3 /CMM (1.8-8.9); NEUTROPHILS % (AUTO) 81.2 % (43.0-81.0); PLATELET COUNT (AUTO) 312 /CMM (150-450); RDW COEFFICIENT OF VARIATION 18.8 (11.5-15.0); RED BLOOD CELL COUNT(AUTO) 3.86 MIL/uL (4.5-6.0); WHITE BLOOD COUNT (AUTO) 7.7 K/uL (4.3-11.0)
[2016-12-21 06:51] LABS: CREATININE 0.3 mg/dL (0.6-1.3); POTASSIUM 4.5 mmol/L (3.5-5.1)
[2016-12-21 08:00] VITALS: BP 110/71
[2016-12-21] MEDS: MULTIVITAMINS W-MINERALS 1 TAB TABLET PO SCH (09:26)
[2016-12-21] MEDS: PANTOPRAZOLE 40 MG VIAL IV SCH (09:26)
[2016-12-21] MEDS: CHLORHEXIDINE GLUCONATE 15 ML UDC MM SCH ×2 (09:26→17:02)
[2016-12-21] MEDS: DOCUSATE SODIUM LIQ 100 MG/10 ML UDC GT SCH ×2 (09:26→17:02)
[2016-12-21] MEDS: ACIDOPHILUS/BULGARICUS 1 EACH TAB.CHEW GT SCH ×3 (09:26→17:02)
[2016-12-21] MEDS: MUPIROCIN OINT 2% 22 GM TUBE SCH ×2 (09:27→21:33)
[2016-12-21] MEDS: ENOXAPARIN SODIUM 40 MG/0.4 ML DISP.SYRIN SQ SCH (09:37)
[2016-12-21 12:00] VITALS: BP 111/69
[2016-12-21 16:00] VITALS: BP 99/72
--- NOTE | 2016-12-21 16:00 | NUR ---
PT ASSISTED WITH FULL BED BATH , SKIN CARE. VSS, DOES NOT INDICATE PAIN.
--- NOTE | 2016-12-21 19:00 | NUR ---
FAMILY AT BEDSIDE UPDATED ON PROGRESS.
--- NOTE | 2016-12-21 19:50 | NUR ---
RN INITIAL NOTE; PT IN THE BED OBTUNDED , ON MECH VENT ,SETTING ORDERED. TELE MONITOR SHOWING SR HR 87. PICC LINE IN SASKIA AND PERIPHERAL IV IN LW 20 G INTACT AND PATENT. PEG TUBE INTACT AND PATENT WITH CONTINUE FIBERSOURCE @ 40 ML/HR . RESIDUAL NOTED 50ML . ASPIRATION PRECAUTION APPLIED. RENEE CATH INTACT AND DRAINING YELLOWISH URINE. BED IN THE LOWEST/LOCKED POSITION ,SAFETY MEASURES APPLIED. WILL CONTINUE TO MONITOR .
[2016-12-21 20:00] VITALS: BP 98/67
[2016-12-21] MEDS: POLYVINYL ALCOHOL 15 ML BOTTLE EACHEYE PRN (21:36)
[2016-12-22] VITALS: BP 102/68
[2016-12-22] MEDS: IPRATROPIUM NEB FS 0.5 MG/2.5 ML AMPUL.NEB IH SCH ×4 (01:27→19:46)
[2016-12-22] MEDS: ALBUTEROL FS 2.5 MG/0.5 ML VIAL.NEB NEB SCH ×4 (01:27→19:46)
[2016-12-22 04:00] VITALS: BP 102/68
[2016-12-22] MEDS: FIBERSOURCE HN 1,000 ML BOTTLE GT PRN (04:36)
[2016-12-22] MEDS: MEROPENEM 1 G in IV NS 0.9% 100 ML IV SCH ×3 (04:37→21:31)
[2016-12-22] MEDS ORDERED: IV NS 0.9% 250 ML IV ONE (05:00)
[2016-12-22] MEDS ORDERED: IV SET PRIMARY PUMP SET 1 EA INFUS.SET MC ONE (05:00)
[2016-12-22] MEDS ORDERED: SECONDARY IV SET 1 EA INFUS.SET MC ONE (05:00)
--- NOTE | 2016-12-22 06:54 | NUR ---
RN EOS NOTE; PT REMAINED STABLE DURING THE SHIFT, NO ANY DISTRESS NOTED DURING THE SHIFT, REMAINED SR 80s ON TELE MONITOR . KEPT CLEAN AND DRY . G TUBE FEEDING TOLERATED WELL. TOTAL CARE RENDERED. WILL ENDORSE TO NEXT SHIFT RN FOR CONTINUITY OF CARE.
[2016-12-22 08:00] VITALS: BP 104/65
[2016-12-22] MEDS: DOCUSATE SODIUM LIQ 100 MG/10 ML UDC GT SCH ×2 (09:03→16:32)
[2016-12-22] MEDS: ACETAMINOPHEN 650 MG/20.3 ML UDC NG PRN (09:03)
[2016-12-22] MEDS: PANTOPRAZOLE 40 MG VIAL IV SCH (09:03)
[2016-12-22] MEDS: CHLORHEXIDINE GLUCONATE 15 ML UDC MM SCH ×2 (09:03→16:32)
[2016-12-22] MEDS: ACIDOPHILUS/BULGARICUS 1 EACH TAB.CHEW GT SCH ×3 (09:04→16:32)
[2016-12-22] MEDS: MUPIROCIN OINT 2% 22 GM TUBE SCH ×2 (09:04→21:31)
[2016-12-22] MEDS: MULTIVITAMINS W-MINERALS 1 TAB TABLET PO SCH (09:04)
[2016-12-22] MEDS: ENOXAPARIN SODIUM 40 MG/0.4 ML DISP.SYRIN SQ SCH (09:09)
[2016-12-22 12:00] VITALS: BP_SYST 102; BP_SYST 12; BP_DIAS 54; BP_DIAS 58
[2016-12-22 16:00] VITALS: BP 100/71
--- NOTE | 2016-12-22 18:52 | NUR ---
end of shift patient remained stable this shift with no breathing complications. GT residuals always less than 50ml- tolerating feeding. no aspiration. minimal secretions via trach, moderate from mouth. no new skin break down. no complication @ midline iv site. L wrist iv removed. f/c patent, good urine output. LOC unchanged. call light in reach. repositioned q2hr and provided skin care.
--- NOTE | 2016-12-22 19:45 | NUR ---
RN INITIAL NOTE; PT IN THE BED OBTUNDED , ON MECH VENT ,SETTING ORDERED. TELE MONITOR SHOWING SR HR 78. PICC LINE IN SASKIA AND PERIPHERAL IV IN LW 20 G INTACT AND PATENT. PEG TUBE INTACT AND PATENT WITH CONTINUE FIBERSOURCE @ 40 ML/HR . NO RESIDUAL . ASPIRATION PRECAUTION APPLIED. RENEE CATH INTACT AND DRAINING YELLOWISH URINE. BED IN THE LOWEST/LOCKED POSITION ,SAFETY MEASURES APPLIED. WILL TURN AND REPOSITION Q2H AND NEEDED. WILL CONTINUE TO MONITOR .
[2016-12-22 20:00] VITALS: BP 105/63
[2016-12-22] MEDS: POLYVINYL ALCOHOL 15 ML BOTTLE EACHEYE PRN (21:32)
[2016-12-23] VITALS (7 sets, daily range): BP systolic 93–111; BP diastolic 48–73
[2016-12-23] MEDS: IPRATROPIUM NEB FS 0.5 MG/2.5 ML AMPUL.NEB IH SCH ×4 (01:30→20:11)
[2016-12-23] MEDS: ALBUTEROL FS 2.5 MG/0.5 ML VIAL.NEB NEB SCH ×4 (01:30→20:11)
[2016-12-23] MEDS ORDERED: IV NS 0.9% 250 ML IV ONE (02:55)
[2016-12-23] MEDS: MEROPENEM 1 G in IV NS 0.9% 100 ML IV SCH ×3 (04:54→20:47)
[2016-12-23] MEDS: FIBERSOURCE HN 1,000 ML BOTTLE GT PRN (04:55)
--- NOTE | 2016-12-23 07:00 | NUR ---
RN EOS NOTE; PT REMAINED STABLE DURING THE SHIFT, ALL PRESCRIBED MEDS TOLERATED WELL. REMAINED SR IN TELE MONITOR, G TUBE INTACT AND PATENT , FEEDING TOLERATED WELL. ASPIRATION PRECAUTION APPLIED. TOTAL CARE RENDERED , KEPT CLEAN AND DRY . ENDORSED TO DAY SHIFT RN FOR CONTINUITY OF CARE.
--- NOTE | 2016-12-23 07:15 | NUR ---
RN INITIAL NOTE PT RECEIVED IN BED, RESTING COMFORTABLY. PT IS OBTUNDED. NO S/S OF PAIN OR DISCOMFORT. SATING WELL ON TRACH SETTINGS. PORTEX #7, AC-14, TV-500, FI02 40%, PEEP-0. NO S/S OF RESPIRATORY DISTRESS OR SOB. SINUS RHYTHM ON TELE MONITOR. RENEE CATHETER DRAINING TO GRAVITY. GTUBE, FLUSHED, PATENT. PLACEMENT VERIFIED. FIBERSOURCE RUNNING AT 40ML/HR. TOLERATING FEEDING WELL. RIGHT UPPER ARM PICC LINE FLUSHED AND PATENT. DRESSING C/D/I. SKIN IS WARM AND DRY TO TOUCH. SAFETY MEASURES IMPLEMENTED, BED IN LOCKED, LOW POSITION. TWO SIDE RAILS UP. WILL MONITOR CLOSELY.
[2016-12-23] MEDS: MULTIVITAMINS W-MINERALS 1 TAB TABLET PO SCH (08:17)
[2016-12-23] MEDS: CHLORHEXIDINE GLUCONATE 15 ML UDC MM SCH ×2 (08:18→17:20)
[2016-12-23] MEDS: ACIDOPHILUS/BULGARICUS 1 EACH TAB.CHEW GT SCH ×3 (08:18→17:20)
[2016-12-23] MEDS: DOCUSATE SODIUM LIQ 100 MG/10 ML UDC GT SCH ×2 (08:18→17:20)
[2016-12-23] MEDS: PANTOPRAZOLE 40 MG VIAL IV SCH (08:18)
[2016-12-23] MEDS: MUPIROCIN OINT 2% 22 GM TUBE SCH ×2 (08:19→20:50)
[2016-12-23] MEDS: ENOXAPARIN SODIUM 40 MG/0.4 ML DISP.SYRIN SQ SCH (08:19)
[2016-12-23] MEDS: HYDROCODONE/APAP 5/325MG 1 EACH TABLET PO PRN (17:20)
--- NOTE | 2016-12-23 19:24 | NUR ---
RN CLOSING NOTE ALL MD ORDERS CARRIED OUT. PT KEPT CLEAN AND DRY. SAFETY PRECAUTIONS IN PLACE AT ALL TIMES. ISOLATION PRECAUTIONS OBSERVED ALWAYS. REPORT GIVEN TO PM RN FOR HARRY.
[2016-12-24] VITALS (7 sets, daily range): BP systolic 98–117; BP diastolic 63–70
[2016-12-24] MEDS: IPRATROPIUM NEB FS 0.5 MG/2.5 ML AMPUL.NEB IH SCH ×4 (02:20→19:43)
[2016-12-24] MEDS: ALBUTEROL FS 2.5 MG/0.5 ML VIAL.NEB NEB SCH ×4 (02:21→19:43)
[2016-12-24] MEDS: MEROPENEM 1 G in IV NS 0.9% 100 ML IV SCH ×3 (04:12→20:33)
--- NOTE | 2016-12-24 07:15 | NUR ---
RN INITIAL NOTE PT RECEIVED IN BED. NON VERBAL. ON TRACH PORTEX #7, AC-14, TV-500, FI02-40% PEEP-0. SATING WELL. NO S/S OF RESPIRATORY DISTRESS OR SOB. SINUS RHYTHM ON TELE MONITOR.. RENEE CATHETER DRAINING TO GRAVITY. GTUBE FLUSHED, PATENT AND PLACEMENT VERIFIED. FIBERSOURCE RUNNING AT 40ML/HR. TOLERATING FEEDING WELL. RIGHT UPPER ARM PICC LINE FLUSHED AND PATENT. DRESSING C/D/I. SAFETY PRECAUTIONS IMPLEMENTED. BED IN LOCKED, LOW POSITION WITH TWO SIDE RAILS UP. CALL LIGHT WITHIN EASY REACH. WILL MONITOR CLOSELY
[2016-12-24] MEDS: CHLORHEXIDINE GLUCONATE 15 ML UDC MM SCH ×2 (08:32→17:56)
[2016-12-24] MEDS: PANTOPRAZOLE 40 MG VIAL IV SCH (08:32)
[2016-12-24] MEDS: HYDROCODONE/APAP 5/325MG 1 EACH TABLET PO PRN (08:32)
[2016-12-24] MEDS: ACIDOPHILUS/BULGARICUS 1 EACH TAB.CHEW GT SCH ×3 (08:32→17:56)
[2016-12-24] MEDS: MULTIVITAMINS W-MINERALS 1 TAB TABLET PO SCH (08:32)
[2016-12-24] MEDS: DOCUSATE SODIUM LIQ 100 MG/10 ML UDC GT SCH ×2 (08:32→17:56)
[2016-12-24] MEDS: MUPIROCIN OINT 2% 22 GM TUBE SCH ×2 (08:32→20:34)
[2016-12-24] MEDS: ENOXAPARIN SODIUM 40 MG/0.4 ML DISP.SYRIN SQ SCH (08:35)
[2016-12-24] MEDS: FIBERSOURCE HN 1,000 ML BOTTLE GT PRN (09:27)
--- NOTE | 2016-12-24 19:21 | NUR ---
RN CLOSING NOTE ALL MD ORDERS CARRIED OUT, PT KEPT CLEAN AND DRY. SAFETY PRECAUTIONS IN PLACE AT ALL TIMES. REPORT GIVEN TO PM RN FOR HARRY.
--- NOTE | 2016-12-24 20:00 | NUR ---
RN NOTES RECEIVED PX NOT AROUSABLE TO PAIN, WIH FLACCID EXTREMITIES; TRACH TO VENT WITH DRESSING CLEAN,DRY,INTACT; WITH G TUBE CONNECTED TO TF, NO RESIDUAL; WITH DIAPER ON; RENEE CATH TAPED TO THIGH TO BAG BY GRAVITY; BILA DVT PUMPS ON WITH HEELS OFFLOADED; IV ACCESS ON RIGHT UA FLUSHED, PATENT,DRY,INTACT; HOB AT 30 ANGLE; REPOSITIONED TO THE RIGHT; SUCTIONED ORALLY AND TRACHEALLY; SR ON MONITOR.
[2016-12-24] MEDS: POLYVINYL ALCOHOL 15 ML BOTTLE EACHEYE PRN (20:34)
[2016-12-24] MEDS ORDERED: IV NS 0.9% 250 ML IV ONE (22:39)
[2016-12-25] VITALS: BP 104/66
[2016-12-25] MEDS: IPRATROPIUM NEB FS 0.5 MG/2.5 ML AMPUL.NEB IH SCH ×4 (01:32→20:22)
[2016-12-25] MEDS: ALBUTEROL FS 2.5 MG/0.5 ML VIAL.NEB NEB SCH ×4 (01:32→20:22)
[2016-12-25 04:00] VITALS: BP_SYST 104; BP_DIAS 66; BP_DIAS 67
[2016-12-25] MEDS: MEROPENEM 1 G in IV NS 0.9% 100 ML IV SCH ×3 (04:00→20:58)
--- NOTE | 2016-12-25 06:21 | NUR ---
RN NOTES NO ACUTE EVENTS OVERNIGHT; V/S WNL; SUCTIONED ORALLY AND TRACHEALLY; CLEANED PX AND CHANGED GOWN AND BED LINENS, PERICARE RENDERED; ORAL, TRACH, RENEE AND G TUBE SITE CARE RENDERED, PROCEDURE TOLERATED; NO NEW SKIN BREAKDOWN; IV ACCESS FLUSHABLE, PATENT INTACT; WILL ENDORSE TO NEXT RN.
[2016-12-25 08:00] VITALS: BP 104/73
[2016-12-25] MEDS: MULTIVITAMINS W-MINERALS 1 TAB TABLET PO SCH (08:20)
[2016-12-25] MEDS: ACIDOPHILUS/BULGARICUS 1 EACH TAB.CHEW GT SCH ×3 (08:20→17:20)
[2016-12-25] MEDS: PANTOPRAZOLE 40 MG VIAL IV SCH (08:20)
[2016-12-25] MEDS: CHLORHEXIDINE GLUCONATE 15 ML UDC MM SCH ×2 (08:20→17:20)
[2016-12-25] MEDS: DOCUSATE SODIUM LIQ 100 MG/10 ML UDC GT SCH ×2 (08:20→17:20)
[2016-12-25] MEDS: MUPIROCIN OINT 2% 22 GM TUBE SCH ×2 (08:21→21:02)
[2016-12-25] MEDS: ENOXAPARIN SODIUM 40 MG/0.4 ML DISP.SYRIN SQ SCH (08:24)
[2016-12-25 12:00] VITALS: BP 100/63
[2016-12-25 16:00] VITALS: BP 100/60
--- NOTE | 2016-12-25 18:24 | NUR ---
RN NOTES PT RESTING IN BED, MECH VENT SETTINGS PRESCRIBED, TARIK WELL. AFEBRILE. NO ACUTE CHANGE IN CONDITION NOTED. ALL DUE MEDS GIVEN NEEDS ATTENDED. KEPT COMFORTABLE.
--- NOTE | 2016-12-25 19:29 | NUR ---
TESTER FOOD PRODUCTS INITIAL NOTE RECEIVED PT IN BED. ON [facility] VENT WITH SETTINGS WELL TOLERATED. OBTUNDED WITH FLACCID PARALYSIS. TELE-SINUS RHYTHM. IV R UPPER ARM PICC CLEAN, FLUSHING WELL AND INTACT. GTUBE FEEDING WELL TOLERATED WITHOUT RESIDUAL. GTUBE SITE CLEAN AND INTACT. RENEE CATHETER IN PLACE, PATENT AND DRAINING WELL. ISOLATION PRECAUTIONS OBSERVED. WILL CONTINUE TO MONITOR.
[2016-12-25 20:00] VITALS: BP 106/69
[2016-12-25] MEDS ORDERED: SECONDARY IV SET 1 EA INFUS.SET MC ONE (20:29)
--- NOTE | 2016-12-25 22:25 | NUR ---
RN OPEN NOTES RECEIVED PATIENT RESTING IN BED. OBTUNDED. NO SIGNS OF DISTRESS OR DISCOMFORT. BREATHING EVEN AND UNLABORED. ON MECH VENT WITH SETTINGS ORDERED. ON TELE MONITORING WITH SR 70'S NOTED. SASKIA PICC, PATENT AND INTACT. GTUBE FEEDING RUNNING AND TOLERATING WELL. F/C PATENT AND INTACT, WITH CLEAR DARK YELLOW FLUID NOTED. BED IN LOW LOCKED POSITION WITH SIDE RAILS X2. CALL LIGHT WITHIN REACH. WILL CONTINUE TO MONITOR.
--- NOTE | 2016-12-25 22:32 | NUR ---
RN NOTE TRANSFER CARE TO ASHLEY FLOR FOR CONT OF CARE.
[2016-12-26] VITALS: BP 102/64
[2016-12-26] MEDS: ALBUTEROL FS 2.5 MG/0.5 ML VIAL.NEB NEB SCH ×4 (02:29→20:45)
[2016-12-26] MEDS: IPRATROPIUM NEB FS 0.5 MG/2.5 ML AMPUL.NEB IH SCH ×4 (02:29→20:45)
[2016-12-26] MEDS: FIBERSOURCE HN 1,000 ML BOTTLE GT PRN (03:41)
[2016-12-26 04:00] VITALS: BP 107/67
[2016-12-26] MEDS: MEROPENEM 1 G in IV NS 0.9% 100 ML IV SCH ×3 (05:17→21:04)
[2016-12-26 06:25] LABS: BASOPHILS % (AUTO) 0.1 % (0.0-2.0); EOSINOPHILS # (AUTO) 0.2 /CMM (0.0-0.7); EOSINOPHILS % (AUTO) 2.4 % (0.0-6.0); HEMATOCRIT 34 % (39-51); HEMOGLOBIN 11.3 g/dL (13.5-17.5); LYMPHOCYTES # (AUTO) 1.4 /CMM (0.8-4.8); LYMPHOCYTES % (AUTO) 19.2 % (20.0-44.0); MEAN CORPUSCULAR HEMOGLOBIN 28 PG (26.0-33.0); MEAN CORPUSCULAR HGB CONC 33 g/dl (31.0-36.0); MEAN CORPUSCULAR VOLUME 84 fL (80-96); MONOCYTES # (AUTO) 0.4 /CMM (0.1-1.30); MONOCYTES % (AUTO) 5.5 % (2.0-12.0); NEUTROPHILS # (AUTO) 5.4 /CMM (1.8-8.9); NEUTROPHILS % (AUTO) 72.8 % (43.0-81.0); PLATELET COUNT (AUTO) 514 /CMM (150-450); RDW COEFFICIENT OF VARIATION 19.1 (11.5-15.0); WHITE BLOOD COUNT (AUTO) 7.4 K/uL (4.3-11.0)
[2016-12-26 06:32] LABS: CALCIUM, SERUM 9.2 mg/dL (8.5-10.1); CREATININE 0.3 mg/dL (0.6-1.3); POTASSIUM 3.6 mmol/L (3.5-5.1)
--- NOTE | 2016-12-26 07:00 | NUR ---
RN NOTE RECEIVED PT ON BED , NONVERBAL , DOES NOT FOLLOWS COMMAND , VENT DEPENDENT , TRACH CARE DONE , TOLERATING CURRENT VENT SETTING WELL, PT IN BED. ON MECH VENT WITH SETTINGS WELL, ON TELE SR R UPPER ARM PICC CLEAN, FLUSHING WELL AND INTACT. G TUBE FEEDING WELL TOLERATED WITHOUT RESIDUAL. G TUBE SITE CLEAN AND INTACT. RENEE CATHETER DRAINING TO GRAVITY SR UP x3, CALL LIGHT WITHIN EASY REACH, ISOLATION PRECAUTIONS OBSERVED. WILL CONTINUE TO MONITOR PT CLOSELY AND NOTIFY MD FOR ANY SINGIFNCT CHANGES
--- NOTE | 2016-12-26 07:01 | NUR ---
RN CLOSING NOTES PATIENT RESTING IN BED. OBTUNDED. NO SIGNS OF DISTRESS OR DISCOMFORT. BREATHING EVEN AND UNLABORED. ON MECH VENT WITH SETTINGS ORDERED. ON TELE MONITORING WITH SR 100 NOTED. SASKIA PICC, PATENT AND INTACT. GTUBE FEEDING RUNNING AND TOLERATING WELL. F/C PATENT AND INTACT, WITH CLEAR DARK YELLOW FLUID NOTED. NO SIGNIFICANT CHANGES THROUGH THE NIGHT. PATIENT KEPT CLEAN DRY AND COMFORTABLE. REPOSITIONED Q2H. BED IN LOW LOCKED POSITION WITH SIDE RAILS X2. CALL LIGHT WITHIN REACH. WILL ENDORSE TO AM SHIFT FOR HARRY.
[2016-12-26 08:00] VITALS: BP 111/77
[2016-12-26] MEDS: CHLORHEXIDINE GLUCONATE 15 ML UDC MM SCH ×2 (08:53→16:20)
[2016-12-26] MEDS: DOCUSATE SODIUM LIQ 100 MG/10 ML UDC GT SCH ×2 (08:53→16:20)
[2016-12-26] MEDS: ENOXAPARIN SODIUM 40 MG/0.4 ML DISP.SYRIN SQ SCH (08:53)
[2016-12-26] MEDS: MULTIVITAMINS W-MINERALS 1 TAB TABLET PO SCH (08:53)
[2016-12-26] MEDS: ACIDOPHILUS/BULGARICUS 1 EACH TAB.CHEW GT SCH ×3 (08:53→16:20)
[2016-12-26] MEDS: PANTOPRAZOLE 40 MG VIAL IV SCH (08:53)
[2016-12-26] MEDS: MUPIROCIN OINT 2% 22 GM TUBE SCH ×2 (08:54→21:05)
[2016-12-26 12:00] VITALS: BP 109/71
--- NOTE | 2016-12-26 12:00 | NUR ---
RN NOTES TRACH CARE DONE, PT STABLE , CONTINUE TO MONITOR .
[2016-12-26 16:00] VITALS: BP 102/60
[2016-12-26] MEDS: PROSOURCE / PROSTAT (PYXIS) 30 ML UDC GT SCH (16:20)
--- NOTE | 2016-12-26 18:14 | NUR ---
RN NOTES VSS STABLE , SUPPORTIVE FAMILY AT THE BEDSIDE ,RENEE DRAINING TO GRAVITY , R UPPER ARM MIDLINE CDI,PT MEDICATED PER MD ORDER , NO SIGNIFICANT CHANGES NOTED ON THIS SHIFT .
--- NOTE | 2016-12-26 19:36 | NUR ---
COTTON FACTOR INITIAL NOTE RECEIVED PT IN BED WITH MOTHER AT BEDSIDE. OBTUNDED AND ON MECH VENT WITH SETTINGS WELL TOLERATED. IV SITE INTACT AND PATENT. GTUBE CLEAN, INTACT AND PATENT. FLUSHING WELL WITHOUT RESIDUAL NOTED. ISOLATION PRECAUTION OBSERVED. TELE-SINUS RHYTHM 80'S. WILL CONTINUE TO MONITOR.
[2016-12-26 20:00] VITALS: BP 100/68
[2016-12-27] VITALS: BP 104/75
[2016-12-27] MEDS: ALBUTEROL FS 2.5 MG/0.5 ML VIAL.NEB NEB SCH ×3 (02:11→13:06)
[2016-12-27] MEDS: IPRATROPIUM NEB FS 0.5 MG/2.5 ML AMPUL.NEB IH SCH ×3 (02:11→13:06)
[2016-12-27] MEDS ORDERED: IV SET PRIMARY PUMP SET 1 EA INFUS.SET MC ONE (03:20)
[2016-12-27] MEDS ORDERED: IV NS 0.9% 250 ML IV ONE (03:20)
[2016-12-27] MEDS: FIBERSOURCE HN 1,000 ML BOTTLE GT PRN (03:27)
[2016-12-27 04:00] VITALS: BP 112/77
[2016-12-27] MEDS: MEROPENEM 1 G in IV NS 0.9% 100 ML IV SCH ×2 (04:41→12:32)
--- NOTE | 2016-12-27 06:29 | NUR ---
WOMEN DESIGNER CLOSING NOTE PT REMAINED STABLE DURING SHIFT. NO ACUTE DISTRESS NOTED. VENT SETTINGS WELL TOLERATED. ISOLATION PRECAUTIONS OBSERVED. ALL NEEDS ATTENDED TO AND MET PROMPTLY. WILL ENDORSE TO NEXT SHIFT FOR HARRY.
--- NOTE | 2016-12-27 07:30 | NUR ---
INITIAL NOTE RESTING IN BED, OBTUNDED. BREATHING STABLE WITH MECH VENT. GT NO COMPLICATIONS, 40ML RESIDUAL, FEEDING RUNNING ORDER. F/C AND IV PATENT, NO COMPLICATIONS AT INSERTION SITE. SKIN WARM AND DRY. SUCTION, MODERATE SECRETIONS. REPOSITIONED, EXPLAINED PLAN OF CARE. CALL LIGHT IN REACH.
[2016-12-27 08:00] VITALS: BP 112/77
[2016-12-27] MEDS: PANTOPRAZOLE 40 MG VIAL IV SCH (08:07)
[2016-12-27] MEDS: MULTIVITAMINS W-MINERALS 1 TAB TABLET PO SCH (08:07)
[2016-12-27] MEDS: ACIDOPHILUS/BULGARICUS 1 EACH TAB.CHEW GT SCH ×3 (08:07→16:14)
[2016-12-27] MEDS: PROSOURCE / PROSTAT (PYXIS) 30 ML UDC GT SCH ×2 (08:07→16:14)
[2016-12-27] MEDS: MUPIROCIN OINT 2% 22 GM TUBE SCH (08:07)
[2016-12-27] MEDS: DOCUSATE SODIUM LIQ 100 MG/10 ML UDC GT SCH ×2 (08:07→16:14)
[2016-12-27] MEDS: CHLORHEXIDINE GLUCONATE 15 ML UDC MM SCH ×2 (08:07→16:14)
[2016-12-27] MEDS: ENOXAPARIN SODIUM 40 MG/0.4 ML DISP.SYRIN SQ SCH (08:08)
--- NOTE | 2016-12-27 11:39 | NUR ---
EMAR CLEARED FOR UPTODATE ADMINISTRATION OF MEDS
[2016-12-27 12:00] VITALS: BP 111/72
--- NOTE | 2016-12-27 12:49 | NUR ---
seen by JOHAN Rojas, deemed stable to return to senior care. family independence case manager aware and said no bed available at this time and will inform nursing staff when to start discharge.
[2016-12-27 16:00] VITALS: BP 109/76
--- NOTE | 2016-12-27 19:24 | NUR ---
Patient discharged at this time after confirmed and ordered by PORK CUTLET MAKER Bob. VS have been stable, patient LOC and breathing is unchanged and at baseline. PICC line remain in patient for continuation of IV ordered by Bob. F/C and GT functioning well. no new skin breakdown, photo of sacrum in chart, only blanchable redness. unknown vaccination status- no pneumo vaccine administered. out of flu season. mother at the bed side verbalizing understanding. all paper work given and signed by 2 nurses. no belongings. transported via ambulance and gurney with RT present. medication continuation and d/c list with paper work and copy in chart. gave report to Hipolito, nurse at [facility] for continuity of care- informed of PICC and F/C. gave full bed bath before transferring. patient left in stable condition.
== END 2016-12-27 19:35 | DRG 130 ==
LOC: ER 20:55 → ICU 22:46 → TELE-TD 12-20 16:06 → TELE1 12-21 08:41
PROC: 5A1955Z Respiratory Ventilation, Greater than 96 Consecutive Hours (ICD-10-PCS; 2016-12-17)
PROC: B548ZZA Ultrasonography of Superior Vena Cava, Guidance (ICD-10-PCS; principal; 2016-12-18)
PROC: 02HV33Z Insertion of Infusion Device into Superior Vena Cava, Percutaneous Approach (ICD-10-PCS; principal; 2016-12-18)
PROC: 30233N1 Transfusion of Nonautologous Red Blood Cells into Peripheral Vein, Percutaneous Approach (ICD-10-PCS; 2016-12-19)
DX: J95.851 Ventilator associated pneumonia (principal); R65.21 Severe sepsis with septic shock; A41.9 Sepsis, unspecified organism; G93.40 Encephalopathy, unspecified; J15.1 Pneumonia due to Pseudomonas; J90 Pleural effusion, not elsewhere classified; E87.0 Hyperosmolality and hypernatremia; G12.21 Amyotrophic lateral sclerosis; K72.00 Acute and subacute hepatic failure without coma; Z99.11 Dependence on respirator [ventilator] status; Z93.0 Tracheostomy status; R13.10 Dysphagia, unspecified; K21.9 Gastro-esophageal reflux disease without esophagitis; N39.0 Urinary tract infection, site not specified; E87.6 Hypokalemia; E83.42 Hypomagnesemia; J96.11 Chronic respiratory failure with hypoxia; Y84.8 Other medical procedures as the cause of abnormal reaction of the patient, or of later complication, without mention of misadventure at the time of the procedure; Z87.440 Personal history of urinary (tract) infections; D68.59 Other primary thrombophilia; F03.90 Unspecified dementia, unspecified severity, without behavioral disturbance, psychotic disturbance, mood disturbance, and anxiety; Z74.01 Bed confinement status; J98.11 Atelectasis; D63.8 Anemia in other chronic diseases classified elsewhere; E88.09 Other disorders of plasma-protein metabolism, not elsewhere classified; Z93.1 Gastrostomy status; Z68.20 Body mass index [BMI] 20.0-20.9, adult; R74.0 Nonspecific elevation of levels of transaminase and lactic acid dehydrogenase [LDH]; E80.6 Other disorders of bilirubin metabolism; B96.1 Klebsiella pneumoniae [K. pneumoniae] as the cause of diseases classified elsewhere; B96.89 Other specified bacterial agents as the cause of diseases classified elsewhere; Z16.12 Extended spectrum beta lactamase (ESBL) resistance; E44.0 Moderate protein-calorie malnutrition; Y82.8 Other medical devices associated with adverse incidents; Y92.129 Unspecified place in nursing home as the place of occurrence of the external cause
CPT/HCPCS: 31720; 36415; 36569; 36600; 71010-TC; 80048-TC; 80053-TC; 80061-TC; 80076-TC; 81000-TC; 82272-TC; 82803-TC; 83605-TC; 83735-TC; 84100-TC; 84443-TC; 84484-TC; 85025-TC; 85730-TC; 86850-TC; 86921-TC; 87040-TC; 87070-TC; 87081-TC; 87086-TC; 87186-TC; 93307-TC; 94002-TC; 94003-TC; 94762-TC; 99082-TC; A4216; A4606; A4623; C1751; C1769; C9113; J1650; J1956; J2020; J2185; J2270; J3475; J3480; J3490; J7030; J7050; J7060; P9016-BL; Z7610

== ENCOUNTER 2017-04-03 21:19 | Inpatient (IN) | payer MEDICAID, OTHER ==
[~2017-04-03] VITALS: Ht 172.7 cm; Wt 49.0 kg
--- NOTE | 2017-04-03 21:20 | NUR ---
26 YO MALE BB RA FROM SNF. PT IS ALERT X 3, PER EMS SNF CALLED FOR FEVER. PT DS TO ER BED, SKIN WARM AND DRY, RR EVEN AND VENT DEPENDENT. NOTED RIGHT UPPER ARM PICC LINE. PT GOWNED, PLACED ON [employer] AND CAMPING GROUND MANAGER. AWAITING ORDERS FORM PROVIDER, WILL CONTINEU TO MONITOR
--- NOTE | 2017-04-03 21:28 | NUR ---
BLOOD SAMPLE OBTAINED AND SENT TO LAB
[2017-04-03] MEDS ORDERED: IV NS 0.9% 1,000 ML BAG IV ONE (21:30)
--- NOTE | 2017-04-03 21:30 | NUR ---
MEDICATED PT ORDERED
[2017-04-03 21:33] VITALS: BP 98/75
--- NOTE | 2017-04-03 21:36 | NUR ---
PT REC'D TRACHED PORTEX SZ 7 ON NOTED VENT SETTING GIVEN FROM EMT. NO RESP DISTRESS NOTED AT THIS TIME. SWINE GENETICS RESEARCHER CUFF PRESSURE NOTED. SX'D THICK MOD AMT OF YELLOW SECRETIONS. VENT PLUGGED INTO RED OUTLET, ALARMS ARE SET AND AUDIBLE, AMBU BAG BEDSIDE, WILL CONTINUE TO MONITOR Addendum: 04/03/17 at 3478 by CHAVEZ POPE RT Amended: Links added.
--- NOTE | 2017-04-03 21:40 | NUR ---
URINE SAMPLE COLLECTED AND SENT TO LAB
[2017-04-03 21:42] LABS: BASOPHILS # (AUTO) 0.1 /CMM (0.0-0.2); BASOPHILS % (AUTO) 0.2 % (0.0-2.0); EOSINOPHILS # (AUTO) 0.1 /CMM (0.0-0.7); EOSINOPHILS % (AUTO) 0.2 % (0.0-6.0); HEMATOCRIT 39 % (39-51); HEMOGLOBIN 12.7 g/dL (13.5-17.5); LYMPHOCYTES # (AUTO) 0.7 /CMM (0.8-4.8); LYMPHOCYTES % (AUTO) 2.5 % (20.0-44.0); MEAN CORPUSCULAR HEMOGLOBIN 26 PG (26.0-33.0); MEAN CORPUSCULAR HGB CONC 33 g/dl (31.0-36.0); MEAN CORPUSCULAR VOLUME 81 fL (80-96); MONOCYTES # (AUTO) 0.9 /CMM (0.1-1.30); MONOCYTES % (AUTO) 2.9 % (2.0-12.0); NEUTROPHILS # (AUTO) 27.8 /CMM (1.8-8.9); NEUTROPHILS % (AUTO) 94.2 % (43.0-81.0); PLATELET COUNT (AUTO) 435 /CMM (150-450); RDW COEFFICIENT OF VARIATION 20.1 (11.5-15.0); RED BLOOD CELL COUNT(AUTO) 4.81 MIL/uL (4.5-6.0); WHITE BLOOD COUNT (AUTO) 29.6 K/uL (4.3-11.0)
[2017-04-03 21:59] LABS: CALCIUM, SERUM 9.4 mg/dL (8.5-10.1); CARBON DIOXIDE 25 mmol/L (21-32); CHLORIDE 106 mmol/L (98-107); CREATININE 0.2 mg/dL (0.6-1.3); GLUCOSE 84 mg/dL (74-106); POTASSIUM 3.7 mmol/L (3.5-5.1); SODIUM SERUM 143 mmol/L (136-145); UREA NITROGEN, BLOOD 20 mg/dL (7-18)
[2017-04-03 22:00] LABS: INR 1.05 (0.87-1.13); PROTHROMBIN TIME 11.3 SECS (9.5-12.7)
[2017-04-03 22:05] LABS: ALANINE AMINOTRANSFERASE 39 U/L (12-78); ALBUMIN 3.2 g/dL (3.4-5.0); ALKALINE PHOSPHATASE 181 U/L (46-116); ASPARTATE AMINOTRANSFERASE 18 U/L (15-37); BILIRUBIN,DIRECT 0.1 mg/dL (0.0-0.2); BILIRUBIN,TOTAL 0.6 mg/dL (0.2-1.0); TOTAL PROTEIN, SERUM 9.5 g/dL (6.4-8.2)
[2017-04-03 22:07] LABS: TROPONIN I < 0.017 ng/mL (0.00-0.056)
[2017-04-03 22:35] LABS: APPEARANCE,URINE CLOUDY (CLEAR); COLOR,URINE YELLOW (YELLOW)
[2017-04-03 22:38] LABS: BILIRUBIN,URINE 2+ (NEGATIVE); BLOOD, URINE 3+ Ery/uL (NEGATIVE); KETONES,URINE NEGATIVE (NEGATIVE); PH,URINE 8.5 (5.0-8.0); PROTEIN,URINE 3+ mg/dl (NEGATIVE); UGLUCOSE NEGATIVE (NEGATIVE)
[2017-04-03 22:39] LABS: LEUKOCYTE ESTERASE ,URINE 3+ (NEGATIVE); NITRITE, URINE POSITIVE (NEGATIVE); UROBILINOGEN,URINE 0.2 EU/dL (0.2)
[2017-04-03 22:40] LABS: BACTERIA,URINE 4+ /HPF (None Seen); WBC,URINE 81-100 /HPF (0-3)
[2017-04-03 22:41] LABS: SQUAMOUS EPITHELIAL CELL,UR Rare /HPF (None Seen)
[2017-04-03] MEDS ORDERED: PIPERACILLIN /TAZOBACTAM 3.375 G in IV D5W 50 ML IV ONE (23:00)
[2017-04-03] MEDS ORDERED: LEVOFLOXACIN 750 MG /D5W 150ML 150 ML IV ONE (23:00)
[2017-04-03] MEDS ORDERED: LEVOFLOXACIN 750 MG /D5W 150ML PIGGYBACK IV ONE (23:00)
[2017-04-03] MEDS ORDERED: PIPERACILLIN /TAZOBACTAM 3.375 G VIAL IV ONE (23:17)
--- NOTE | 2017-04-03 23:30 | NUR ---
PT CONTINUE TO BE HYPOTENSIVE. NOTIFIED
[2017-04-04] VITALS (7 sets, daily range): BP systolic 98–117; BP diastolic 61–70
[2017-04-04] MEDS ORDERED: IV NS 0.9% 1,000 ML BAG IV ONE
--- NOTE | 2017-04-04 00:05 | NUR ---
TELE-TD/DBA RECEIVED PT TO ROOM 110 ACCOMPANIED BY ER STAFF. PT WAS TRANSFERRED TO BED. PLACED ON MECH VENT BY RT. PT PLACED ON TELE MONITOR SINUS TACH. ADMISSION ASSESSMENT COMPLETE. SKIN ASSESSMENT COMPLETE. SKIN INTACT. RIGHT UPPER ARM PICC LINE INTACT AND PATENT. RENEE CATH DRAINING CLEAR YELLOW URINE TO GRAVITY. SIDE RAILS UP x3. BED IN LOWEST LOCKED POSITION. CALL LIGHT WITHIN REACH. AWAITING ORDERS FROM DR. JAMA. WILL CONTINUE TO MONITOR.
--- NOTE | 2017-04-04 00:09 | NUR ---
TRANSPORTED PT TO TELE BED WITHOUT INCDIENT
[2017-04-04] MEDS ORDERED: ONDANSETRON HCL/PF 4 MG/2 ML VIAL IVP PRN (02:30)
[2017-04-04] MEDS ORDERED: ACETAMINOPHEN 650 MG/SUPP.RECT RC PRN (02:30)
[2017-04-04] MEDS ORDERED: IPRATROPIUM NEB FS 0.5 MG/2.5 ML AMPUL.NEB HHN PRN (02:30)
[2017-04-04] MEDS ORDERED: ENOXAPARIN SODIUM 40 MG/0.4 ML DISP.SYRIN SQ SCH (02:30)
[2017-04-04] MEDS ORDERED: FIBERSOURCE HN 1,000 ML BOTTLE GT PRN (02:30)
[2017-04-04] MEDS ORDERED: ALBUTEROL FS 2.5 MG/0.5 ML VIAL.NEB NEB PRN (02:30)
[2017-04-04] MEDS ORDERED: ENOXAPARIN SODIUM 40 MG/0.4 ML DISP.SYRIN SQ ONE (02:45)
[2017-04-04] MEDS: IV NS 0.9% 1,000 ML IV PRN ×2 (02:59→21:19)
[2017-04-04] MEDS ORDERED: MEROPENEM 1 G VIAL IV ONE (04:37)
[2017-04-04] MEDS: MEROPENEM 1 G in IV NS 0.9% 100 ML IV SCH ×3 (05:08→21:18)
[2017-04-04 06:51] LABS: HEMATOCRIT 33 % (39-51); LYMPHOCYTES # (AUTO) 0.6 /CMM (0.8-4.8); LYMPHOCYTES % (AUTO) 1.7 % (20.0-44.0); MEAN CORPUSCULAR HEMOGLOBIN 27 PG (26.0-33.0); MEAN CORPUSCULAR HGB CONC 33 g/dl (31.0-36.0); MEAN CORPUSCULAR VOLUME 81 fL (80-96); MONOCYTES # (AUTO) 0.9 /CMM (0.1-1.30); MONOCYTES % (AUTO) 2.6 % (2.0-12.0); NEUTROPHILS % (AUTO) 95.7 % (43.0-81.0); PLATELET COUNT (AUTO) 345 /CMM (150-450); RDW COEFFICIENT OF VARIATION 21.3 (11.5-15.0)
[2017-04-04 07:17] LABS: CALCIUM, SERUM 8.6 mg/dL (8.5-10.1); CREATININE 0.2 mg/dL (0.6-1.3); MAGNESIUM 1.6 mg/dL (1.8-2.4); PHOSPHORUS 3.3 mg/dL (2.5-4.9); POTASSIUM 3.4 mmol/L (3.5-5.1)
[2017-04-04 07:26] LABS: WHITE BLOOD COUNT (AUTO) 33.5 K/uL (4.3-11.0)
[2017-04-04] MEDS: IPRATROPIUM NEB FS 0.5 MG/2.5 ML AMPUL.NEB IH SCH ×3 (07:35→19:46)
[2017-04-04] MEDS: ALBUTEROL FS 2.5 MG/0.5 ML VIAL.NEB NEB SCH ×3 (07:35→19:46)
--- NOTE | 2017-04-04 07:53 | NUR ---
GAIL RN NOTES PT IN BED OBTUNDED UNABLE TO FOLLOW ANY COMMANDS. TRACH TO VENT SETTING. AMBU BAG AT BS. TELE ST 107. F/C YELLOW TO GRAVITY. WILL START TF FIBER SOURCE ORDERED. RUE PICC INTACT, PATENT, NO S/S INFECTION. IVF ORDERED. BED LOW LOCKED POSITION SAFETY MEASURE PROVIDED. CALL LIGHT W/IN REACH. WILL CONT TO MONITOR CLOSELY.
[2017-04-04 08:43] LABS: ABG BASE EXCESS -4.8 mmol/L; ABG OXYGEN SATURATION 92.1 % (92.0-98.5); ABG PCO2 35.3 mmHg (35.0-45.0); ABG PH 7.367 (7.350-7.450); ABG PO2 67.9 mmHg (75.0-100.0); AaDO2 176.7 mmHg; MetHb 0.8 % (0.0-1.5); O2Hb 90.4 % (94.0-97.0); SITE, ABG Right Radial; VT, ABG 500 mL
[2017-04-04] MEDS ORDERED: METOCLOPRAMIDE HCL 10 MG/10 ML UDC GT SCH (09:00)
[2017-04-04] MEDS ORDERED: LINEZOLID RTU BAG 600 MG in PREMIX 1 EA IV SCH (09:00)
[2017-04-04] MEDS: CHLORHEXIDINE GLUCONATE 15 ML UDC MM SCH ×2 (09:08→16:24)
[2017-04-04] MEDS: ACIDOPHILUS/BULGARICUS 1 EACH TAB.CHEW GT SCH ×3 (09:09→16:26)
[2017-04-04] MEDS: METOPROLOL TARTRATE 25 MG TABLET GT SCH ×2 (09:09→16:25)
[2017-04-04 09:22] LABS: BAND % (MANUAL) 16 % (0.0-5.0); LYMPHOCYTES % (MANUAL) 2 % (16-48); MONOCYTES % (MANUAL) 2 % (0-11.0); NEUTROPHILS % (MANUAL) 80 (42-76)
[2017-04-04] MEDS: LINEZOLID RTU BAG 600 MG in PREMIX 1 EA IV SCH ×2 (09:24→21:18)
[2017-04-04] MEDS: MUPIROCIN OINT 2% 22 GM TUBE SCH ×2 (09:24→21:19)
--- NOTE | 2017-04-04 09:50 | NUR ---
ANGY BROWN SPOKE WIT DR WREN NOTIFIED THAT SAT WAS LOW BEFRE 88 % OK TO CHANGE PEEP 5, RT AT BEDSIDE , CHANGED ORDERED, WILL CONT TO MONITOR CLOSELY Addendum: 04/04/17 at 0956 by HERBERT CARRILLO RN DR ENGEL AWARE THAT WBC 33.5
[2017-04-04] MEDS ORDERED: POTASSIUM CHLORIDE 20 MEQ POWDER PACKET GT SCH (12:30)
[2017-04-04] MEDS: Magnesium 1GM/D5W 100ML PREMIX 100 ML IV SCH ×2 (12:53→13:58)
--- NOTE | 2017-04-04 14:08 | NUR ---
GAIL RN NOTE DIETATION NOTIFIED THAT PATIENT HAS RESIDUAL 150 ML ,STATED OK TO START GTUBE FEEDING AT 30 ML PER HOUR MAX 60 . WILL F\U
--- NOTE | 2017-04-04 18:30 | NUR ---
GAIL RN NOTES PT TOLERATING TF WELL. 5CC RESIDUAL NOTED AT THIS TIME. WILL CONT AT 30CC/HR TOWARDS WITH MAXIMUM GOAL OF 65CC/HR.
[2017-04-04] MEDS: ENOXAPARIN SODIUM 40 MG/0.4 ML DISP.SYRIN SQ SCH (21:22)
[2017-04-05] VITALS (8 sets, daily range): BP systolic 94–131; BP diastolic 58–70
[2017-04-05] MEDS: ALBUTEROL FS 2.5 MG/0.5 ML VIAL.NEB NEB SCH ×4 (01:31→19:35)
[2017-04-05] MEDS: IPRATROPIUM NEB FS 0.5 MG/2.5 ML AMPUL.NEB IH SCH ×4 (01:31→19:35)
[2017-04-05] MEDS: MEROPENEM 1 G in IV NS 0.9% 100 ML IV SCH ×3 (05:07→22:04)
[2017-04-05 06:50] LABS: CALCIUM, SERUM 8.4 mg/dL (8.5-10.1); CREATININE 0.2 mg/dL (0.6-1.3); MAGNESIUM 1.8 mg/dL (1.8-2.4); PHOSPHORUS 2.7 mg/dL (2.5-4.9); POTASSIUM 3.8 mmol/L (3.5-5.1)
[2017-04-05 06:51] LABS: THYROID STIMULATING HORMONE 1.624 uIU/mL (0.358-3.74)
--- NOTE | 2017-04-05 07:00 | NUR ---
GAIL INITIAL NOTE RECEIVED PT IN BED, OBTUNDED, PT IS ON MECH VENT, PORTEX #8 AC 14 AC 500 FIO2 40% PEEP 5, SATING 100%, NO S/S OF RESP.DISTRESS OR SOB NOTED AT THIS TIME, PT IS ON TELE MONITOR SHOWING SR @91 BPM, NO S/S OF CHEST PAIN OR DISCOMFORT AT THIS TIME, PT HAS F/C DRAINING URINE TO GRAVITY, PT HAS GTUBE, INTACT/PATENT, FLUSHING WELL, RUNNING FIBERSOURCE @30ML/HR, TOLERATING WELL, PT HAS SASKIA PICC LINE C/D/I/PATENT, FLUSHING WELL, RUNNING NS @75ML/HR, NO S/S OF INFECTION/ INFILTRATION NOTED AT THIS TIME, PT IS NOTED WITH MULTIPLE SKIN ISSUES NOTED, ALL SAFETY MEASURES IN PLACE AT ALL TIMES, CALL LIGHT WITHIN EASY REACH, WILL MONITOR PT CLOSELY FOR CHANGES
[2017-04-05 07:57] LABS: BASOPHILS % (AUTO) 0.2 % (0.0-2.0); EOSINOPHILS # (AUTO) 0.1 /CMM (0.0-0.7); EOSINOPHILS % (AUTO) 1.4 % (0.0-6.0); HEMATOCRIT 28 % (39-51); HEMOGLOBIN 9.4 g/dL (13.5-17.5); LYMPHOCYTES # (AUTO) 1.2 /CMM (0.8-4.8); LYMPHOCYTES % (AUTO) 11.3 % (20.0-44.0); MEAN CORPUSCULAR HEMOGLOBIN 26 PG (26.0-33.0); MEAN CORPUSCULAR HGB CONC 33 g/dl (31.0-36.0); MEAN CORPUSCULAR VOLUME 80 fL (80-96); MONOCYTES # (AUTO) 0.5 /CMM (0.1-1.30); MONOCYTES % (AUTO) 4.9 % (2.0-12.0); NEUTROPHILS # (AUTO) 8.4 /CMM (1.8-8.9); NEUTROPHILS % (AUTO) 82.2 % (43.0-81.0); PLATELET COUNT (AUTO) 339 /CMM (150-450); RDW COEFFICIENT OF VARIATION 21.3 (11.5-15.0); RED BLOOD CELL COUNT(AUTO) 3.54 MIL/uL (4.5-6.0)
[2017-04-05 08:03] LABS: WHITE BLOOD COUNT (AUTO) 10.2 K/uL (4.3-11.0)
[2017-04-05] MEDS: ACIDOPHILUS/BULGARICUS 1 EACH TAB.CHEW GT SCH ×3 (08:53→18:26)
[2017-04-05] MEDS: CHLORHEXIDINE GLUCONATE 15 ML UDC MM SCH ×2 (08:53→18:25)
[2017-04-05] MEDS: FIBERSOURCE HN 1,000 ML BOTTLE GT PRN (08:53)
[2017-04-05] MEDS: PROSOURCE / PROSTAT (PYXIS) 30 ML UDC GT SCH (08:53)
[2017-04-05] MEDS: IV NS 0.9% 1,000 ML IV PRN (08:53)
[2017-04-05] MEDS: LINEZOLID RTU BAG 600 MG in PREMIX 1 EA IV SCH ×2 (08:54→22:39)
[2017-04-05] MEDS: METOPROLOL TARTRATE 25 MG TABLET GT SCH ×2 (08:54→17:00)
[2017-04-05] MEDS: MUPIROCIN OINT 2% 22 GM TUBE SCH ×2 (08:55→22:21)
[2017-04-05] MEDS: Z GUARD REMEDY 2 OZ OINT TP PRN (08:55)
--- NOTE | 2017-04-05 14:30 | NUR ---
GAIL NOTE REPORT GIVEN TO SUDHEER FOR HARRY
--- NOTE | 2017-04-05 19:00 | NUR ---
GREENHOUSE GROWER CLOSING NOTES: NO ACUTE CHANGES NOTED W/IN SHIFT. PT TOLERATED MECH VENT SETTINGS, SATING 100%, NO S/S OF RESP.DISTRESS OR SOB NOTED. F/C AND GT KEPT PATENT INTACT. FIBERSOURCE @30ML/HR, TOLERATED WELL, NO RESIDUAL. SASKIA PICC LINE KEPT PATENT AND INTACT W/ NS @75ML/HR, INFUSING WELL. KEPT WELL RESTED. ALL SAFETY MEASURES IN PLACE AT ALL TIMES, CALL LIGHT WITHIN EASY REACH. ENDORSED TO PM RN FOR HARRY.
--- NOTE | 2017-04-05 20:28 | NUR ---
TELE INITIAL NOTE RECEIVED PT IN BED, OBTUNDED, [facility] AC 14 AC 500 FIO2 40% PEEP 5, SATING 100%, NO S/S OF RESP.DISTRESS OR SOB NOTED AT THIS TIME, PT IS ON TELE MONITOR SHOWING SR @98 BPM, NO S/S OF CHEST PAIN OR DISCOMFORT AT THIS TIME, PT HAS F/C DRAINING URINE TO GRAVITY, PT HAS GTUBE, INTACT/PATENT, FLUSHING WELL, RUNNING FIBERSOURCE @30ML/HR, TOLERATING WELL, PT HAS SASKIA PICC LINE C/D/I/PATENT, FLUSHING WELL, RUNNING NS @75ML/HR, NO S/S OF INFECTION/ INFILTRATION NOTED AT THIS TIME, PT IS NOTED WITH MULTIPLE SKIN ISSUES NOTED, ALL SAFETY MEASURES IN PLACE AT ALL TIMES, CALL LIGHT WITHIN EASY REACH, WILL MONITOR PT CLOSELY FOR CHANGES
[2017-04-05] MEDS: ENOXAPARIN SODIUM 40 MG/0.4 ML DISP.SYRIN SQ SCH (22:06)
[2017-04-06] VITALS (7 sets, daily range): BP systolic 96–111; BP diastolic 61–69
[2017-04-06] MEDS: IPRATROPIUM NEB FS 0.5 MG/2.5 ML AMPUL.NEB IH SCH ×4 (01:05→20:04)
[2017-04-06] MEDS: ALBUTEROL FS 2.5 MG/0.5 ML VIAL.NEB NEB SCH ×4 (01:05→20:04)
[2017-04-06] MEDS: IV NS 0.9% 1,000 ML IV PRN ×2 (03:40→21:28)
[2017-04-06] MEDS: MEROPENEM 1 G in IV NS 0.9% 100 ML IV SCH ×3 (04:35→21:28)
--- NOTE | 2017-04-06 06:15 | NUR ---
TELE CLOSING NOTE ENDORSED PT IN BED, OBTUNDED, [facility] AC 14 AC 500 FIO2 40% PEEP 5, SATING 100%, NO S/S OF RESP.DISTRESS OR SOB NOTED AT THIS TIME, PT IS ON TELE MONITOR SHOWING SR @98 BPM, NO S/S OF CHEST PAIN OR DISCOMFORT AT THIS TIME, PT HAS F/C DRAINING URINE TO GRAVITY, PT HAS GTUBE, INTACT/PATENT, FLUSHING WELL, RUNNING FIBERSOURCE @30ML/HR, TOLERATING WELL, PT HAS SASKIA PICC LINE C/D/I/PATENT, FLUSHING WELL, RUNNING NS @75ML/HR, NO S/S OF INFECTION/ INFILTRATION NOTED AT THIS TIME, PT IS NOTED WITH MULTIPLE SKIN ISSUES NOTED, ALL SAFETY MEASURES IN PLACE AT ALL TIMES, CALL LIGHT WITHIN EASY REACH, WILL MONITOR PT CLOSELY FOR CHANGES
--- NOTE | 2017-04-06 07:15 | NUR ---
TELE INITIAL NOTES: RECEIVED PT ON BED, OBTUNDED, NOT IN ANY FORM DISTRESS. PT ON MECH VENT VIA TRACH (PORTEX 8) W/ FF SETTINGS: AC 14 AC 500 FIO2 45% PEEP 5, SATING 100%. AT THIS TIME, PT IS ON TELE MONITOR, SR 75 BPM. PT HAS F/C DRAINING URINE TO GRAVITY, PT HAS GTUBE, INTACT/PATENT, FLUSHING WELL, RUNNING FIBERSOURCE @30ML/HR, NO RESIDUAL NOTED UPON CHECKING. PT HAS SASKIA PICC LINE C/D/I/PATENT, FLUSHING WELL, NS @75ML/HR, NO S/S OF INFECTION/ INFILTRATION NOTED AT THIS TIME. PROVIDED COMFORT & SAFETY MEASURES. CALL LIGHT WITHIN EASY REACH, WILL MONITOR PT CLOSELY FOR CHANGES.
[2017-04-06] MEDS: PROSOURCE / PROSTAT (PYXIS) 30 ML UDC GT SCH (08:35)
[2017-04-06] MEDS: CHLORHEXIDINE GLUCONATE 15 ML UDC MM SCH ×2 (08:35→17:08)
[2017-04-06] MEDS: ACIDOPHILUS/BULGARICUS 1 EACH TAB.CHEW GT SCH ×3 (08:35→17:08)
[2017-04-06] MEDS: METOPROLOL TARTRATE 25 MG TABLET GT SCH ×2 (08:35→17:00)
[2017-04-06] MEDS: LINEZOLID RTU BAG 600 MG in PREMIX 1 EA IV SCH (08:35)
[2017-04-06] MEDS: MUPIROCIN OINT 2% 22 GM TUBE SCH ×2 (08:36→21:32)
[2017-04-06] MEDS: Z GUARD REMEDY 2 OZ OINT TP PRN (08:36)
--- NOTE | 2017-04-06 19:00 | NUR ---
TRANSFER OPERATOR CLOSING NOTES: NO ACUTE CHANGES NOTED W/IN SHIFT. PT TOLERATED MECH VENT SETTINGS, SATURATING 100%, NO S/S OF RESP DISTRESS OR SOB NOTED. F/C AND GT KEPT PATENT INTACT. FIBERSOURCE @30ML/HR, TOLERATED WELL, NO RESIDUAL W/IN SHIFT. SASKIA PICC LINE KEPT PATENT AND INTACT W/ NS @75ML/HR, INFUSING WELL. KEPT WELL RESTED. ALL SAFETY MEASURES IN PLACE AT ALL TIMES, CALL LIGHT WITHIN EASY REACH. FAMILY AT BEDSIDE. ENDORSED TO PM RN FOR HARRY.
--- NOTE | 2017-04-06 19:50 | NUR ---
TELE INITIAL NOTE RECEIVED PT IN BED, OBTUNDED, [facility] PORTEX #8 AC 14 AC 500 FIO2 40% PEEP 5, SATING 100%, NO S/S OF RESP.DISTRESS OR SOB NOTED AT THIS TIME, PT IS ON TELE MONITOR SHOWING SR @98 BPM, NO S/S OF CHEST PAIN OR DISCOMFORT AT THIS TIME, PT HAS F/C DRAINING URINE TO GRAVITY, PT HAS GTUBE, INTACT/PATENT, FLUSHING WELL, RUNNING FIBERSOURCE @30ML/HR, TOLERATING WELL, PT HAS SASKIA PICC LINE C/D/I/PATENT, FLUSHING WELL, RUNNING NS @75ML/HR, NO S/S OF INFECTION/ INFILTRATION NOTED AT THIS TIME, PT IS NOTED WITH MULTIPLE SKIN ISSUES NOTED, ALL SAFETY MEASURES IN PLACE AT ALL TIMES, CALL LIGHT WITHIN EASY
[2017-04-06] MEDS: ENOXAPARIN SODIUM 40 MG/0.4 ML DISP.SYRIN SQ SCH (21:30)
[2017-04-06] MEDS: LINEZOLID 600 MG TABLET GT SCH (21:32)
[2017-04-06] MEDS: FIBERSOURCE HN 1,000 ML BOTTLE GT PRN (21:36)
[2017-04-07] VITALS: BP 95/55
[2017-04-07] MEDS: ALBUTEROL FS 2.5 MG/0.5 ML VIAL.NEB NEB SCH ×2 (01:16→07:52)
[2017-04-07] MEDS: IPRATROPIUM NEB FS 0.5 MG/2.5 ML AMPUL.NEB IH SCH ×2 (01:16→07:52)
[2017-04-07 04:00] VITALS: BP 92/58
[2017-04-07] MEDS: MEROPENEM 1 G in IV NS 0.9% 100 ML IV SCH ×2 (04:36→11:29)
[2017-04-07 06:43] LABS: BASOPHILS % (AUTO) 0.7 % (0.0-2.0); EOSINOPHILS # (AUTO) 0.3 /CMM (0.0-0.7); EOSINOPHILS % (AUTO) 6.7 % (0.0-6.0); HEMATOCRIT 32 % (39-51); HEMOGLOBIN 10.6 g/dL (13.5-17.5); LYMPHOCYTES # (AUTO) 1.2 /CMM (0.8-4.8); LYMPHOCYTES % (AUTO) 24.2 % (20.0-44.0); MEAN CORPUSCULAR HEMOGLOBIN 27 PG (26.0-33.0); MEAN CORPUSCULAR HGB CONC 33 g/dl (31.0-36.0); MEAN CORPUSCULAR VOLUME 80 fL (80-96); MONOCYTES # (AUTO) 0.3 /CMM (0.1-1.30); NEUTROPHILS # (AUTO) 3.1 /CMM (1.8-8.9); NEUTROPHILS % (AUTO) 62.4 % (43.0-81.0); PLATELET COUNT (AUTO) 398 /CMM (150-450); RDW COEFFICIENT OF VARIATION 21.3 (11.5-15.0); RED BLOOD CELL COUNT(AUTO) 3.98 MIL/uL (4.5-6.0); WHITE BLOOD COUNT (AUTO) 4.9 K/uL (4.3-11.0)
--- NOTE | 2017-04-07 06:49 | NUR ---
TELE CLOSING NOTE ENDORSED PT IN BED, OBTUNDED, [facility] AC 14 AC 500 FIO2 40% PEEP 5, SATING 100%, NO S/S OF RESP.DISTRESS OR SOB NOTED AT THIS TIME, PT IS ON TELE MONITOR SHOWING SR @98 BPM, NO S/S OF CHEST PAIN OR DISCOMFORT AT THIS TIME, PT HAS F/C DRAINING URINE TO GRAVITY, PT HAS GTUBE, INTACT/PATENT, FLUSHING WELL, RUNNING FIBERSOURCE @30ML/HR, TOLERATING WELL, PT HAS SASKIA PICC LINE C/D/I/PATENT, FLUSHING WELL, RUNNING NS @75ML/HR, NO S/S OF INFECTION/ INFILTRATION NOTED AT THIS TIME, PT IS NOTED WITH MULTIPLE SKIN ISSUES NOTED, ALL SAFETY MEASURES IN PLACE AT ALL TIMES, CALL LIGHT WITHIN EAS
[2017-04-07 07:19] LABS: CALCIUM, SERUM 8.6 mg/dL (8.5-10.1); CREATININE 0.2 mg/dL (0.6-1.3); MAGNESIUM 1.7 mg/dL (1.8-2.4); PHOSPHORUS 2.5 mg/dL (2.5-4.9); POTASSIUM 3.9 mmol/L (3.5-5.1)
--- NOTE | 2017-04-07 07:30 | NUR ---
RN NOTES RECEIVED PT IN BED, OBTUNDED, [facility] AC 14 AC 500 FIO2 40% PEEP 5, SATING 100%, NO S/S OF RESP.DISTRESS OR SOB NOTED AT THIS TIME, PT IS ON TELE MONITOR SHOWING SR, NO S/S OF DISCOMFORT AT THIS TIME, PT HAS F/C DRAINING URINE TO GRAVITY, PT HAS GTUBE, INTACT/PATENT, FLUSHING WELL, RUNNING FIBERSOURCE @30ML/HR, TOLERATING WELL,NO RESIDUAL NOTED. PT HAS SASKIA PICC LINE C/D/I/PATENT, FLUSHING WELL, RUNNING NS @75ML/HR, NO S/S OF INFECTION/ INFILTRATION NOTED AT THIS TIME, REPOSITIONED FOR COMFORT, ALL SAFETY MEASURES IN PLACE AT ALL TIMES, CALL LIGHT WITHIN REACH
[2017-04-07 08:00] VITALS: BP 97/68
[2017-04-07 08:11] LABS: EOSINOPHILS % (MANUAL) 6 % (0-4); LYMPHOCYTES % (MANUAL) 21 % (16-48); MONOCYTES % (MANUAL) 11 % (0-11.0); NEUTROPHILS % (MANUAL) 62 (42-76)
[2017-04-07] MEDS ORDERED: MERO500V IV (08:32)
[2017-04-07 08:39] VITALS: BP 93/56
[2017-04-07] MEDS: METOPROLOL TARTRATE 25 MG TABLET GT SCH (08:39)
[2017-04-07] MEDS: LINEZOLID 600 MG TABLET GT SCH (08:40)
[2017-04-07] MEDS: ACIDOPHILUS/BULGARICUS 1 EACH TAB.CHEW GT SCH (08:40)
[2017-04-07] MEDS: CHLORHEXIDINE GLUCONATE 15 ML UDC MM SCH (08:40)
[2017-04-07] MEDS: MUPIROCIN OINT 2% 22 GM TUBE SCH (08:41)
[2017-04-07] MEDS: PROSOURCE / PROSTAT (PYXIS) 30 ML UDC GT SCH (08:46)
[2017-04-07] MEDS ORDERED: Magnesium 1GM/D5W 100ML PREMIX 100 ML IV SCH (11:30)
--- NOTE | 2017-04-07 12:15 | NUR ---
RN NOTES PT DISCHARGED FROM UNIT IN STABLE CONDITION. VS WNL. ALL DISCHARGE INSTRUCTIONS GIVEN, EXITCARE PROVIDED. TRANSPORTED TO [facility] VIA AMBULANCE ACCOMPANIED BY W EMT AND RT. PAPERWORK GIVEN. REPORT GIVEN TO NURSE MALDONADO FOR CONTINUITY OF CARE
== END 2017-04-07 11:52 | DRG 137 ==
LOC: ER 21:21 → TELE-TD 23:59 → TELE1 04-05 13:37
PROVIDERS: ADMIT Nurse Practitioner Acute Care; ATTEND Nurse Practitioner Acute Care
PROC: 5A1945Z Respiratory Ventilation, 24-96 Consecutive Hours (ICD-10-PCS; principal; 2017-04-04)
PROC: 02HV33Z Insertion of Infusion Device into Superior Vena Cava, Percutaneous Approach (ICD-10-PCS; principal; 2017-04-04)
DX: J95.851 Ventilator associated pneumonia (principal); N17.0 Acute kidney failure with tubular necrosis; G12.21 Amyotrophic lateral sclerosis; A41.9 Sepsis, unspecified organism; E43 Unspecified severe protein-calorie malnutrition; J15.9 Unspecified bacterial pneumonia; J96.11 Chronic respiratory failure with hypoxia; Z99.11 Dependence on respirator [ventilator] status; R53.2 Functional quadriplegia; Z93.0 Tracheostomy status; R13.10 Dysphagia, unspecified; Z93.1 Gastrostomy status; Z88.1 Allergy status to other antibiotic agents; Z79.899 Other long term (current) drug therapy; N39.0 Urinary tract infection, site not specified; B96.89 Other specified bacterial agents as the cause of diseases classified elsewhere; Z16.24 Resistance to multiple antibiotics; E86.0 Dehydration; D64.9 Anemia, unspecified; E87.6 Hypokalemia; K21.9 Gastro-esophageal reflux disease without esophagitis; D68.59 Other primary thrombophilia; Y84.9 Medical procedure, unspecified as the cause of abnormal reaction of the patient, or of later complication, without mention of misadventure at the time of the procedure; Y80 Physical medicine devices associated with adverse incidents; Y92.129 Unspecified place in nursing home as the place of occurrence of the external cause; Z68.1 Body mass index [BMI] 19.9 or less, adult
CPT/HCPCS: 31720; 36415; 36600; 71010-TC; 80048-TC; 80061-TC; 80076-TC; 81000-TC; 83605-TC; 83735-TC; 84100-TC; 84443-TC; 84484-TC; 85025-TC; 85730-TC; 87040-TC; 87081-TC; 87086-TC; 87186-TC; 94002-TC; 94003-TC; 94762-TC; 99082-TC; A4216; A4606; J1650; J1956; J2020; J2185; J2543; J3475; J7030; J7060; Z7610

== ENCOUNTER 2017-07-13 19:50 | Inpatient (IN) | payer OTHER ==
[~2017-07-13] VITALS: Ht 162.6 cm; Wt 57.6 kg
[~2017-07-13 19:50] MED LIST changes: +MERO500V IV
--- NOTE | 2017-07-13 19:55 | NUR ---
TO BED 1 A 26 YO MALE PATIENT PT BIBA#78 FROM [facility] FOR HIGH HR AND FEVER X 1 DAY. PATIENT IS OBTUNDED, WITH TRACH TO [facility] VENT; RT AT BEDSIDE. PLACED PATIENT ON CARDIAC AND VS MONITORING. KEPT HOB ELEVATED. COMFORT AND COOLING MEASURES RENDERED. DR WEBB AT BEDSIDE TO [facility].
[2017-07-13] MEDS ORDERED: ACETAMINOPHEN 650 MG/SUPP.RECT RC ONE ×2 (20:00→20:12)
[2017-07-13] MEDS ORDERED: IV NS 0.9% 1,000 ML BAG IV ONE (20:00)
[2017-07-13] MEDS ORDERED: PIPERACILLIN /TAZOBACTAM 3.375 G in IV D5W 50 ML IV ONE (20:00)
[2017-07-13] MEDS ORDERED: LEVOFLOXACIN 750 MG /D5W 150ML 150 ML IV ONE ×2 (20:00→20:12)
[2017-07-13 20:05] VITALS: BP 130/95
--- NOTE | 2017-07-13 20:08 | NUR ---
XR AT BEDSIDE.
[2017-07-13] MEDS ORDERED: PIPERACILLIN /TAZOBACTAM 3.375 G VIAL IV ONE (20:12)
--- NOTE | 2017-07-13 20:15 | NUR ---
PHLEBOTOMISTS AT BEDSIDE TO DRAW BLOOD.
[2017-07-13 20:44] LABS: BASOPHILS % (AUTO) 0.1 % (0.0-2.0); HEMATOCRIT 45 % (39-51); HEMOGLOBIN 14.3 g/dL (13.5-17.5); LYMPHOCYTES # (AUTO) 0.8 /CMM (0.8-4.8); LYMPHOCYTES % (AUTO) 3.9 % (20.0-44.0); MEAN CORPUSCULAR HEMOGLOBIN 26 PG (26.0-33.0); MEAN CORPUSCULAR HGB CONC 32 g/dl (31.0-36.0); MEAN CORPUSCULAR VOLUME 82 fL (80-96); MONOCYTES # (AUTO) 0.6 /CMM (0.1-1.30); MONOCYTES % (AUTO) 3.1 % (2.0-12.0); NEUTROPHILS # (AUTO) 18.9 /CMM (1.8-8.9); NEUTROPHILS % (AUTO) 92.9 % (43.0-81.0); PLATELET COUNT (AUTO) 372 /CMM (150-450); RDW COEFFICIENT OF VARIATION 18.4 (11.5-15.0); RED BLOOD CELL COUNT(AUTO) 5.45 MIL/uL (4.5-6.0); WHITE BLOOD COUNT (AUTO) 20.3 K/uL (4.3-11.0)
[2017-07-13 20:47] LABS: APPEARANCE,URINE Slightly Cloudy (CLEAR); BILIRUBIN,URINE SMALL (NEGATIVE); BLOOD, URINE Moderate Ery/uL (NEGATIVE); COLOR,URINE Yellow (YELLOW); KETONES,URINE Negative (NEGATIVE); LEUKOCYTE ESTERASE ,URINE Large (NEGATIVE); NITRITE, URINE Negative (NEGATIVE); PROTEIN,URINE 100 mg/dl (NEGATIVE); UGLUCOSE Negative (NEGATIVE)
[2017-07-13 20:54] LABS: CALCIUM, SERUM 8.2 mg/dL (8.5-10.1); CARBON DIOXIDE 20 mmol/L (21-32); CHLORIDE 111 mmol/L (98-107); CREATININE 0.3 mg/dL (0.6-1.3); GLUCOSE 124 mg/dL (74-106); POTASSIUM 4.1 mmol/L (3.5-5.1); SODIUM SERUM 141 mmol/L (136-145); UREA NITROGEN, BLOOD 19 mg/dL (7-18)
--- NOTE | 2017-07-13 20:57 | NUR ---
CALLED NURSE SUP FOR ICU BED
[2017-07-13 20:59] LABS: BACTERIA,URINE 3+ /HPF (None Seen); SQUAMOUS EPITHELIAL CELL,UR None Seen /HPF (None Seen); WBC,URINE 81-100 /HPF (0-3)
[2017-07-13 20:59] LABS: ALANINE AMINOTRANSFERASE 31 U/L (12-78); ALBUMIN 2.5 g/dL (3.4-5.0); ALKALINE PHOSPHATASE 70 U/L (46-116); ASPARTATE AMINOTRANSFERASE 25 U/L (15-37); BILIRUBIN,DIRECT 1.3 mg/dL (0.0-0.2); BILIRUBIN,TOTAL 1.8 mg/dL (0.2-1.0); TOTAL PROTEIN, SERUM 7.6 g/dL (6.4-8.2)
[2017-07-13 21:02] LABS: TROPONIN I < 0.017 ng/mL (0.00-0.056)
[2017-07-13 21:13] LABS: INR 1.1 (0.87-1.13); PROTHROMBIN TIME 11.4 SECS (9.5-12.7)
[2017-07-13 21:14] LABS: BAND % (MANUAL) 7 % (0.0-5.0); NEUTROPHILS % (MANUAL) 88 (42-76)
[2017-07-13 21:15] LABS: BASOPHILS % (MANUAL) 0 % (0.0-2.0); EOSINOPHILS % (MANUAL) 0 % (0-4); LYMPHOCYTES % (MANUAL) 4 % (16-48); MONOCYTES % (MANUAL) 1 % (0-11.0)
--- NOTE | 2017-07-13 21:25 | NUR ---
MOTHER AT BEDSIDE.
--- NOTE | 2017-07-13 21:27 | NUR ---
MOTHER AT BEDSIDE.
--- NOTE | 2017-07-13 21:28 | NUR ---
PAGED EPIC FOR PANEL - MACHINE CLOTH MEASURER CARL SANTILLAN
--- NOTE | 2017-07-13 22:00 | NUR ---
REPORT GIVEN TO ED RN FOR ICU ADMISSION AND HARRY.
--- NOTE | 2017-07-13 22:09 | NUR ---
TRANSFERRED PATIENT TO ICU FLOOR VIA ALS PROTOCOL, NO INCIDENT NOTED.
[2017-07-13 22:13] VITALS: BP 114/72
[2017-07-13 22:30] VITALS: BP 114/70
[2017-07-13] MEDS ORDERED: IPRATROPIUM NEB FS 0.5 MG/2.5 ML AMPUL.NEB NEB PRN (22:30)
[2017-07-13] MEDS ORDERED: METOPROLOL TARTRATE 25 MG TABLET GT SCH (22:30)
[2017-07-13] MEDS ORDERED: ALBUTEROL FS 2.5 MG/0.5 ML VIAL.NEB NEB PRN (22:30)
[2017-07-13] MEDS ORDERED: BISACODYL SUPP (10 MG) 10 MG/SUPP.RECT SUPP.RECT RC PRN (22:30)
[2017-07-13] MEDS ORDERED: ENOXAPARIN SODIUM 40 MG/0.4 ML DISP.SYRIN SQ SCH (22:30)
[2017-07-13] MEDS ORDERED: ONDANSETRON HCL/PF 4 MG/2 ML VIAL IVP PRN (22:30)
[2017-07-13] MEDS ORDERED: ACETAMINOPHEN 325 MG TABLET MC PRN (22:30)
[2017-07-13] MEDS ORDERED: MAGNESIUM HYDROXIDE 30 ML UDC GT PRN (22:30)
[2017-07-13 23:00] VITALS: BP 112/70
[2017-07-13] MEDS ORDERED: MEROPENEM 500 MG VIAL IV ONE (23:30)
[2017-07-13] MEDS: IPRATROPIUM NEB FS 0.5 MG/2.5 ML AMPUL.NEB NEB SCH (23:30)
[2017-07-13] MEDS ORDERED: ENOXAPARIN SODIUM 40 MG/0.4 ML DISP.SYRIN SQ ONE (23:30)
[2017-07-13] MEDS: ALBUTEROL FS 2.5 MG/0.5 ML VIAL.NEB NEB SCH (23:30)
[2017-07-13] MEDS: MEROPENEM 500 MG in IV NS 0.9% 50 ML IV SCH (23:31)
[2017-07-13] MEDS: IV NS 0.9% 1,000 ML IV PRN (23:35)
[2017-07-13 23:37] VITALS: BP 107/95
[2017-07-14] VITALS (49 sets, daily range): BP systolic 101–127; BP diastolic 63–84
[2017-07-14] MEDS ORDERED: METOPROLOL TARTRATE INJ 5 MG/5 ML AMPUL ONE (03:19)
[2017-07-14] MEDS: IPRATROPIUM NEB FS 0.5 MG/2.5 ML AMPUL.NEB NEB SCH ×6 (03:19→23:15)
[2017-07-14] MEDS: ALBUTEROL FS 2.5 MG/0.5 ML VIAL.NEB NEB SCH ×6 (03:20→23:15)
[2017-07-14] MEDS: METOPROLOL TARTRATE INJ 5 MG/5 ML AMPUL IVP PRN (03:24)
[2017-07-14] MEDS ORDERED: MEROPENEM 500 MG VIAL IV ONE (04:28)
[2017-07-14] MEDS: MEROPENEM 500 MG in IV NS 0.9% 50 ML IV SCH ×3 (05:00→21:04)
[2017-07-14 05:01] LABS: BASOPHILS % (AUTO) 0.1 % (0.0-2.0); EOSINOPHILS % (AUTO) 0.1 % (0.0-6.0); HEMATOCRIT 45 % (39-51); HEMOGLOBIN 14.4 g/dL (13.5-17.5); LYMPHOCYTES # (AUTO) 0.8 /CMM (0.8-4.8); LYMPHOCYTES % (AUTO) 4.1 % (20.0-44.0); MEAN CORPUSCULAR HEMOGLOBIN 27 PG (26.0-33.0); MEAN CORPUSCULAR HGB CONC 32 g/dl (31.0-36.0); MEAN CORPUSCULAR VOLUME 82 fL (80-96); MONOCYTES # (AUTO) 0.8 /CMM (0.1-1.30); NEUTROPHILS # (AUTO) 18.1 /CMM (1.8-8.9); NEUTROPHILS % (AUTO) 91.7 % (43.0-81.0); PLATELET COUNT (AUTO) 339 /CMM (150-450); RDW COEFFICIENT OF VARIATION 19.3 (11.5-15.0); RED BLOOD CELL COUNT(AUTO) 5.43 MIL/uL (4.5-6.0); WHITE BLOOD COUNT (AUTO) 19.7 K/uL (4.3-11.0)
[2017-07-14 05:32] LABS: THYROID STIMULATING HORMONE 0.258 uIU/mL (0.358-3.74)
[2017-07-14 05:34] LABS: ALBUMIN 2.1 g/dL (3.4-5.0); BILIRUBIN,TOTAL 2.3 mg/dL (0.2-1.0); CALCIUM, SERUM 8.4 mg/dL (8.5-10.1); CREATININE 0.3 mg/dL (0.6-1.3); MAGNESIUM 1.9 mg/dL (1.8-2.4); PHOSPHORUS 2.2 mg/dL (2.5-4.9); POTASSIUM 3.4 mmol/L (3.5-5.1)
--- NOTE | 2017-07-14 05:45 | NUR ---
COLLEGE FOOTBALL COACH PT WAS ADMITTED FROM ER WITH DIAGNOSIS RESPIRATORY FAILURE, PNA, UTI, SEPSIS. PT HAS HISTORY OF ALS. NS BOLUS 1800 ML GIVEN IN ER. STARTED MULTIPLE ANTIBIOTICS IVPB. PT IS OBTUNDED. TRACH-PORTEX # 9. VENTILATOR-AC 14, TV-500, FIO2-40%, PEEP 5. PT IS OBTUNDED, DOES NOT RESPONSE TO ANY STIMULI, EXTREMITIES ARE FLACCID. BILATERAL RHONCHI. SCOPE-ST WITH HR UP TO 150. METOPROLOL 5 MG IV PRN GIVEN. BP IS STABLE, AFEBRILE. PEG CLAMPED. F/C DRAINS SUFFICIENT AMT. OF URINE. NO BM.
[2017-07-14] MEDS ORDERED: IPRATROPIUM NEB FS 0.5 MG/2.5 ML AMPUL.NEB ONE (07:34)
[2017-07-14] MEDS ORDERED: ALBUTEROL FS 2.5 MG/0.5 ML VIAL.NEB ONE (07:34)
[2017-07-14] MEDS ORDERED: FIBERSOURCE HN 1,000 ML BOTTLE GT PRN ×2 (09:00→11:30)
[2017-07-14] MEDS: METOCLOPRAMIDE HCL 10 MG/10 ML UDC GT SCH ×3 (09:04→16:08)
[2017-07-14] MEDS: CHLORHEXIDINE GLUCONATE 15 ML UDC MM SCH ×2 (09:04→16:08)
[2017-07-14] MEDS: MULTIVITAMINS,THERAGRAN 1 UDTAB TABLET PO SCH (09:04)
[2017-07-14] MEDS: DOCUSATE SODIUM LIQ 100 MG/10 ML UDC GT SCH ×2 (09:04→16:08)
[2017-07-14] MEDS: METOPROLOL TARTRATE 25 MG TABLET GT SCH ×2 (09:05→16:08)
[2017-07-14] MEDS: Z GUARD REMEDY 2 OZ OINT TP PRN (09:18)
[2017-07-14] MEDS: LACTOBACILLUS RHAMNOSUS GG 1 EACH CAP.SPRINK PO SCH ×2 (09:19→16:08)
[2017-07-14] MEDS: FAMOTIDINE (20 MG) 20 MG TABLET GT SCH (09:19)
[2017-07-14] MEDS: POLYVINYL ALCOHOL 15 ML BOTTLE EACHEYE SCH ×2 (09:19→16:09)
[2017-07-14] MEDS ORDERED: POTASSIUM CHLORIDE 20 MEQ POWDER PACKET NG SCH (10:30)
[2017-07-14] MEDS ORDERED: IV NS 0.9% 1,000 ML IV PRN (11:00)
[2017-07-14] MEDS ORDERED: VANCOMYCIN 1 GM in IV D5W 250 ML IV SCH (11:30)
[2017-07-14] MEDS ORDERED: K PHOS NEUTRAL 250 MG TABLET PO ONE (11:30)
[2017-07-14] MEDS: IV NS 0.9% 1,000 ML IV PRN ×2 (12:02→21:08)
--- NOTE | 2017-07-14 15:49 | NUR ---
CHILDCARE ATTENDANT NOTE 0720: Received patient obtunded. With trache to vent, tolerated settings well. ST >140's. In ICU for ST, temp 98.0 orally at this time. On ATB therapy for Sepsis secondary to UTI and HCAP. Noted with thin to thick white to more secretions when suctioned. GT intact, clamped. SASKIA PICC Intact, IVF infusing as ordered. Degroot cath intact, noted with dark eliud colored urine drained to BSD. 1030: S/E by Dr. Cisneros still ST 140's, with order to start on GT feeding and give 1L bolus x1. 1200: Started on GT feeding at 10ML/HR secondary to 150 ML brown residuals, patient on Reglan. Will increment as able. 1210: S/E by Dr. Omalley, no new orders at this time.
--- NOTE | 2017-07-14 20:34 | NUR ---
RN:ICU: PT RECEIVED IN BED ON VENT WITHOUT DISTRESS. PT HR 140'S ST ON BEDSIDE MONITOR. MD AWARE. PT HAS HX OF ALS THEREFORE HE IS UNABLE TO SHOW MANY S/S OF PAIN EXCEPT HIS VITAL SIGNS. WILL MEDICATE PER MD ORDERS. PT RESIDUALS CONTINUE TO BE >100. TF PLACED ON HOLD AND ASPIRATION PRECAUTIONS IMPLEMENTED. WILL CONTINUE TO MONITOR CLOSELY.
[2017-07-14] MEDS ORDERED: LINEZOLID RTU BAG 300 ML IV ONE (20:54)
[2017-07-14] MEDS ORDERED: LEVOFLOXACIN 500 MG /D5W 100ML 100 ML IV ONE (20:57)
[2017-07-14] MEDS ORDERED: LEVOFLOXACIN 500 MG /D5W 100ML 500 MG in PREMIX 1 EA IV SCH (21:00)
[2017-07-14] MEDS: LINEZOLID RTU BAG 600 MG in PREMIX 1 EA IV SCH (21:04)
[2017-07-14] MEDS: ENOXAPARIN SODIUM 40 MG/0.4 ML DISP.SYRIN SQ SCH (21:05)
[2017-07-15] VITALS (27 sets, daily range): BP systolic 101–129; BP diastolic 58–79
[2017-07-15] MEDS: IPRATROPIUM NEB FS 0.5 MG/2.5 ML AMPUL.NEB NEB SCH ×5 (03:07→19:56)
[2017-07-15] MEDS: ALBUTEROL FS 2.5 MG/0.5 ML VIAL.NEB NEB SCH ×5 (03:07→19:55)
[2017-07-15] MEDS: METOPROLOL TARTRATE INJ 5 MG/5 ML AMPUL IVP PRN (03:57)
[2017-07-15 04:53] LABS: BASOPHILS % (AUTO) 0.1 % (0.0-2.0); HEMATOCRIT 34 % (39-51); HEMOGLOBIN 11.1 g/dL (13.5-17.5); LYMPHOCYTES # (AUTO) 1.1 /CMM (0.8-4.8); LYMPHOCYTES % (AUTO) 6.7 % (20.0-44.0); MEAN CORPUSCULAR HEMOGLOBIN 27 PG (26.0-33.0); MEAN CORPUSCULAR HGB CONC 33 g/dl (31.0-36.0); MEAN CORPUSCULAR VOLUME 82 fL (80-96); MONOCYTES # (AUTO) 0.9 /CMM (0.1-1.30); MONOCYTES % (AUTO) 5.6 % (2.0-12.0); NEUTROPHILS # (AUTO) 14.3 /CMM (1.8-8.9); NEUTROPHILS % (AUTO) 87.6 % (43.0-81.0); PLATELET COUNT (AUTO) 247 /CMM (150-450); RDW COEFFICIENT OF VARIATION 19.5 (11.5-15.0); RED BLOOD CELL COUNT(AUTO) 4.11 MIL/uL (4.5-6.0); WHITE BLOOD COUNT (AUTO) 16.3 K/uL (4.3-11.0)
[2017-07-15 05:15] LABS: CALCIUM, SERUM 8.8 mg/dL (8.5-10.1); CREATININE 0.2 mg/dL (0.6-1.3); MAGNESIUM 1.7 mg/dL (1.8-2.4); PHOSPHORUS 1.8 mg/dL (2.5-4.9); POTASSIUM 3.2 mmol/L (3.5-5.1)
[2017-07-15] MEDS: MEROPENEM 500 MG in IV NS 0.9% 50 ML IV SCH ×3 (05:32→20:56)
--- NOTE | 2017-07-15 07:00 | NUR ---
ICU INITIAL NOTE- RECEIVED REPORT FROM BRANDI FLOR, RECEIVED PT OBTUNDED, ON [facility] VENT PORTEX #9 AC 14 TV 500 FIO2 40% PEEP 5, SATING WELL, BREATHING IS UNLABORED AND EVEN, NO S/S OF RESP.DISTRESS OR SOB NOTED AT THIS TIME, PT IS BEDSIDE MONITOR SHOWING ST @ 107 BPM, NO S/S OF CHEST PAIN OR DISCOMFORT NOTED AT THIS TIME, PT HAS F/C DRAINING BHANU URINE TO GRAVITY, PT HAS GTUBE, C/D/I/PATENT, FLUSHING WELL, CLAMPED AT THIS TIME D/T HIGH RESIDUALS, PT HAS SASKIA PICC- RUNNING NS @ 100ML/HR, C/D/I/PATENT, FLUSHING WELL, NO S/S OF INFECTION/ INFILTRATION NOTED AT THIS TIME, PT IS NOTED WITH MULTIPLE SKIN ISSUES, ALL SAFETY MEASURES IN PLACE AT ALL TIMES, CALL LIGHT WITHIN EASY REACH, ISOLATION PRECAUTIONS OBSERVED AT ALL TIMES, WILL MONITOR PT CLOSELY FOR CHANGES
[2017-07-15] MEDS ORDERED: LACTOBACILLUS RHAMNOSUS GG 1 EACH CAP.SPRINK PO SCH (09:00)
[2017-07-15] MEDS: POLYVINYL ALCOHOL 15 ML BOTTLE EACHEYE SCH ×2 (09:21→16:47)
[2017-07-15] MEDS: METOCLOPRAMIDE HCL 10 MG/10 ML UDC GT SCH ×3 (09:22→16:46)
[2017-07-15] MEDS: FAMOTIDINE (20 MG) 20 MG TABLET GT SCH (09:22)
[2017-07-15] MEDS: METOPROLOL TARTRATE 25 MG TABLET GT SCH ×2 (09:22→16:47)
[2017-07-15] MEDS: CHLORHEXIDINE GLUCONATE 15 ML UDC MM SCH ×2 (09:22→16:46)
[2017-07-15] MEDS: MULTIVITAMINS,THERAGRAN 1 UDTAB TABLET PO SCH (09:22)
[2017-07-15] MEDS: ASCORBIC ACID 500 MG TABLET GT SCH (09:22)
[2017-07-15] MEDS: DOCUSATE SODIUM LIQ 100 MG/10 ML UDC GT SCH ×2 (09:22→16:46)
[2017-07-15] MEDS: LACTOBACILLUS RHAMNOSUS GG 1 EACH CAP.SPRINK PO SCH ×2 (09:22→16:47)
--- NOTE | 2017-07-15 09:22 | NUR ---
ICU NOTE- MEDICATION UNABLE TO SCAN NO SCANNER AT THIS TIME DR. WREN MADE ROUNDS AWARE OF ALL LABS AND TEST RESULTS
[2017-07-15] MEDS: LINEZOLID RTU BAG 600 MG in PREMIX 1 EA IV SCH ×2 (10:32→21:57)
[2017-07-15] MEDS: IV NS 0.9% 1,000 ML IV PRN (10:33)
[2017-07-15] MEDS ORDERED: NEUTRA PHOS 1 POWD.PACKET NG ONE (11:30)
[2017-07-15] MEDS: POTASSIUM CHLORIDE 20 MEQ POWDER PACKET GT SCH ×2 (11:36→12:51)
[2017-07-15] MEDS: Magnesium 1GM/D5W 100ML PREMIX 100 ML IV SCH ×2 (11:36→12:50)
[2017-07-15] MEDS: Z GUARD REMEDY 2 OZ OINT TP PRN (16:48)
--- NOTE | 2017-07-15 19:29 | NUR ---
tele closing note- all medications and orders carried out, all treatments carried out, pt kept clean and dry, pt turned and repositioned, ivf infusing. report given to glynn for gracia
[2017-07-15] MEDS: ENOXAPARIN SODIUM 40 MG/0.4 ML DISP.SYRIN SQ SCH (21:03)
[2017-07-16] VITALS (7 sets, daily range): BP systolic 90–113; BP diastolic 36–65
[2017-07-16] MEDS: ALBUTEROL FS 2.5 MG/0.5 ML VIAL.NEB NEB SCH ×6 (00:06→20:01)
[2017-07-16] MEDS: IPRATROPIUM NEB FS 0.5 MG/2.5 ML AMPUL.NEB NEB SCH ×6 (00:06→20:01)
[2017-07-16] MEDS: IV NS 0.9% 1,000 ML IV PRN ×2 (02:00→18:09)
[2017-07-16] MEDS: MEROPENEM 500 MG in IV NS 0.9% 50 ML IV SCH ×3 (05:36→20:46)
--- NOTE | 2017-07-16 07:07 | NUR ---
RN CLOSING NOTE PT REMAINS IN NO ACUTE DISTRESS IN BED. PT DID NOT HAVE ANY SIGNIFICANT CHANGE IN CONDITION DURING SHIFT. ALL NEEDS MET, ALL ORDERS CARRIED OUT. PT TOLERATED VENT SETTING WELL. WILL ENDORSE CARE TO AM RN FOR CONTINUITY OF CARE.
--- NOTE | 2017-07-16 07:48 | NUR ---
RN NOTES: PT RECEIVED ASLEEP, RESPONSIVE TO TACTILE STIMULI, OBTUNDED. ON VENT -TRAC, SETTINGS TOLERATING WELL. NO RESPIRATORY DISTRESS NOTED. HOB elevated. G-tube residual 280ml, dark greenish color. continue to hold tube feeding. SASKIA picc line intact, dressing clean & dry, able to flush with no blood return. Continue to monitor body temperature. safety measures observed. pressure points offloaded. will continue to monitor.
[2017-07-16 07:58] LABS: EOSINOPHILS # (AUTO) 0.1 /CMM (0.0-0.7); EOSINOPHILS % (AUTO) 1.2 % (0.0-6.0); HEMATOCRIT 29 % (39-51); HEMOGLOBIN 9.7 g/dL (13.5-17.5); LYMPHOCYTES # (AUTO) 0.9 /CMM (0.8-4.8); LYMPHOCYTES % (AUTO) 7.9 % (20.0-44.0); MEAN CORPUSCULAR HEMOGLOBIN 27 PG (26.0-33.0); MEAN CORPUSCULAR HGB CONC 34 g/dl (31.0-36.0); MEAN CORPUSCULAR VOLUME 82 fL (80-96); MONOCYTES # (AUTO) 0.7 /CMM (0.1-1.30); MONOCYTES % (AUTO) 5.6 % (2.0-12.0); NEUTROPHILS # (AUTO) 10.1 /CMM (1.8-8.9); NEUTROPHILS % (AUTO) 85.3 % (43.0-81.0); PLATELET COUNT (AUTO) 183 /CMM (150-450); RDW COEFFICIENT OF VARIATION 19.5 (11.5-15.0); RED BLOOD CELL COUNT(AUTO) 3.54 MIL/uL (4.5-6.0); WHITE BLOOD COUNT (AUTO) 11.9 K/uL (4.3-11.0)
[2017-07-16 08:26] LABS: CALCIUM, SERUM 8.3 mg/dL (8.5-10.1); CREATININE 0.2 mg/dL (0.6-1.3); MAGNESIUM 1.8 mg/dL (1.8-2.4); PHOSPHORUS 2.1 mg/dL (2.5-4.9); POTASSIUM 3.5 mmol/L (3.5-5.1)
[2017-07-16] MEDS: METOCLOPRAMIDE HCL 10 MG/10 ML UDC GT SCH ×2 (09:02→12:32)
[2017-07-16] MEDS: LINEZOLID RTU BAG 600 MG in PREMIX 1 EA IV SCH ×2 (09:02→21:32)
[2017-07-16] MEDS: LACTOBACILLUS RHAMNOSUS GG 1 EACH CAP.SPRINK PO SCH ×2 (09:03→18:09)
[2017-07-16] MEDS: FAMOTIDINE (20 MG) 20 MG TABLET GT SCH (09:03)
[2017-07-16] MEDS: ASCORBIC ACID 500 MG TABLET GT SCH (09:03)
[2017-07-16] MEDS: DOCUSATE SODIUM LIQ 100 MG/10 ML UDC GT SCH ×2 (09:03→17:00)
[2017-07-16] MEDS: MULTIVITAMINS,THERAGRAN 1 UDTAB TABLET PO SCH (09:03)
[2017-07-16] MEDS: CHLORHEXIDINE GLUCONATE 15 ML UDC MM SCH ×2 (09:03→18:07)
[2017-07-16] MEDS: METOPROLOL TARTRATE 25 MG TABLET GT SCH ×2 (09:04→18:08)
[2017-07-16] MEDS: POLYVINYL ALCOHOL 15 ML BOTTLE EACHEYE SCH ×2 (09:05→18:11)
[2017-07-16] MEDS ORDERED: NEUTRA PHOS 1 POWD.PACKET PO ONE (14:00)
[2017-07-16] MEDS: METOCLOPRAMIDE HCL 10 MG/2 ML VIAL IV SCH (18:07)
--- NOTE | 2017-07-16 19:00 | NUR ---
RN NOTES: PATIENT REMAINS STABLE DURING SHIFT. NO ACUTE DISTRESS NOTED. CONTINUE TO HOLD TUBE FEEDING, DUE TO HIGH RESIDUAL. REGLAN CHANGED TO IV PUSH PER DR. OCHOA'S ORDER. SAFETY MEASURES OBSERVED. WILL ENDORSE TO PM SHIFT FOR CONTINUITY OF CARE.
--- NOTE | 2017-07-16 20:00 | NUR ---
RN NOTES PT IS OBTUNDED ON BED. WITH TRACH PORTEX 9 CONNECTED TO VENT SETTING AC 14 TV 500 FIO2 40% PEEP 5 TOLERATED WELL. TELE MONITOR REVEALS SR 93. NO ACUTE RESP DISTRESS. SUCTIONED WITH WHITISH /YELLOWISH THICK SECRETION SHOWS. GTF FIBERSOURCE @ 50 CC/HR HELD DUE TO 25OCC GREEN COLOR RESIDUAL. GT SITE INTACT AND PATENT. IV SITE ON SASKIA PICC LINE RUNNING NS @ 100 CC/HR INTACT AND PATENT. F/C DRAINED WITH YELLOW COLOR URINE. KEPT PT CLEAN AND DRY. OFFLOADED EXT WITH PILLOWS. WILL FREQUENTLY MONITOR.
[2017-07-16] MEDS: ENOXAPARIN SODIUM 40 MG/0.4 ML DISP.SYRIN SQ SCH (21:00)
[2017-07-16] MEDS ORDERED: METOCLOPRAMIDE HCL 10 MG/10 ML UDC GT SCH (21:00)
[2017-07-16] MEDS ORDERED: LEVOFLOXACIN 500 MG /D5W 100ML 100 ML IV ONE (23:15)
[2017-07-16] MEDS: LEVOFLOXACIN 500 MG /D5W 100ML 500 MG in PREMIX 1 EA IV SCH (23:48)
[2017-07-17] VITALS: BP 101/61
[2017-07-17] MEDS: ALBUTEROL FS 2.5 MG/0.5 ML VIAL.NEB NEB SCH ×7 (00:19→23:12)
[2017-07-17] MEDS: IPRATROPIUM NEB FS 0.5 MG/2.5 ML AMPUL.NEB NEB SCH ×7 (00:20→23:12)
[2017-07-17] MEDS: METOCLOPRAMIDE HCL 10 MG/2 ML VIAL IV SCH ×4 (01:43→23:32)
[2017-07-17 04:00] VITALS: BP 100/62
[2017-07-17] MEDS: MEROPENEM 500 MG in IV NS 0.9% 50 ML IV SCH ×3 (05:46→21:13)
--- NOTE | 2017-07-17 07:05 | NUR ---
RN INITIAL NOTE PATIENT RECEIVED IN BED RESTING. PATIENT IS OBTUNDED, NON-VERBAL. NO S/S OF PAIN OR DISCOMFORT. SINUS TACHY ON TELE MONITOR. HAS TRACH: PORTEX #9. TOLERATING VENT SETTINGS WELL. GTUBE FLUSHED, PLACEMENT VERIFIED. RENEE CATHETER DRAINING TO GRAVITY. SKIN IS WARM AND DRY TO TOUCH. IV SITE FLUSHED, PATENT. SAFETY PRECAUTIONS IN PLACE AT ALL TIMES. WILL CONTINUE TO MONITOR CLOSELY.
--- NOTE | 2017-07-17 07:05 | NUR ---
RN NOTES NO SIGNIFICANT CHANGES THROUGHOUT THE SHIFT. PT REMAINED SR HR 80'S. TRACH AND VENT SETTING TOLERATED WELL. NO ASE FROM IV ATB. GTF RUNNING AT THIS TIME. LAST RESIDUAL CHECKED IS 60 CC WITH BLACK GREENISH COLOR OUTPUT. PT VS WNL. ALL DUE MEDICINE GIVEN ORDERED. KEPT PT CLEAN AND COMFORTABLE IN BED. ENDORSED CONTINUITY OF CARE TO AM NURSE.
[2017-07-17 08:00] VITALS: BP 98/56
[2017-07-17] MEDS: DOCUSATE SODIUM LIQ 100 MG/10 ML UDC GT SCH ×2 (09:00→16:52)
[2017-07-17] MEDS: MULTIVITAMINS,THERAGRAN 1 UDTAB TABLET PO SCH (09:00)
[2017-07-17] MEDS: METOPROLOL TARTRATE 25 MG TABLET GT SCH ×2 (09:00→16:53)
[2017-07-17] MEDS: LACTOBACILLUS RHAMNOSUS GG 1 EACH CAP.SPRINK PO SCH ×2 (09:00→16:52)
[2017-07-17] MEDS: FAMOTIDINE (20 MG) 20 MG TABLET GT SCH (09:00)
[2017-07-17] MEDS: CHLORHEXIDINE GLUCONATE 15 ML UDC MM SCH ×2 (09:00→16:52)
[2017-07-17] MEDS: ASCORBIC ACID 500 MG TABLET GT SCH (09:00)
[2017-07-17] MEDS: LINEZOLID RTU BAG 600 MG in PREMIX 1 EA IV SCH ×2 (09:14→21:13)
[2017-07-17] MEDS: POLYVINYL ALCOHOL 15 ML BOTTLE EACHEYE SCH ×2 (09:14→16:53)
[2017-07-17] MEDS: IV NS 0.9% 1,000 ML IV PRN (09:14)
[2017-07-17 12:00] VITALS: BP 97/61
[2017-07-17 16:00] VITALS: BP 100/58
--- NOTE | 2017-07-17 19:09 | NUR ---
RN CLOSING NOTE CARRIED OUT ALL MD ORDERS, ANTICIPATED PT NEEDS. KEPT CLEAN AND DRY. WILL GIVE REPORT TO PM RN./
--- NOTE | 2017-07-17 19:30 | NUR ---
Received patient in the bed.Female family member at bedside.No unusual signs or symptoms observed or reported,no signs of discomfort or distress,resting quietly
[2017-07-17 20:00] VITALS: BP 107/70
[2017-07-17] MEDS: LEVOFLOXACIN 500 MG /D5W 100ML 500 MG in PREMIX 1 EA IV SCH (21:13)
[2017-07-17] MEDS: ENOXAPARIN SODIUM 40 MG/0.4 ML DISP.SYRIN SQ SCH (21:15)
[2017-07-18] VITALS: BP 101/51
--- NOTE | 2017-07-18 00:45 | NUR ---
BATCHING OPERATOR: RECEIVED PT OBTUNDED FROM SOUND SYSTEM INSTALLER ROGER; VDRF AND TOLERATING VENT SETTINGS ORDERED. NO ACUTE DISTRESS, NO EVIDENCE OF DISCOMFORT SUCH FACIAL GRIMACE. SR ON TELE MONITOR. AFEBRILE. GTF RUNNING FS AT 35ML/HR WT MAX GOAL RATE OF 50ML/HR. NOTED WT MELTON COLORED 100ML RESIDUAL. WILL CONTINUE SAME RATE AND WILL INCREASE TOLERATED. SASKIA PICC WT DRESSING D/C/I WT NO S/S OF COMPLICATIONS AND INFUSING NS AT 100ML/HR. F/C PATENT AND INTACT DRAINING YELLOW COLORED URINE TO GRAVITY. HOB AT 35 DEGREES. SAFETY PRECAUTION NOTED. WILL CONTINUE TO MONITOR.
[2017-07-18] MEDS: IV NS 0.9% 1,000 ML IV PRN (01:59)
[2017-07-18] MEDS: ALBUTEROL FS 2.5 MG/0.5 ML VIAL.NEB NEB SCH ×3 (02:53→13:08)
[2017-07-18] MEDS: IPRATROPIUM NEB FS 0.5 MG/2.5 ML AMPUL.NEB NEB SCH ×3 (02:53→11:29)
[2017-07-18 04:00] VITALS: BP 96/48
[2017-07-18] MEDS: MEROPENEM 500 MG in IV NS 0.9% 50 ML IV SCH ×2 (05:49→12:47)
--- NOTE | 2017-07-18 06:00 | NUR ---
STRESS ENGINEER: GT RESIDUAL CHECKED WT ONLY 60CC AT THIS TIME. RATE INCREASED TO 40ML/HR UNTIL MAX. GOAL RATE OF 50ML/HR IS REACHED TARIK. NO SIGNIFICANT HARRY. VS WITHIN PT'S BASELINE. NO ACUTE DISTRESS. NO EVIDENCE OF DISCOMFORT.
[2017-07-18 07:30] LABS: BASOPHILS % (AUTO) 0.2 % (0.0-2.0); EOSINOPHILS # (AUTO) 0.3 /CMM (0.0-0.7); EOSINOPHILS % (AUTO) 2.5 % (0.0-6.0); HEMATOCRIT 27 % (39-51); HEMOGLOBIN 8.9 g/dL (13.5-17.5); LYMPHOCYTES # (AUTO) 1.4 /CMM (0.8-4.8); LYMPHOCYTES % (AUTO) 13.8 % (20.0-44.0); MEAN CORPUSCULAR HEMOGLOBIN 27 PG (26.0-33.0); MEAN CORPUSCULAR HGB CONC 33 g/dl (31.0-36.0); MEAN CORPUSCULAR VOLUME 82 fL (80-96); MONOCYTES # (AUTO) 1.2 /CMM (0.1-1.30); MONOCYTES % (AUTO) 11.3 % (2.0-12.0); NEUTROPHILS # (AUTO) 7.5 /CMM (1.8-8.9); NEUTROPHILS % (AUTO) 72.2 % (43.0-81.0); PLATELET COUNT (AUTO) 236 /CMM (150-450); RDW COEFFICIENT OF VARIATION 19.4 (11.5-15.0); RED BLOOD CELL COUNT(AUTO) 3.33 MIL/uL (4.5-6.0); WHITE BLOOD COUNT (AUTO) 10.4 K/uL (4.3-11.0)
[2017-07-18 08:00] VITALS: BP 103/54
--- NOTE | 2017-07-18 08:10 | NUR ---
RN INITIAL NOTE PATIENT RECEIVED IN BED. PATIENT IS OBTUNDED, NON-VERBAL. SINUS RHYTHM ON TELE MONITOR. NO S/S OF PAIN OR DISCOMFORT. PATIENT HAS TRACH: PORTEX #9. TOLERATING VENT SETTINGS WELL. SKIN IS WARM AND DRY TO TOUCH. IV SITE FLUSHED, PATENT. GTUBE FLUSHED, PATENT. PLACEMENT VERIFIED RENEE CATHETER DRAINING TO GRAVITY. PED IN LOCKED, LOW POSITION WITH TWO SIDE RAILS UP. WILL CONTINUE TO MONITOR CLOSELY.
[2017-07-18] MEDS: POLYVINYL ALCOHOL 15 ML BOTTLE EACHEYE SCH (08:44)
[2017-07-18] MEDS: METOCLOPRAMIDE HCL 10 MG/2 ML VIAL IV SCH (08:44)
[2017-07-18] MEDS: DOCUSATE SODIUM LIQ 100 MG/10 ML UDC GT SCH (08:44)
[2017-07-18] MEDS: LACTOBACILLUS RHAMNOSUS GG 1 EACH CAP.SPRINK PO SCH (08:44)
[2017-07-18] MEDS: CHLORHEXIDINE GLUCONATE 15 ML UDC MM SCH (08:44)
[2017-07-18] MEDS: ASCORBIC ACID 500 MG TABLET GT SCH (08:44)
[2017-07-18] MEDS: FAMOTIDINE (20 MG) 20 MG TABLET GT SCH (08:44)
[2017-07-18] MEDS: MULTIVITAMINS,THERAGRAN 1 UDTAB TABLET PO SCH (08:44)
[2017-07-18] MEDS: METOPROLOL TARTRATE 25 MG TABLET GT SCH (08:45)
[2017-07-18] MEDS: LINEZOLID RTU BAG 600 MG in PREMIX 1 EA IV SCH (08:46)
[2017-07-18 12:00] VITALS: BP 98/48
--- NOTE | 2017-07-18 14:57 | NUR ---
RN CLOSING NOTE PATIENT DISCHARGED TO [facility]. REPORT CALLED TO [facility]. FAXED MICRO RESULTS PER HER REQUEST. PATIENTS ID REMOVED. TRANSFERRED VIA AMBULANCE
== END 2017-07-18 15:07 | DRG 720 ==
LOC: ER 19:51 → ICU 21:36 → TELE-TD 07-15 13:17 → TELE1 07-16 11:04
PROVIDERS: ADMIT Nurse Practitioner Acute Care; ATTEND Nurse Practitioner Acute Care
PROC: 5A1955Z Respiratory Ventilation, Greater than 96 Consecutive Hours (ICD-10-PCS; principal; 2017-07-13)
PROC: B548ZZA Ultrasonography of Superior Vena Cava, Guidance (ICD-10-PCS; 2017-07-14)
PROC: 02HV33Z Insertion of Infusion Device into Superior Vena Cava, Percutaneous Approach (ICD-10-PCS; 2017-07-14)
DX: A41.9 Sepsis, unspecified organism (principal); G12.21 Amyotrophic lateral sclerosis; R65.21 Severe sepsis with septic shock; E43 Unspecified severe protein-calorie malnutrition; Z99.11 Dependence on respirator [ventilator] status; J18.9 Pneumonia, unspecified organism; G93.49 Other encephalopathy; J96.11 Chronic respiratory failure with hypoxia; R53.2 Functional quadriplegia; Z93.0 Tracheostomy status; R13.10 Dysphagia, unspecified; Z93.1 Gastrostomy status; Z88.1 Allergy status to other antibiotic agents; Z79.899 Other long term (current) drug therapy; K21.9 Gastro-esophageal reflux disease without esophagitis; D68.9 Coagulation defect, unspecified; E83.39 Other disorders of phosphorus metabolism; E83.42 Hypomagnesemia; J98.11 Atelectasis; E87.6 Hypokalemia; K74.60 Unspecified cirrhosis of liver; D63.8 Anemia in other chronic diseases classified elsewhere; B96.89 Other specified bacterial agents as the cause of diseases classified elsewhere; Z87.440 Personal history of urinary (tract) infections; N39.0 Urinary tract infection, site not specified
CPT/HCPCS: 31720; 36415; 71010-TC; 76705-TC; 80048-TC; 80053-TC; 80061-TC; 80076-TC; 81000-TC; 83605-TC; 83735-TC; 84100-TC; 84443-TC; 84484-TC; 85025-TC; 85378-TC; 85730-TC; 87040-TC; 87070-TC; 87081-TC; 87086-TC; 87186-TC; 94002-TC; 94003-TC; 94762-TC; 99082-TC; A4216; A4606; J1650; J1956; J2020; J2185; J2543; J2765; J3370; J3475; J3490; J7030; J7042; J7060; J8597

== ENCOUNTER 2018-09-25 23:37 | Emergency (ER) | payer MEDICAID, OTHER ==
[~2018-09-25] VITALS: Ht 165.1 cm; Wt 48.1 kg
[~2018-09-25 23:37] MED LIST changes: +SACC250C GT; -SACC250C6 GT
--- NOTE | 2018-09-25 23:45 | NUR ---
PT BIBPA FROM SNF C/O LEFT EYE BLEEDING. NOTED BILATERAL EYE REDDNESS ON ARRIVAL. PER EMT, PT IN COMATOSE STATE AND BILATERAL BLINDNESS. PT VENT DEPENDENT, SETTINGS : AC 10, 450, 40, +5. PT NONVERBAL, MOTHER AT BEDSIDE. NO ACUTE DISTRESS NOTED AT THIS TIME. PLACED ON MONITOR, WILL CONTINUE TO MONITOR
[2018-09-25 23:50] VITALS: BP 109/72
--- NOTE | 2018-09-25 23:50 | NUR ---
MD AT BEDSIDE FOR EVALUATION
--- NOTE | 2018-09-25 23:50 | NUR ---
RT NOTE PT RCVD VIA TRANSPORT TEAM AND BEING VENTILATED VIA TRANSPORT VENT. PT PLACED ON MECHANICAL VENT W/ NOTED SETTINGS GIVEN BY TRANSPORT. VENT PLUGGED INTO RED OUTLET. ALARMS ARE SET AND AUDIBLE. AMBU BAG AT BEDSIDE. PT TRACH IS PATENT AND SECURE. PT TOLERATING SETTINGS WELL. NO SOB OR RESPIRATORY DISTRESS NOTED AT THIS TIME. WILL CONTINUE TO MONITOR.
--- NOTE | 2018-09-26 00:13 | NUR ---
SPOKE WITH DONNA FROM [facility] FOR TRANSPORTATION. TRIP #[id number]
[2018-09-26 01:30] VITALS: BP 102/67
--- NOTE | 2018-09-26 01:59 | NUR ---
GAVE REPORT TO ARIANE FLOR FROM [facility] [address] FOR TRANSPORTATION HARRY
--- NOTE | 2018-09-26 02:04 | NUR ---
SPOKE WITH JAVED FROM [facility] AND INFORMED PT IS RETURNING TO FACILITY
[2018-09-26 02:12] VITALS: BP 110/74
== END 2018-09-26 02:14 | disposition home or self-care (01) ==
LOC: ER 23:37
DX: H10.89 Other conjunctivitis (principal); G93.40 Encephalopathy, unspecified; G12.21 Amyotrophic lateral sclerosis; R13.10 Dysphagia, unspecified; J96.10 Chronic respiratory failure, unspecified whether with hypoxia or hypercapnia; I10 Essential (primary) hypertension; K21.9 Gastro-esophageal reflux disease without esophagitis; F17.200 Nicotine dependence, unspecified, uncomplicated; H54.8 Legal blindness, as defined in USA; Z99.11 Dependence on respirator [ventilator] status; Z93.0 Tracheostomy status; Z93.1 Gastrostomy status; Z88.1 Allergy status to other antibiotic agents
CPT/HCPCS: 99283; A4606